=== PATIENT | male | born 1965 | race Two or more races ===

== ENCOUNTER 2024-10-02 20:38 | Inpatient (IN) | payer BC, OTHER ==
[~2024-10-02] VITALS: Ht 177.8 cm; Wt 75.9 kg
[~2024-10-02 20:38] MED LIST: METF-370
--- NOTE | 2024-10-02 21:03 | ED.PDOC ---
GI ASSESSMENT HPI Comments HPI: 59-year-old male presents to the ED with a chief complaint of nausea/vomiting onset 2 days. Patient states he has a hiatal hernia and gets monthly episodes of nausea/vomiting, resolves on its own but this episode has lasted 2 days. Patient describes his vomit as a dark brown color. Not able to eat/ drink due to sympto ms. Initial Vital Signs: Temp : 97.9 F BP: 147/79 HR: 115 RR: 20 SpO2: 99% Past Medcial History: Hiatal hernia, HTN, HLD, DM Past Surgical History: Cholecystectomy Johns HPI: Poor Historian. Past Medcial History: Past Surgical History: REVIEW OF SYSTEMS: CONSTITUTIONAL: Denies acute: fever, diaphoresis, chills, generalized weakness. HEAD: Denies acute: headache, photophobia Eyes: Denies acute: Double vision, vision loss, eye pain, eye discharge. EARS: Denies acute: tinnitus, hearing loss, ear discharge, ear pain, THROAT: Denies acute: sore throat, swelling, difficulty swallowing , pain with swallowing, change in voice. NECK: Denies acute: neck pain, neck swelling, stiff neck. HEART: Denies acute : chest pain, palpitations, LUNGS: Denies acute: SOB, wheezing, cough, hemoptysis ABDOMEN: Denies acute: diarrhea, melena , hematemesis, hematochezia SKIN: Denies acute: rash, redness, lesions, itchiness. EXTREMITIES: Denies acute: calf pain, numbness, tingling, weakness, denies pain in extremity. Denies acute: Low back pain. Neuro: Denies acute: focal neurological deficit, motor or sensory focal neurological deficit, tremors, seizure like activity, confusion, dizziness, change in mental status, loss of bowel or bladder function, cauda equina like symptoms. : Denies acute: dysuria, hematuria, flank pain, increase in urinary frequency. PSYCH: Denies acute: hallucination, suicidal ideation, homicidal ideation. PHYSICAL EXAM: General: no acute distress, awake and alert. Head: normocephalic, atraumatic. Neck: supple, trachea is midline, no swelling. Throat: Normal phonation. Eyes:, no erythema, no purulent discharge, no proptosis, no icterus. Heart: regular rate, regular rhythm, no significant murmur appreciated. Lungs: no apparent respiratory distress, Able to speak in full sentences. No wheezing, no rhonchi, no crackles. No stridors Clear to auscultation bilaterally. Abdomen: Epigastric tender to palpation, non distended, soft, no guarding, no rebound, + bowel sounds. Neuro: Awake, Alert, oriented to name, self, situation, follows commands GCS=15. Speech is normal. Skin: no petechia, no purpura, no cyanosis, non-pale, not jaundice. Lower extremities: --no - Pitting edema no deformity, no focal swelling, no calf TTP. Makes eye contact. moves all four extremities. Face: no apparent facial droop. Ambulating in the ED independently. Time Seen by MD: 20:59 Reviewed Notes: Medications, Allergies Allergies: Coded Allergies: Aspirin (Verified Allergy, Unknown, 10/02/24) Home Meds Reported Medications Metformin Hydrochloride (Metformin Hcl) 500 Mg Tab, BID 02/05/13 Information Source: Patient Mode of Arrival: Ambulatory Timing: Days Duration: Since onset Prehospital treatment: None Vomitus: Other (dark brown color) Severity: Moderate Recent: None Pain Location: Epigastric Associated sign and symptoms: Nausea, Vomiting, Abdominal Pain Past Medical History PAST MEDICAL HISTORY: DM, High Lipids, HTN Past Medical History (Other): hiatal hernia Surgical History: Cholecystectomy Family History Family History: Unknown Social History Smoker: Cigarettes Alcohol: Occasionally Drugs: Marijuana Lives In: Home Was a procedure done? Was a procedure done?: No X-Ray, Labs, Meds, VS Vital Signs Date Time Temp Pulse Resp B/P (MAP) Pulse Ox O2 Delivery O2 Flow Rate FiO2 10/02/24 21:01 97.9 115 20 147/79 (101) 99 Lab Test 10/02/24 21:36 10/02/24 21:06 Range/Units White Blood Count 20.0 H 4.4-10.8 10^3/uL Red Blood Count 4.99 4.5-5.90 10^6/uL Hemoglobin 13.2 L 13.5-17.5 g/dL Hematocrit 39.9 L 41.0-53.0 % Mean Corpuscular Volume 79.8 L 80.0-100.0 fL Mean Corpuscular Hemoglobin 26.4 L 28.0-32.0 pg Mean Corpuscular Hemoglobin Concent 33.1 32.0-36.0 g/dL Red Cell Distribution Width 15.4 H 11.8-14.3 % Platelet Count 711 H 140-450 10^3/uL Mean Platelet Volume 7.3 6.9-10.8 fL Neutrophils (%) (Auto) 82.5 H 37.0-80.0 % Lymphocytes (%) (Auto) 8.2 L 10.0-50.0 % Monocytes (%) (Auto) 8.8 0.0-12.0 % Eosinophils (%) (Auto) 0.0 0.0-7.0 % Basophils (%) (Auto) 0.5 0.0-2.0 % Neutrophils # (Auto) 16.5 H 1.6-8.6 10 ^3/uL Lymphocytes # (Auto) 1.6 0.4-5.4 10 ^3/uL Monocytes # (Auto) 1.8 H 0-1.3 10 ^3/uL Eosinophils # (Auto) 0 0-0.8 10 ^3/uL Basophils # (Auto) 0.1 0-0.2 10 ^3/uL Nucleated Red Blood Cells 0.0 % Sodium Level 136 136-145 mmol/L Potassium Level 3.7 3.5-5.1 mmol/L Chloride Level 100 98-107 mmol/L Carbon Dioxide Level 18 L 20-31 mmol/L Anion Gap 18 H 5-15 Blood Urea Nitrogen 18 9-23 mg/dL Creatinine 0.74 0.700-1.30 mg/dL Glomerular Filtration Rate Calc 105 >90 mL/min BUN/Creatinine Ratio 24.3 H 10.0-20.0 Serum Glucose 160 H 74-106 mg/dL Lactic Acid Level 1.3 0.4-2.0 mmol/L Calcium Level 10.5 H 8.7-10.4 mg/dL Magnesium Level 2.0 1.6-2.6 mg/dL Total Bilirubin 0.8 0.2-1.0 mg/dL Aspartate Amino Transferase (AST) 42 H 13-40 U/L Alanine Aminotransferase (ALT) 18 7-40 U/L Alkaline Phosphatase 301 H 46-116 U/L Troponin I High Sensitivity 6 </=54 ng/L Total Protein 7.8 5.7-8.2 g/dL Albumin 5.0 H 3.2-4.8 g/dL Lipase 27 12-53 U/L Urine Color Yellow Yellow Urine Clarity Clear Clear Urine pH 5.5 5.0-9.0 Urine Specific [place] 1.043 H 1.001-1.035 Urine Protein 1+ H Negative Urine Ketones 4+ H Negative Urine Blood 1+ H Negative /uL Urine Nitrite Negative Negative Urine Bilirubin Negative Negative Urine Urobilinogen Normal Negative mg/dL Urine Leukocyte Esterase Negative Negative /uL Urine RBC 5 0 - 3 /hpf Urine WBC 1 0 - 3 /hpf Urine Squamous Epithelial Cells None seen <5 /hpf Urine Bacteria None seen None Seen /hpf Urine Glucose 4+ H Normal mg/dL [facility] [id number] [address] Ph: [phone] DIAGNOSTIC IMAGING Diagnostic Imaging Report : [id number] Signed PATIENT: BAILEY JOHNS ACCT: [id number] UNIT: [id number] : 1965 LOC: ER ROOM / BED: / AGE / SEX: 59 / M ADM STATUS: REG ER SERVICE 05 ORDERING PHYSICIAN: TIANA MEJIA DO PROCEDURE(s): ABPL - CT AB PEL WO CON-NO ORAL OR IV REASON: epig pain n/v ORDER NUMBER(s): [id number], ACCESSION NUMBER(s): [id number] Exam: CT CT AB PEL WO CON-NO ORAL OR IV History: epig pain n/v Comparison Study: None available at time of dictation. TECHNIQUE: Multidetector CT of the abdomen was performed from lung bases to pubic symphysis. Imaging was performed without IV contrast. Axial, coronal and sagittal multiplanar reformats were obtained from the axial data set by the technologist. Radiation Dose Information: CT Dose: CTDI volume is 7.82 mGy. Dose-length product is 46.72 mGy*cm FINDINGS: Evaluation of solid organs is limited due to lack of intravenous contrast use. Findings: Lung Bases: No acute or significant lung base finding. Normal heart size. No pleural or pericardial effusion. Liver: Above and lateral to the caudate lobe is an ill-defined area measuring 5.1 by 4.6 cm of increased tissue density. The tissue density is approximately 96 Hounsfield units and may represent hemorrhage. There are also small collections of gas most likely in the biliary system however can not entirely exclude portal air. Gallbladder and Biliary Tree: Appears to have been surgically removed. Spleen: Unremarkable Pancreas: The pancreas is grossly normal in appearance. Adrenal Glands: Unremarkable Kidneys: Kidneys are grossly normal without calculi or hydronephrosis. Bladder: Grossly unremarkable for degree of distention. Bowel: The stomach is grossly normal in appearance. Small bowel and colon are normal in caliber and distribution. The appendix is not visualized; however, no secondary findings of acute appendicitis identified. Ascites: Absent Lymphadenopathy: No mesenteric, retroperitoneal or periportal lymphadenopathy. Abdominal Wall and Mesentery: Unremarkable. Vasculature: The visualized abdominal aorta is normal in size and caliber. Evaluation of abdominal and pelvic vessels is limited due to lack of intravenous contrast. Pelvic Organs: Unremarkable Musculoskeletal: No aggressive focal bony lesions, acute fractures or dislocation. Soft tissues: Unremarkable IMPRESSION: 1. Ill-defined region of increased tissue density in the liver measuring 5.1 x 4.6 cm. Tissue density is 96 Hounsfield units and may represent acute hemorrhage. Correlate clinical history. 2. Patient appears to be status post cholecystectomy. 3. Gas most likely in the biliary tree however can not entirely exclude portal gas. 4. No free air or free fluid. Radiation optimization: All CT scans at this facility use at least one of these dose optimization techniques: automated exposure control mA and/or kV adjustment per patient size (includes targeted exams where dose is matched to clinical indication) or iterative reconstruction. HS:Y ATED BY: KATHLEEN RODRIGUEZ Jr., DO DICTATED DATE/TIME: 10/02/242143 SIGNED BY: KATHLEEN RODRIGUEZ Jr., SIGNED DATE/TIME: 10/02/242143 CC: Time of 1ST Reevaluation: 21:29 Reevaluation 1ST: Unchanged Time of 2ND Reevaluation: 22:17 (CT scan findings suggest possible portal vein gas. Patient clinically looks stable. He has history of cholecystectomy. He gets these episodes at least once a month but this one lasted a little longer. I started the patient on antibiotics given his leukocytosis.) Patient Education/Counseling: Diagnosis, Treatment, Prognosis Family Education/Counseling: No Family Present Departure 1 Departure Time of Disposition: 22:15 Impression: Primary Impression: Epigastric abdominal pain Additional Impressions: Hiatal hernia Nausea & vomiting Leukocytosis Abnormal finding on CT scan Disposition: ADMITTED INPATIENT Admit to: Tele Condition: Guarded Additional Instructions: [address] [address] Ph: [phone] DIAGNOSTIC IMAGING Diagnostic Imaging Report : [id number] Signed PATIENT: BAILEY JOHNS ACCT: [id number] UNIT: [id number] : 1965 LOC: ER ROOM / BED: / AGE / SEX: 59 / M ADM STATUS: REG ER SERVICE 05 ORDERING PHYSICIAN: TIANA MEJIA DO PROCEDURE(s): ABPL - CT AB PEL WO CON-NO ORAL OR IV REASON: epig pain n/v ORDER NUMBER(s): [id number], ACCESSION NUMBER(s): [id number] Exam: CT CT AB PEL WO CON-NO ORAL OR IV History: epig pain n/v Comparison Study: None available at time of dictation. TECHNIQUE: Multidetector CT of the abdomen was performed from lung bases to pubic symphysis. Imaging was performed without IV contrast. Axial, coronal and sagittal multiplanar reformats were obtained from the axial data set by the technologist. Radiation Dose Information: CT Dose: CTDI volume is 7.82 mGy. Dose-length product is 46.72 mGy*cm FINDINGS: Evaluation of solid organs is limited due to lack of intravenous contrast use. Findings: Lung Bases: No acute or significant lung base finding. Normal heart size. No pleural or pericardial effusion. Liver: Above and lateral to the caudate lobe is an ill-defined area measuring 5.1 by 4.6 cm of increased tissue density. The tissue density is approximately 96 Hounsfield units and may represent hemorrhage. There are also small collections of gas most likely in the biliary system however can not entirely exclude portal air. Gallbladder and Biliary Tree: Appears to have been surgically removed. Spleen: Unremarkable Pancreas: The pancreas is grossly normal in appearance. Adrenal Glands: Unremarkable Kidneys: Kidneys are grossly normal without calculi or hydronephrosis. Bladder: Grossly unremarkable for degree of distention. Bowel: The stomach is grossly normal in appearance. Small bowel and colon are normal in caliber and distribution. The appendix is not visualized; however, no secondary findings of acute appendicitis identified. Ascites: Absent Lymphadenopathy: No mesenteric, retroperitoneal or periportal lymphadenopathy. Abdominal Wall and Mesentery: Unremarkable. Vasculature: The visualized abdominal aorta is normal in size and caliber. Evaluation of abdominal and pelvic vessels is limited due to lack of intravenous contrast. Pelvic Organs: Unremarkable Musculoskeletal: No aggressive focal bony lesions, acute fractures or dislocation. Soft tissues: Unremarkable IMPRESSION: 1. Ill-defined region of increased tissue density in the liver measuring 5.1 x 4.6 cm. Tissue density is 96 Hounsfield units and may represent acute hemorrhage. Correlate clinical history. 2. Patient appears to be status post cholecystectomy. 3. Gas most likely in the biliary tree however can not entirely exclude portal gas. 4. No free air or free fluid. Radiation optimization: All CT scans at this facility use at least one of these dose optimization techniques: automated exposure control mA and/or kV adjustment per patient size (includes targeted exams where dose is matched to clinical indication) or iterative reconstruction. HS:Y ATED BY: KATHLEEN RODRIGUEZ Jr., DO DICTATED DATE/TIME: 10/02/242143 SIGNED BY: KATHLEEN RODRIGUEZ Jr., DO SIGNED DATE/TIME: 10/02/242143 CC: Discharged With: Self Stability Stability form required: No Heart Score Heart Score: Heart Score Response (Comments) Value History Slightly Suspicious 0 EKG Normal 0 Age 45-64 1 Risk Factors 1 or 2 risk factors 1 Troponin Normal limit 0 Total 2 I personally scribed for TIANA MEJIA DO ([email or web address]) on 10/02/24 at 21:03. Electronically submitted by Cathleen Andre ([email or web address]). I personally scribed for TIANA MEJIA DO ([email or web address]) on 10/02/24 at 21:05. Electronically submitted by Cathleen Andre ([email or web address]). I personally scribed for TIANA MEJIA DO ([email or web address]) on 10/02/24 at 21:09. Electronically submitted by Cathleen Andre ([email or web address]). I personally scribed for TIANA MEJIA DO ([email or web address]) on 10/02/24 at 21:10. Electronically submitted by Cathleen Andre ([email or web address]). I personally scribed for TIANA MEJIA DO ([email or web address]) on 10/02/24 at 21:25. Electronically submitted by Cathleen Andre ([email or web address]). I personally scribed for TIANA MEJIA DO ([email or web address]) on 10/02/24 at 21:50. Electronically submitted by Cathleen Andre ([email or web address]). I personally scribed for TIANA MEJIA DO ([email or web address]) on 10/02/24 at 22:00. Electronically submitted by Cathleen Andre ([email or web address]). TIANA MEJIA DO Oct 02, 2024 21:03
--- NOTE | 2024-10-02 21:47 | DVH ---
Exam: CT CT AB PEL WO CON-NO ORAL OR IV History: epig pain n/v Comparison Study: None available at time of dictation. TECHNIQUE: Multidetector CT of the abdomen was performed from lung bases to pubic symphysis. Imaging was performed without IV contrast. Axial, coronal and sagittal multiplanar reformats were obtained fr om the axial data set by the technologist. Radiation Dose Information: CT Dose: CTDI volume is 7.82 mGy. Dose-length product is 46.72 mGy*cm FINDINGS: Evaluation of solid organs is limited due to lack of intravenous contrast use. Findings: Lung Bases: No acute or significant lung base finding. Normal heart size. No pleural or pericardial effusion. Liver: Above and lateral to the caudate lobe is an ill-defined area measuring 5.1 by 4.6 cm of increa sed tissue density. The tissue density is approximately 96 Hounsfield units and may represent hemorrh age. There are also small collections of gas most likely in the biliary system however can not entire ly exclude portal air. Gallbladder and Biliary Tree: Appears to have been surgically removed. Spleen: Unremarkable Pancreas: The pancreas is grossly normal in appearance. Adrenal Glands: Unremarkable Kidneys: Kidneys are grossly normal without calculi or hydronephrosis. Bladder: Grossly unremarkable for degree of distention. Bowel: The stomach is grossly normal in appearance. Small bowel and colon are normal in caliber and d istribution. The appendix is not visualized; however, no secondary findings of acute appendicitis id entified. Ascites: Absent Lymphadenopathy: No mesenteric, retroperitoneal or periportal lymphadenopathy. Abdominal Wall and Mesentery: Unremarkable. Vasculature: The visualized abdominal aorta is normal in size and caliber. Evaluation of abdominal a nd pelvic vessels is limited due to lack of intravenous contrast. Pelvic Organs: Unremarkable Musculoskeletal: No aggressive focal bony lesions, acute fractures or dislocation. Soft tissues: Unremarkable IMPRESSION: 1. Ill-defined region of increased tissue density in the liver measuring 5.1 x 4.6 cm. Tissue density is 96 Hounsfield units and may represent acute hemorrhage. Correlate clinical history. 2. Patient appears to be status post cholecystectomy. 3. Gas most likely in the biliary tree however can not entirely exclude portal gas. 4. No free air or free fluid. Radiation optimization: All CT scans at this facility use at least one of these dose optimization kristin hniques: automated exposure control mA and/or kV adjustment per patient size (includes targeted exam s where dose is matched to clinical indication) or iterative reconstruction. HS:Y
[2024-10-02 21:52] LABS: Urine Bacteria None Seen /hpf (None Seen)
[2024-10-02 21:55] LABS: Basophils # (auto) 0.1 10 ^3/uL (0-0.2); Basophils % (auto) 0.5 % (0.0-2.0); Eosinophils # (auto) 0 10 ^3/uL (0-0.8); Hematocrit 39.9 % (41.0-53.0); Hemoglobin 13.2 g/dL (13.5-17.5); Lymphocytes # (auto) 1.6 10 ^3/uL (0.4-5.4); Lymphocytes % (auto) 8.2 % (10.0-50.0); Mean Corpuscular Hemoglobin 26.4 pg (28.0-32.0); Mean Corpuscular Hgb Conc. 33.1 g/dL (32.0-36.0); Mean Corpuscular Volume 79.8 fL (80.0-100.0); Monocytes # (auto) 1.8 10 ^3/uL (0-1.3); Monocytes % (auto) 8.8 % (0.0-12.0); Neutrophils # (auto) 16.5 10 ^3/uL (1.6-8.6); Neutrophils % (auto) 82.5 % (37.0-80.0); Platelet Count (auto) 711 10^3/uL (140-450); Red Blood Cells 4.99 10^6/uL (4.5-5.90); Red Cell Distribution Width 15.4 % (11.8-14.3)
[2024-10-02 22:01] LABS: Urine Blood 1+ /uL (Negative); Urine Clarity Clear (Clear); Urine Color Yellow (Yellow); Urine Protein, UAD 1+ (Negative); Urine Specific Gravity 1.043 (1.001-1.035); Urine Urobilinogen Normal (Negative); Urine WBC 1 /hpf (0 - 3); Urine pH 5.5 (5.0-9.0)
[2024-10-02 22:13] LABS: Alanine Aminotransferase 18 U/L (7-40); Anion Gap 18 (5-15); BUN/Creatinine Ratio 24.3 (10.0-20.0); Blood Urea Nitrogen 18 mg/dL (9-23); Chloride 100 mmol/L (98-107); Lipase 27 U/L (12-53); Potassium 3.7 mmol/L (3.5-5.1); Sodium 136 mmol/L (136-145)
[2024-10-02 22:14] LABS: Alkaline Phosphatase 301 U/L (46-116); Aspartate Aminotransferase 42 U/L (13-40); Bilirubin, Total 0.8 mg/dL (0.2-1.0); Calcium 10.5 mg/dL (8.7-10.4); Carbon Dioxide 18 mmol/L (20-31); Glucose 160 mg/dL (74-106); Total Protein 7.8 g/dL (5.7-8.2)
[2024-10-02] MEDS: SUCRALFATE 1 GM TAB PO ONE (23:24)
[2024-10-02] MEDS: LIDOCAINE VISCOUS 2% 15ML UD PO ONE (23:24)
[2024-10-02] MEDS: PIPERACILLIN-TAZOB 3.375GM 100 ML IV ONE (23:25)
[2024-10-02] MEDS: ONDANSETRON HCL 4 MG/2 ML VIAL IV ONE (23:25)
[2024-10-02] MEDS: SODIUM CHLORIDE 0.9% 1,000 ML IV ONE (23:25)
[2024-10-02] MEDS: PANTOPRAZOLE 40 MG/10 ML VIAL INJ IV ONE (23:25)
[2024-10-02 23:27] VITALS: PULSE 115; RESP 20; O2SAT 99
[2024-10-03 02:03] VITALS: PULSE 121; RESP 15; O2SAT 98
[2024-10-03] MEDS ORDERED: ACETAMINOPHEN 325 MG TAB PO PRN (05:00)
[2024-10-03] MEDS ORDERED: ONDANSETRON HCL 4 MG/2 ML VIAL IV PRN ×2 (05:00→11:45)
[2024-10-03] MEDS ORDERED: MORPHINE SULFATE INJ 2 MG/ml SYRG IV PRN ×2 (05:00)
[2024-10-03] MEDS ORDERED: HYDROcodone-ACET 5/325MG TAB PO PRN (05:00)
[2024-10-03] MEDS ORDERED: DOCUSATE SOD 100 MG CAP PO PRN (05:00)
[2024-10-03] MEDS ORDERED: NITROGLYCERIN 0.4 MG SL TAB SL PRN (05:00)
[2024-10-03] MEDS ORDERED: DEXTROSE (50%) 50ML SYRG IV PRN (05:00)
--- NOTE | 2024-10-03 05:19 | DVHHP2 ---
History of Present Illness Reason for Visit: Epigastric abdominal pain History of Present Illness The patient is a 59-year-old male with past medical history of DM, hypertension, hyperlipidemia, and hernia hernia who presented to [facility] ED with complaint of epigastric abdominal pain. Patient reports symptoms pro gressively get worse with nausea, vomiting, getting worse that prompted this visit. Patient was seen and evaluated in the ED, laboratory data shows elevated WBC 20.0, platelets 711, sodium 136, potassium 3.7, BUN 18, creatinine 0.74, GFR 105, glucose 160, anion gap 18, lipase 27, AST 42, ALT 18, troponin five, blood pressure 106/55, heart rate 99, temperature 97.9 F, O2 saturation 97% on room air. Abdomen/pelvis CT revealing ill-defined region of increased tissue density in the liver measuring 5.1 x 4.6 cm, tissue density is 96 Hounsfield units and may represent acute hemorrhage, correlate clinical history. Patient was started on IV antibiotic regimen Zosyn, please see medication orders section in the computer. On my assessment, patient denies abdominal pain at this moment, no diarrhea, no nausea or vomiting, no fever, no chills. Patient was admitted for further evaluation and medical management. Past Medical History Hiatal hernia, HTN, HLD, DM Past Surgical History Cholecystectomy Family History Reviewed, noncontributory to the management of this case. Past Social History Patient lives at home, smokes cigarettes, drinks alcohol occasionally, uses [employer]. Review of Systems Constitutional: No: Fever, Chills, Sweats, Weakness, Malaise, Other Eyes: No: Pain, Vision change, Conjunctivae inflammation, Eyelid inflammation, Other, Redness ENT: No: Ear pain, Ear discharge, Nose pain, Nose discharge, Nose congestion, Mouth pain, Mouth swelling, Throat pain, Throat swelling, Other Respiratory: No: Cough, Dry, Shortness of breath, SOB with excertion, Wheezing, Hemoptysis, Pleuritic Pain, Sputum, Wheezing, Other Cardiovascular: No: Chest Pain, Palpitations, Orthopnea, Paroxysmal Noc. Dyspnea, Edema, Lt Headedness, Other Gastrointestinal: Nausea, Vomiting, Abdominal Pain; No: Diarrhea, Constipation, Melena, Hematochezia, Other Genitourinary: No Dysuria, No Frequency, No Incontinence, No Hematuria, No Retention, No Other Musculoskeletal: No: other, neck pain, shoulder pain, arm pain, back pain, hand pain, leg pain, foot pain Skin: No: Rash, Lesions, Jaundice, Bruising, Other Neurological: No: Weakness, Numbness, Incoordination, Change in speech, Co nfusion, Seizures, Other Allergies: Coded Allergies: Aspirin (Verified Allergy, Unknown, 10/02/24) Exam Vital Signs Vital Signs Date Time Temp Pulse Resp B/P (MAP) Pulse Ox O2 Delivery O2 Flow Rate FiO2 10/03/24 04:00 99 10/03/24 04:00 17 106/55 (72) 97 10/03/24 02:03 Room Air* 0 21 10/02/24 23:27 97.9 97.9 General Appearance: Alert, Oriented X3, Cooperative, No acute distress HEENT: Atraumatic, PERRLA, EOMI, Mucous membr. moist/pink Respiratory: Clear to auscultation, Normal air movement Cardiovascular: Regular rate, Normal S1, Normal S2, No murmurs Abdominal: Normal bowel sounds, Soft, No hepatospenomegaly, No masses, Other (Reports tenderness) Extremities: No clubbing, No cyanosis, No edema, Normal pulses, No tenderness/swelling Skin: No rashes, No breakdown, No significant lesion Neuro: Normal speech, Normal tone, Sensation intact, Cranial nerves 3-12 NL, Reflexes 2+, Other (Generalized weakness) Psych/Mental Status: Mental status NL, Mood NL Labs/Xrays Labs Test 10/02/24 22:47 10/02/24 21:36 10/02/24 21:06 Range/Units Troponin I High Sensitivity 5 </=54 ng/L White Blood Count 20.0 H 4.4-10.8 10^3/uL Red Blood Count 4.99 4.5-5.90 10^6/uL Hemoglobin 13.2 L 13.5-17.5 g/dL Hematocrit 39.9 L 41.0-53.0 % Mean Corpuscular Volume 79.8 L 80.0-100.0 fL Mean Corpuscular Hemoglobin 26.4 L 28.0-32.0 pg Mean Corpuscular Hemoglobin Concent 33.1 32.0-36.0 g/dL Red Cell Distribution Width 15.4 H 11.8-14.3 % Platelet Count 711 H 140-450 10^3/uL Mean Platelet Volume 7.3 6.9-10.8 fL Neutrophils (%) (Auto) 82.5 H 37.0-80.0 % Lymphocytes (%) (Auto) 8.2 L 10.0-50.0 % Monocytes (%) (Auto) 8.8 0.0-12.0 % Eosinophils (%) (Auto) 0.0 0.0-7.0 % Basophils (%) (Auto) 0.5 0.0-2.0 % Neutrophils # (Auto) 16.5 H 1.6-8.6 10 ^3/uL Lymphocytes # (Auto) 1.6 0.4-5.4 10 ^3/uL Monocytes # (Auto) 1.8 H 0-1.3 10 ^3/uL Eosinophils # (Auto) 0 0-0.8 10 ^3/uL Basophils # (Auto) 0.1 0-0.2 10 ^3/uL Nucleated Red Blood Cells 0.0 % Sodium Level 136 136-145 mmol/L Potassium Level 3.7 3.5-5.1 mmol/L Chloride Level 100 98-107 mmol/L Carbon Dioxide Level 18 L 20-31 mmol/L Anion Gap 18 H 5-15 Blood Urea Nitrogen 18 9-23 mg/dL Creatinine 0.74 0.700-1.30 mg/dL Glomerular Filtration Rate Calc 105 >90 mL/min BUN/Creatinine Ratio 24.3 H 10.0-20.0 Serum Glucose 160 H 74-106 mg/dL Lactic Acid Level 1.3 0.4-2.0 mmol/L Calcium Level 10.5 H 8.7-10.4 mg/dL Magnesium Level 2.0 1.6-2.6 mg/dL Total Bilirubin 0.8 0.2-1.0 mg/dL Aspartate Amino Transferase (AST) 42 H 13-40 U/L Alanine Aminotransferase (ALT) 18 7-40 U/L Alkaline Phosphatase 301 H 46-116 U/L Total Protein 7.8 5.7-8.2 g/dL Albumin 5.0 H 3.2-4.8 g/dL Lipase 27 12-53 U/L Urine Color Yellow Yellow Urine Clarity Clear Clear Urine pH 5.5 5.0-9.0 Urine Specific [place] 1.043 H 1.001-1.035 Urine Protein 1+ H Negative Urine Ketones 4+ H Negative Urine Blood 1+ H Negative /uL Urine Nitrite Negative Negative Urine Bilirubin Negative Negative Urine Urobilinogen Normal Negative mg/dL Urine Leukocyte Esterase Negative Negative /uL Urine RBC 5 0 - 3 /hpf Urine WBC 1 0 - 3 /hpf Urine Squamous Epithelial Cells None seen <5 /hpf Urine Bacteria None seen None Seen /hpf Urine Glucose 4+ H Normal mg/dL PATIENT: BAILEY JOHNS ACCT: [id number] UNIT: [id number] : 1965 LOC: ER ROOM / BED: / AGE / SEX: 59 / M ADM STATUS: REG ER SERVICE 05 ORDERING PHYSICIAN: TIANA MEJIA DO PROCEDURE(s): ABPL - CT AB PEL WO CON-NO ORAL OR IV REASON: epig pain n/v ORDER NUMBER(s): [id number], ACCESSION NUMBER(s): [id number] Exam: CT CT AB PEL WO CON-NO ORAL OR IV History: epig pain n/v Comparison Study: None available at time of dictation. TECHNIQUE: Multidetector CT of the abdomen was performed from lung bases to pubic symphysis. Imaging was performed without IV contrast. Axial, coronal and sagittal multiplanar reformats were obtained from the axial data set by the technologist. Radiation Dose Information: CT Dose: CTDI volume is 7.82 mGy. Dose-length product is 46.72 mGy*cm FINDINGS: Evaluation of solid organs is limited due to lack of intravenous contrast use. Findings: Lung Bases: No acute or significant lung base finding. Normal heart size. No pleural or pericardial effusion. Liver: Above and lateral to the caudate lobe is an ill-defined area measuring 5.1 by 4.6 cm of increased tissue density. The tissue density is approximately 96 Hounsfield units and may represent hemorrhage. There are also small collections of gas most likely in the biliary system however can not entirely exclude portal air. Gallbladder and Biliary Tree: Appears to have been surgically removed. Spleen: Unremarkable Pancreas: The pancreas is grossly normal in appearance. Adrenal Glands: Unremarkable Kidneys: Kidneys are grossly normal without calculi or hydronephrosis. Bladder: Grossly unremarkable for degree of distention. Bowel: The stomach is grossly normal in appearance. Small bowel and colon are normal in caliber and distribution. The appendix is not visualized; however, no secondary findings of acute appendicitis identified. Ascites: Absent Lymphadenopathy: No mesenteric, retroperitoneal or periportal lymphadenopathy. Abdominal Wall and Mesentery: Unremarkable. Vasculature: The visualized abdominal aorta is normal in size and caliber. Evaluation of abdominal and pelvic vessels is limited due to lack of intravenous contrast. Pelvic Organs: Unremarkable Musculoskeletal: No aggressive focal bony lesions, acute fractures or dislocation. Soft tissues: Unremarkable IMPRESSION: 1. Ill-defined region of increased tissue density in the liver measuring 5.1 x 4.6 cm. Tissue density is 96 Hounsfield units and may represent acute hemorrhage. Correlate clinical history. 2. Patient appears to be status post cholecystectomy. 3. Gas most likely in the biliary tree however can not entirely exclude portal gas. 4. No free air or free fluid. Assessment/Plan Assessment/Plan Epigastric abdominal pain Hiatal hernia Thrombocytosis Nausea & vomiting Leukocytosis, unspecified Generalized weakness Plan 1. Admit to med surge unit 2. Breathing treatment 3. Pain control management 4. IV antibiotic management 5. Management of fluids and electrolytes 6. Consultation for hospitalist 7. Diagnostic test abdomen/pelvis CT 8. DVT prophylaxis-on Plavix 9. Repeat labs CBC, CMP in a.m. 10. Home medication reviewed and reconciled 11. Continue with current medical management 12. Treatment plan discussed with patient and RN. Patient verbalized understanding. Plan discussed with: Patient, Other (RN) Problem List: (1) Epigastric abdominal pain (2) Nausea & vomiting (3) Thrombocytosis (4) Leukocytosis, unspecified (5) Hiatal hernia (6) Generalized weakness Date of Service: Oct 03, 2024 Billing Provider: SENA SKAGGS DNP Common Visit Codes: [id number] INP/OBS CARE (HIGH) SENA SKAGGS DNP Oct 03, 2024 05:19
[2024-10-03 06:10] VITALS: PULSE 106; RESP 16; O2SAT 95
[2024-10-03] MEDS: metroNIDAZOLE 500MG/100ML 100 ML IV SCH (06:18)
[2024-10-03] MEDS: ACCU-CHEK COMFORT CURVE STRIP VI SCH (06:40)
[2024-10-03] MEDS: InsuLIN REG 1unit/0.01ml Soln (100units/ml) SC SCH (06:41)
[2024-10-03 07:20] VITALS: RESP 17
--- NOTE | 2024-10-03 07:42 | ECG ---
[facility] Test Date: 2024-10-02 Test Time: 21:59:12 Pat Name: BAILEY JOHNS Department: ER Room: [address] [place] [address] Gender: M Patient Financial Representative: MOLLY : 1965 Requested By: TIANA MEJIA Order Number: [id number] Reading MD: Measurements Intervals [place] Rate: 105 P: 70 DC: 152 QRS: 65 QRSD: 100 T: -14 QT: 340 QTc: 450 Interpretive Statements Sinus tachycardia Borderline repolarization abnormality Please click the below link to view image of tracing.
[2024-10-03 07:50] LABS: Eosinophils # (auto) 0 10 ^3/uL (0-0.8); Eosinophils % (auto) 0.1 % (0.0-7.0); Hemoglobin 12.2 g/dL (13.5-17.5); Mean Corpuscular Hemoglobin 26.2 pg (28.0-32.0); Mean Corpuscular Hgb Conc. 32.6 g/dL (32.0-36.0); Monocytes # (auto) 1.5 10 ^3/uL (0-1.3); Monocytes % (auto) 10.8 % (0.0-12.0); White Blood Cell 13.7 10^3/uL (4.4-10.8)
[2024-10-03 07:53] LABS: Basophils # (auto) 0.1 10 ^3/uL (0-0.2); Basophils % (auto) 0.5 % (0.0-2.0); Hematocrit 37.5 % (41.0-53.0); Lymphocytes # (auto) 1.9 10 ^3/uL (0.4-5.4); Lymphocytes % (auto) 13.9 % (10.0-50.0); Mean Corpuscular Volume 80.3 fL (80.0-100.0); Neutrophils # (auto) 10.2 10 ^3/uL (1.6-8.6); Neutrophils % (auto) 74.7 % (37.0-80.0); Platelet Count (auto) 543 10^3/uL (140-450); Red Blood Cells 4.67 10^6/uL (4.5-5.90); Red Cell Distribution Width 15.5 % (11.8-14.3)
[2024-10-03 08:05] LABS: Alanine Aminotransferase 15 U/L (7-40); Albumin 4.5 g/dL (3.2-4.8); Anion Gap 12 (5-15); BUN/Creatinine Ratio 18.6 (10.0-20.0); Blood Urea Nitrogen 18 mg/dL (9-23); Carbon Dioxide 24 mmol/L (20-31); Chloride 102 mmol/L (98-107); Sodium 138 mmol/L (136-145)
[2024-10-03 08:06] LABS: Bilirubin, Total 0.7 mg/dL (0.2-1.0); Total Protein 7.5 g/dL (5.7-8.2)
[2024-10-03 08:08] LABS: Alkaline Phosphatase 258 U/L (46-116); Aspartate Aminotransferase 41 U/L (13-40); Glucose 212 mg/dL (74-106); Potassium 3.1 mmol/L (3.5-5.1)
[2024-10-03] MEDS: cefTRIAXone 1GM/50ML D5W 50 ML IV SCH (09:16)
[2024-10-03] MEDS: CLOPIDOGREL BISULFATE 75 MG TAB PO SCH (09:41)
[2024-10-03] MEDS: POTASSIUM CHLORIDE 60 MEQ, LIDOCAINE 1% (LOCAL ANESTH.) 6 ML in SODIUM CHL 0.9% 500 ML IV ONE (09:45)
[2024-10-03] MEDS: PANTOPRAZOLE 40 MG/10 ML VIAL INJ IV SCH (10:00)
--- NOTE | 2024-10-03 10:44 | DVH ---
CHEST RADIOGRAPH Indication: Rule out pneumonia Technique: Single frontal view of the chest was obtained COMPARISON: None FINDINGS: Lines and Tubes: None Lungs: Clear Pleura: No effusion. No pneumothorax. Cardiomediastinal contours: Unremarkable Bones: Unremarkable IMPRESSION: 1. No acute disease.
[2024-10-03] MEDS ORDERED: POTASSIUM CHL 20 Meq TABLET PO ONE (11:15)
--- NOTE | 2024-10-03 11:19 | DVHPNRES ---
Progress Note Date Seen: Oct 03, 2024 Resident Creating Document: ESTEPHANIA DE LOS SANTOS RESIDENT Subjective Review of Systems Patient is 59 years old male with past medical history of diabetes mellitus type 2, hyperlipidemia, hiatal hernia, torne meniscus of the right knee, history of right shoulder rotator cuff tear 4 times, smoker, substance abuse marijuana came with a complaint of abdominal pain. As per patient patient has been having epigastric pain for last 2 days, stabbing in nature, sudden once a day, maximum severity was 10/10, now relieved 2to 0, no aggravating or relieving factor. Patient also endorsed nausea and vomiting almost 20 3 times, dark brown fluid, no blood as per patient. Patient denied any fever, chest pain, shortness of breath, acute joint pain or swelling, dysuria, dysarthria, change in vision. Initial lab workup revealed leukocytosis with WBC 20.0 thrombocytosis with platelet 711, hypokalemia with potassium 3.1, increased anion gap 18, POC 210, HGB A1c 7.4, TSH 1.18, lactic acid is 1.3, alkaline phosphatase elevated 301, troponin I 6, lipase 27. CT abdomen [id number] region of increased tissue density in the liver measuring 5.1 x 4.6 cm. Tissue density is 96 Hounsfield units and may represent acute hemorrhage. Correlate clinical history. Patient appears to be status post cholecystectomy. Gas most likely in the biliary tree however can not entirely exclude portal gas. CXR no acute disease. PMH-diabetes mellitus type 2, hyperlipidemia, hiatal hernia, torne meniscus of the right knee, history of right shoulder rotator cuff tear 4 times, smoker, substance abuse marijuana PSH- cholecystectomy Allergy- aspirin Personal History/ Social History- smoker smokes 5 cigarettes per day, ex alcoholic, use marijuana+ Patient was seen today at the bedside. Patient Cardiovascular- deny acute chest pain or shortness of breath or cough or palpitation Respiratory- denies cough or short of breath or wheezing Gastrointestinal- denies any rectal bleeding, nausea or vomiting Musculoskeletal-denies acute joint swelling or tenderness or redness Neurological- denies acute dysarthria, dysphagia, change in vision Psychiatry- denies depression or SI or HI Skin- denies acute rash or purpura Patient was seen today for clinical evaluation. Labs and chart reviewed. Patient reports pain has subsided, feeling much better, tolerating food well, denied any fever or dysuria. Initial lab workup revealed leukocytosis with WBC 20.0 thrombocytosis with platelet 711, hypokalemia with potassium 3.1, increased anion gap 18, POC 210,, A1c 7.4, elevated alkaline phosphatase 301,, lipase 27. CT abdomen [id number] region of increased tissue density in the liver measuring 5.1 x 4.6 cm. Tissue density is 96 Hounsfield units and may represent acute hemorrhage. Correlate clinical history. Patient appears to be status post cholecystectomy. Gas most likely in the biliary tree however can not entirely exclude portal gas. CXR no acute disease. Ordered potassium supplement for hypokalemia, WBC trending down. Anion gap resolving. Objective vital signs Vital Sign Date Time Temp Pulse Resp B/P (MAP) Pulse Ox O2 Delivery O2 Flow Rate FiO2 10/03/24 10:30 98 16 118/63 (81) 98 10/03/24 07:20 Room Air* 0 21 10/03/24 06:10 98.9 98.9 Total Intake and Output 10/02/24 10/02/24 10/03/24 15:00 23:00 07:00 Intake Total 1100 ml Balance 1100 ml medications Current Medications Medications Dose Ordered Sig/Luciana Route Start Time Stop Time Status Last Admin Dose Admin Ceftriaxone Sodium 50 ml @ 100 mls/hr DAILY@09 IV 10/03/24 09:00 10/03/24 09:16 100 MLS/HR Metronidazole 100 ml @ 100 mls/hr Q8HR IV 10/03/24 06:00 10/03/24 06:18 100 MLS/HR Pantoprazole Sodium 40 mg DAILY IV 10/03/24 10:00 10/03/24 10:00 40 MG Diagnostic Test (Pha) 1 strip Q6HR 10/03/24 06:00 10/03/24 06:40 1 STRIP Insulin Human Regular Q6HR SC 10/03/24 06:00 10/03/24 06:41 4 UNITS Dextrose 50 ml UD PRN IV 10/03/24 05:00 Acetaminophen/ Hydrocodone Bitart 1 tab Q4HP PRN PO 10/03/24 05:00 Ondansetron HCl 4 mg Q4HP PRN IV 10/03/24 05:00 Docusate Sodium 100 mg BIDPRN PRN PO 10/03/24 05:00 Acetaminophen 650 mg Q6HP PRN PO 10/03/24 05:00 Morphine Sulfate 2 mg Q4HPRN PRN IV 10/03/24 05:00 Nitroglycerin 0.4 mg Q5MINP PRN SL 10/03/24 05:00 Morphine Sulfate 2 mg Q30M PRN IV 10/03/24 05:00 Atorvastatin Calcium 20 mg HS PO 10/03/24 22:00 Clopidogrel Bisulfate 75 mg DAILY PO 10/03/24 10:00 10/03/24 09:41 75 MG Examination General examination- awake, alert, oriented, conversant HEENT- PEERLA, no acute nasal discharge Cardiovascular- S1-S2 audible, rate and rhythm regular, no murmur Respiratory- CTAB, no wheeze or rhonchi Gastrointestinal-nontender, bowel sound+. Nondistended Musculoskeletal-no acute joint swelling or tenderness or redness# Lower extremity- no leg edema Neurological- cranial nerves intact, no acute dysarthria or dysphagia Psychiatry- denies depression or SI or HI Skin- no acute rash or purpura laboratory and microbiology Laboratory Tests 10/03/24 07:13 Test 10/03/24 07:13 Range/Units Serum Glucose 212 H 74-106 mg/dL Problem List/Assessment/Plan Problem List/Assessment/Plan # acute abdominal pain likely due to pancreatitis/gastroenteritis -serum lipase 27, -CT abdomen= Ill-defined region of increased tissue density in the liver measuring 5.1 x 4.6 cm. Gas most likely in the biliary tree however can not entirely exclude portal gas. -continue ceftriaxone 1 g IV daily -continue metronidazole 500 mg iv Q 8 H # nausea and vomiting -continue Zofran p.r.n. as prescribed #Ill-defined region of increased tissue density in the liver measuring 5.1 x 4.6 cm. Gas most likely in the biliary tree however can not entirely exclude portal gas-under evaluation -CT scan finding # leukocytosis -continue current management # increased anion gap likely due to metformin as patient was taking for diabetes mellitus # hypokalemia likely due to vomiting -replenished with a potassium supplement # diabetes mellitus type 2-HGB A1c 7.4 -continue insulin sliding scale as prescribed # hyperlipidemia -continue atorvastatin 20 mg q.h.s. #hiatal hernia -outpatient # substance abuse-marijuana, smoker -patient was counseled about the effect of substance abuse and smoking on health # transaminitis -monitor liver function test Goals of care/advance care planning; FULL CODE; discussed with the patient >15 minutes PUD prophylaxis: Pantoprazole DVT prophylaxis: Patient ambulating Plan discussed with Dr. Green, nursing staff, patient Total time spent on patient evaluation, chart review, assessment and plan, discussion discussion >30 minutes Plan discussed with: Patient Plan discussed with: Patient, Other (RN) My Orders My Orders Orders - ESTEPHANIA DE LOS SANTOS Procedure Category Date Status Time Drug Screen LAB 10/03/24 Logged 09:40 Chest Xray 1 View XY 10/03/24 Resulted 09:41 ESTEPHANIA DE LOS SANTOS Oct 03, 2024 11:19
[2024-10-03] MEDS: POTASSIUM EFFERVESENT TAB 25 MEQ PO ONE (11:21)
[2024-10-03] MEDS ORDERED: BUSP10TA31 PO (11:45)
[2024-10-03] MEDS ORDERED: ESCI1TAB36 PO (11:45)
[2024-10-03] MEDS: busPIRone HCL 10 MG TAB PO SCH (14:17)
[2024-10-03] MEDS: MAALOX PLUS or MAALOX 30 ML PO ONE (15:33)
[2024-10-03] MEDS ORDERED: ZOFR4T PO (16:04)
--- NOTE | 2024-10-03 16:11 | DVHDSRES ---
Discharge Summary Date of Admission Resident Creating Document: ESTEPHANIA DE LOS SANTOS Oct 03, 2024 at 05:00 Date of Discharge: Oct 03, 2024 Labs/Diagnostic Data: Laboratory Results Test 10/03/24 11:49 10/03/24 07:13 10/02/24 22:47 10/02/24 21:36 POC Glucose 279 mg/dl (70-106) White Blood Count 13.7 10^3/uL (4.4-10.8) Red Blood Count 4.67 10^6/uL (4.5-5.90) Hemoglobin 12.2 g/dL (13.5-17.5) Hematocrit 37.5 % (41.0-53.0) Mean Corpuscular Volume 80.3 fL (80.0-100.0) Mean Corpuscular Hemoglobin 26.2 pg (28.0-32.0) Mean Corpuscular Hemoglobin Concent 32.6 g/dL (32.0-36.0) Red Cell Distribution Width 15.5 % (11.8-14.3) Platelet Count 543 10^3/uL (140-450) Mean Platelet Volume 7.3 fL (6.9-10.8) Neutrophils (%) (Auto) 74.7 % (37.0-80.0) Lymphocytes (%) (Auto) 13.9 % (10.0-50.0) Monocytes (%) (Auto) 10.8 % (0.0-12.0) Eosinophils (%) (Auto) 0.1 % (0.0-7.0) Basophils (%) (Auto) 0.5 % (0.0-2.0) Neutrophils # (Auto) 10.2 10 ^3/uL (1.6-8.6) Lymphocytes # (Auto) 1.9 10 ^3/uL (0.4-5.4) Monocytes # (Auto) 1.5 10 ^3/uL (0-1.3) Eosinophils # (Auto) 0 10 ^3/uL (0-0.8) Basophils # (Auto) 0.1 10 ^3/uL (0-0.2) Nucleated Red Blood Cells 0.0 % Sodium Level 138 mmol/L (136-145) Potassium Level 3.1 mmol/L (3.5-5.1) Chloride Level 102 mmol/L (98-107) Carbon Dioxide Level 24 mmol/L (20-31) Anion Gap 12 (5-15) Blood Urea Nitrogen 18 mg/dL (9-23) Creatinine 0.97 mg/dL (0.700-1.30) Glomerular Filtration Rate Calc 90 mL/min (>90) BUN/Creatinine Ratio 18.6 (10.0-20.0) Serum Glucose 212 mg/dL (74-106) Hemoglobin A1c 7.4 % A1C (<5.7) Calcium Level 10.0 mg/dL (8.7-10.4) Total Bilirubin 0.7 mg/dL (0.2-1.0) Aspartate Amino Transferase (AST) 41 U/L (13-40) Alanine Aminotransferase (ALT) 15 U/L (7-40) Alkaline Phosphatase 258 U/L (46-116) Total Protein 7.5 g/dL (5.7-8.2) Albumin 4.5 g/dL (3.2-4.8) Thyroid Stimulating Hormone (TSH) 1.18 uIU/mL (0.55-4.78) Plasma/Serum Blood Alcohol < 3.0 mg/dL (<10) Troponin I High Sensitivity 5 ng/L (</=54) Lactic Acid Level 1.3 mmol/L (0.4-2.0) Magnesium Level 2.0 mg/dL (1.6-2.6) Lipase 27 U/L (12-53) Test 10/02/24 21:06 Urine Color Yellow (Yellow) Urine Clarity Clear (Clear) Urine pH 5.5 (5.0-9.0) Urine Specific [place] 1.043 (1.001-1.035) Urine Protein 1+ (Negative) Urine Ketones 4+ (Negative) Urine Blood 1+ /uL (Negative) Urine Nitrite Negative (Negative) Urine Bilirubin Negative (Negative) Urine Urobilinogen Normal mg/dL (Negative) Urine Leukocyte Esterase Negative /uL (Negative) Urine RBC 5 /hpf (0 - 3) Urine WBC 1 /hpf (0 - 3) Urine Squamous Epithelial Cells None seen /hpf (<5) Urine Bacteria None seen /hpf (None Seen) Urine Glucose 4+ mg/dL (Normal) Other Laboratory Tests 10/03/24 07:13 Brief Hx & Hospital Course: Patient is 59 years old male with past medical history of diabetes mellitus type 2, hyperlipidemia, hiatal hernia, torne meniscus of the right knee, history of right shoulder rotator cuff tear 4 times, smoker, substance abuse marijuana came with a complaint of abdominal pain. As per patient patient has been having epigastric pain for last 2 days, stabbing in nature, sudden once a day, maximum severity was 10/10, now relieved 2to 0, no aggravating or relieving factor. Patient also endorsed nausea and vomiting almost 20 3 times, dark brown fluid, no blood as per patient. Patient denied any fever, chest pain, shortness of breath, acute joint pain or swelling, dysuria, dysarthria, change in vision. Initial lab workup revealed leukocytosis with WBC 20.0 thrombocytosis with platelet 711, hypokalemia with potassium 3.1, increased anion gap 18, POC 210, HGB A1c 7.4, TSH 1.18, lactic acid is 1.3, alkaline phosphatase elevated 301, troponin I 6, lipase 27. CT abdomen [id number]-Ate-rjkaiug region of increased tissue density in the liver measuring 5.1 x 4.6 cm. Tissue density is 96 Hounsfield units and may represent acute hemorrhage. Correlate clinical history. Patient appears to be status post cholecystectomy. Gas most likely in the biliary tree however can not entirely exclude portal gas. CXR no acute disease. Anticipate negative for influenza type A and B and also for COVID-19. During hospitalization patient was treated conservatively. Patient's symptoms improved. Patient's pain subsided and nausea and vomiting subsided as well. Patient reported feeling well. Patient was counseled about effect of substance abuse on health. Patient verbalized understanding. Patient was handed a copy of the CT scan of the abdomen report to follow up with the primary care physician Dr. Seaman. Patient was discharged in a hemodynamically stable condition with the p.r.n.. Patient's meds were sent to the pharmacy electronically PMH-diabetes mellitus type 2, hyperlipidemia, hiatal hernia, torne meniscus of the right knee, history of right shoulder rotator cuff tear 4 times, smoker, substance abuse marijuana PSH- cholecystectomy Allergy- aspirin Personal History/ Social History- smoker smokes 5 cigarettes per day, ex alcoholic, use marijuana+ Patient was seen today at the bedside. Patient Cardiovascular- deny acute chest pain or shortness of breath or cough or palpitation Respiratory- denies cough or short of breath or wheezing Gastrointestinal- denies any rectal bleeding, nausea or vomiting Musculoskeletal-denies acute joint swelling or tenderness or redness Neurological- denies acute dysarthria, dysphagia, change in vision Psychiatry- denies depression or SI or HI Skin- denies acute rash or purpura General examination- awake, alert, oriented, conversant HEENT- PEERLA, no acute nasal discharge Cardiovascular- S1-S2 audible, rate and rhythm regular, no murmur Respiratory- CTAB, no wheeze or rhonchi Gastrointestinal-nontender, bowel sound+. Nondistended Musculoskeletal-no acute joint swelling or tenderness or redness# Lower extremity- no leg edema Neurological- cranial nerves intact, no acute dysarthria or dysphagia Psychiatry- denies depression or SI or HI Skin- no acute rash or purpura # acute abdominal pain likely due to pancreatitis/gastroenteritis -serum lipase 27, -CT abdomen= Ill-defined region of increased tissue density in the liver measuring 5.1 x 4.6 cm. Gas most likely in the biliary tree however can not entirely exclude portal gas. -continue ceftriaxone 1 g IV daily -continue metronidazole 500 mg iv Q 8 H # nausea and vomiting #Ill-defined region of increased tissue density in the liver measuring 5.1 x 4.6 cm. Gas most likely in the biliary tree however can not entirely exclude portal gas-under evaluation -CT scan finding # leukocytosis likely reactive # increased anion gap likely due to metformin as patient was taking for diabetes mellitus # hypokalemia likely due to vomiting -replenished with a potassium supplement # diabetes mellitus type 2 # hyperlipidemia #hiatal hernia # substance abuse-marijuana, smoker # transaminitis Operations or Procedures Signed PATIENT: BAILEY JOHNS ACCT: [id number] UNIT: [id number] : 1965 LOC: ER ROOM / BED: / AGE / SEX: 59 / M ADM STATUS: REG ER SERVICE 05 ORDERING PHYSICIAN: TIANA MEJIA DO PROCEDURE(s): ABPL - CT AB PEL WO CON-NO ORAL OR IV REASON: epig pain n/v ORDER NUMBER(s): [id number], ACCESSION NUMBER(s): [id number] Exam: CT CT AB PEL WO CON-NO ORAL OR IV History: epig pain n/v Comparison Study: None available at time of dictation. TECHNIQUE: Multidetector CT of the abdomen was performed from lung bases to pubic symphysis. Imaging was performed without IV contrast. Axial, coronal and sagittal multiplanar reformats were obtained from the axial data set by the technologist. Radiation Dose Information: CT Dose: CTDI volume is 7.82 mGy. Dose-length product is 46.72 mGy*cm FINDINGS: Evaluation of solid organs is limited due to lack of intravenous contrast use. Findings: Lung Bases: No acute or significant lung base finding. Normal heart size. No pleural or pericardial effusion. Liver: Above and lateral to the caudate lobe is an ill-defined area measuring 5.1 by 4.6 cm of increased tissue density. The tissue density is approximately 96 Hounsfield units and may represent hemorrhage. There are also small collections of gas most likely in the biliary system however can not entirely exclude portal air. Gallbladder and Biliary Tree: Appears to have been surgically removed. Spleen: Unremarkable Pancreas: The pancreas is grossly normal in appearance. Adrenal Glands: Unremarkable Kidneys: Kidneys are grossly normal without calculi or hydronephrosis. Bladder: Grossly unremarkable for degree of distention. Bowel: The stomach is grossly normal in appearance. Small bowel and colon are normal in caliber and distribution. The appendix is not visualized; however, no secondary findings of acute appendicitis identified. Ascites: Absent Lymphadenopathy: No mesenteric, retroperitoneal or periportal lymphadenopathy. Abdominal Wall and Mesentery: Unremarkable. Vasculature: The visualized abdominal aorta is normal in size and caliber. Evaluation of abdominal and pelvic vessels is limited due to lack of intravenous contrast. Pelvic Organs: Unremarkable Musculoskeletal: No aggressive focal bony lesions, acute fractures or dislocation. Soft tissues: Unremarkable IMPRESSION: 1. Ill-defined region of increased tissue density in the liver measuring 5.1 x 4.6 cm. Tissue density is 96 Hounsfield units and may represent acute hemorrhage. Correlate clinical history. 2. Patient appears to be status post cholecystectomy. 3. Gas most likely in the biliary tree however can not entirely exclude portal gas. 4. No free air or free fluid. Radiation optimization: All CT scans at this facility use at least one of these dose optimization techniques: automated exposure control mA and/or kV adjustment per patient size (includes targeted exams where dose is matched to clinical indication) or iterative reconstruction. HS:Y ATED BY: KATHLEEN RODRIGUEZ Jr., DO DICTATED DATE/TIME: 10/02/242143 SIGNED BY: KATHLEEN RODRIGUEZ Jr., SIGNED DATE/TIME: 10/02/242143 CC: DIAGNOSTIC IMAGING Diagnostic Imaging Report : [id number] Signed PATIENT: BAILEY JOHNS CACCT: [id number] UNIT: [id number] : 1965 LOC: OVERFLOW ROOM / BED: [facility] / A AGE / SEX: 59 / M ADM STATUS: ADM IN SERVICE 0 ORDERING PHYSICIAN: ESTEPHANIA DE LOS SANTOS RESIDENT PROCEDURE(s): CXR1 - CHEST XRAY 1 VIEW REASON: Rule out pneumonia ORDER NUMBER(s): [id number], ACCESSION NUMBER(s): [id number] CHEST RADIOGRAPH Indication: Rule out pneumonia Technique: Single frontal view of the chest was obtained COMPARISON: None FINDINGS: Lines and Tubes: None Lungs: Clear Pleura: No effusion. No pneumothorax. Cardiomediastinal contours: Unremarkable Bones: Unremarkable IMPRESSION: 1. No acute disease. ATED BY: JUAN BURKS MD DICTATED DATE/TIME: 10/03/241040 SIGNED BY: JUAN BURKS MD SIGNED DATE/TIME: 10/03/241040 CC: Condition at Discharge: Stable Final Diagnosis/Problems List Acute abdominal pain likely due to gastroenteritis possibly due to viral infection Nausea and vomiting likely due to gastroenteritis and also likely cannabinoids induced nausea and vomiting #Ill-defined region of increased tissue density in the liver measuring 5.1 x 4.6 cm. Gas most likely in the biliary tree however can not entirely exclude portal gas-under evaluation -CT scan finding # leukocytosis likely reactive # increased anion gap likely due to metformin as patient was taking for diabetes mellitus # hypokalemia likely due to vomiting -replenished with a potassium supplement # diabetes mellitus type 2 # hyperlipidemia #hiatal hernia # substance abuse-marijuana, smoker # transaminitis Discharge Disposition: Home Discharge Instruct/Medications Diet: Cardiac 2g Na,low cholest Activity: Light activity Follow Up/Referral: Please follow up with the primary care with a physician in [address] scan reports preop provided to the patient Patient was counseled about the effect of cannabinoids on health Medications: Antonio p.r.n. as prescribed Discharge Statement: "Patient was advised to return to the ER or call 911 if any headaches, dizziness, shortness of breath, chest pain, abdominal pain, bleeding, fevers, or worsening of medical condition. Patient was counseled about treatment plan, medications, possible side effects, patientverbalized understanding. All questions were answered to the best of my ability. This discharge took greater then 30 minutes in planning, reviewing documentation, counseling the patient, and discussing with other team members." ASSESSMENT ASSESSMENT Assessment Acute abdominal pain likely due to gastroenteritis possibly due to viral infection Nausea and vomiting likely due to gastroenteritis and also likely cannabinoids induced nausea and vomiting ESTEPHANIA DE LOS SANTOS RESIDENT Oct 03, 2024 16:11
[2024-10-03 16:53] VITALS: BP 115/73; PULSE 89; RESP 18; O2SAT 98
[2024-10-03 17:51] VITALS: TEMP 37.2
[2024-10-03] MEDS ORDERED: MAALOX PLUS or MAALOX 30 ML PO SCH (18:00)
[2024-10-03 18:10] LABS: COVID19 ANTIGEN SOFIA FIA NEGATIVE (NEGATIVE); Rapid Influenza A Negative (Negative); Rapid Influenza B Negative (Negative)
[2024-10-03] MEDS ORDERED: ATORVASTATIN 20 MG TAB PO SCH (22:00)
[2024-10-04] MEDS ORDERED: CITALOPRAM HYDROBR 20 MG TAB PO SCH (10:00)
== END 2024-10-03 18:30 | disposition home or self-care (01) | DRG 391 ==
LOC: ER 20:38 → OVERFLOW 10-03 05:00
PROVIDERS: ADMIT Nurse Practitioner Family; ATTEND Nurse Practitioner Family
DX: K52.9 Noninfective gastroenteritis and colitis, unspecified (principal); K85.90 Acute pancreatitis without necrosis or infection, unspecified; I10 Essential (primary) hypertension; F17.210 Nicotine dependence, cigarettes, uncomplicated; F12.10 Cannabis abuse, uncomplicated; E78.5 Hyperlipidemia, unspecified; K44.9 Diaphragmatic hernia without obstruction or gangrene; D75.839 Thrombocytosis, unspecified; D72.829 Elevated white blood cell count, unspecified; Z20.822 Contact with and (suspected) exposure to COVID-19; R74.01 Elevation of levels of liver transaminase levels; E87.6 Hypokalemia; E11.9 Type 2 diabetes mellitus without complications; Z90.49 Acquired absence of other specified parts of digestive tract; Z88.6 Allergy status to analgesic agent
CPT/HCPCS: 36415; 71045; 74176; 80053; 80320; 81001; 82962; 83036; 83605; 83690; 83735; 84443; 84484; 85025; 87040; 87426; 87804; 96361; 96365; 96367; 96375; 96376; G0378; J1815; J2003; J2405; J2470; J2543; J3490

== ENCOUNTER 2024-10-18 16:18 | Inpatient (IN) | payer BC, MEDICAID ==
[~2024-10-18] VITALS: Ht 180.3 cm; Wt 167.8 kg
[~2024-10-18 16:18] MED LIST changes: +BUSP10TA31 PO; +ESCI1TAB36 PO; +ZOFR4T PO
--- NOTE | 2024-10-18 16:42 | ED.PDOC ---
GI ASSESSMENT HPI Comments 59 y.o male with PMHx of a hiatal hernia and DM presents to the ED for a chief complaint of RUQ pain associated with swelling, chills, sweats, and urine frequency that started one month ago. Patient describes pain as sharp, constant, non radiating, and rating a 8/10 on the pain scale. Patient states he was seen at this hospital 2 weeks ago for same complaint and diagnosed with " gastroenteritis possibly due to viral infection" and since has not recovered. Patient denies any nausea, vomiting, fever, dysuria, hematuria, back pain. Time Seen by MD: 16:34 Reviewed Notes: Nurses Notes, Medications, Allergies Allergies: Coded Allergies: Aspirin (Verified Allergy, Unknown, 10/02/24) Home Meds Active Scripts Ondansetron Odt 4MG Tab (ZOFRAN PO) 4 Mg Tb, 4 MG PO Q4HP PRN, #15 TAB ODT TAB-DISSOLVE IN MOUTH, THEN SWALLOW Prov:MARIANO VITALE MD 10/03/24 Reported Medications Escitalopram Oxalate (ESCITALOPRAM OXALATE) 10 Mg Tab, 1 TAB PO DAILY 10/03/24 Buspirone HCl (Buspirone HCl) 10 Mg Tab, 1 TAB PO TID 10/03/24 Metformin Hydrochloride (Metformin Hcl) 500 Mg Tab, BID 02/05/13 Information Source: Patient Mode of Arrival: Ambulatory Timing: Months (1) Duration: Since onset Quality: Sharp Vomitus: None Stool: Normal Severity: Moderate Recent: None Recent Hx of: Other Pain Location: RUQ Modifying Factors: Nothing Associated sign and symptoms: Abdominal Pain Past Medical History PAST MEDICAL HISTORY: DM, High Lipids, HTN Past Medical History (Other): hernia Surgical History: Cholecystectomy Family History Family History: Unknown Social History Smoker: Cigarettes Alcohol: Occasionally Drugs: Marijuana Lives In: Home Constitutional: reports: chills, sweats; denies: diaphoresis, fatigue, fever, malaise, weakness, others EENTM: denies: blurred vision, double vision, ear bleeding, ear discharge, ear drainage, ear pain, ear ringing, eye pain, eye redness, hearing loss, mouth pain, mouth swelling, nasal discharge, nose bleeding, nose congestion, nose pain, photophobia, tearing, throat pain, throat swelling, voice changes, others Respiratory: denies: cough, hemoptysis, orthopnea, SOB at rest, shortness of breath, SOB with excertion, stridor, wheezing, others Cardiovascular: denies: chest pain, dizzy spells, diaphoresis, Dyspnea on exertion, edema, irregular heart beat, left arm pain, lightheadedness, palpitations, PND, syncope, others Gastrointestinal: reports: abdominal pain; denies: abdomen distended, blood streaked bowels, constipated, diarrhea, dysphagia, difficulty swallowing, hematemesis, melena, nausea, poor appetite, poor fluid intake, rectal bleeding, rectal pain, vomiting, others Genitourinary: reports: frequency; denies: burning, dysuria, flank pain, hematuria, incontinence, penile discharge, penile sore, pain, testicle pain, testicle swelling, urgency, others Neurological: denies: dizziness, fainting, headache, left sided numbness, left sided weakness, numbness, paresthesia, pre-existing deficit, right sided numbness, right sided weakness, seizure, speech problems, tingling, tremors, we akness, others Musculoskeletal: denies: back pain, gout, joint pain, joint swelling, muscle pain, muscle stiffness, neck pain, others Integumetry: denies: bruises, change in color, change in hair/nails, dryness, laceration, lesions, lumps, rash, wounds, others Allergic/Immunocompromised: denies: Difficulty Healing, Frequent Infections, Hives, Itching, others Hematologic/Lymphatic: denies: anemia, blood clots, easy bleeding, easy bruising, swollen glands, others Endocrine: denies: excessive hunger, excessive sweating, excessive thirst, excessive urination, flushing, intolerance to cold, intolerance to heat, unexplained weight gain, unexplained weight loss, others Psychiatric: denies: anxiety, bipolar disorder, depression, hopeless, panic disorder, schizophrenia, sleepless, suicidal, others All Other Systems: Reviewed and Negative Physical Exam General Appearance: Moderate Distress HEENT: Normal ENT Inspection, Pharynx Normal, TMs Normal Neck: Full Range of Motion, Non-Tender, Normal, Normal Inspection Respiratory: Chest Non-Tender, Lungs Clear, No Accessory Muscle Use, No Respiratory Distress, Normal Breath Sounds Cardiovascular: No Edema, No JVD, No Murmur, No Gallop, Normal Peripheral Pulses, Regular Rate/Rhythm Breast Exam: Deferred Gastrointestinal: No Organomegaly, No Pulsatile Mass, Normal Bowel Sounds, RLQ, RUQ, Soft, Tenderness Genitalia: Deferred Pelvic: Deferred Rectal: Deferred Extremities: No calf tenderness, Normal capillary refill, Normal inspection, Normal range of motion, Non-tender, No pedal edema Musculoskeletal : Apperance: Normal Neurologic: Alert, 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 Was a procedure done?: No GI differential Dx Differential Diagnosis: Esophagitis, Gastroenteritis, Inflammatory BD, UTI, Dehydration, Electrolyte Imbalance, Food Poisoning, Viral X-Ray, Labs, Meds, VS Vital Signs Date Time Temp Pulse Resp B/P (MAP) Pulse Ox O2 Delivery O2 Flow Rate FiO2 10/18/24 21:15 99 16 141/74 10/18/24 20:25 Room Air* 0 21 10/18/24 16:35 98.1 102 18 151/89 (109) 97 Lab Test 10/18/24 17:00 10/18/24 16:37 Range/Units White Blood Count 15.6 H 4.4-10.8 10^3/uL Red Blood Count 4.49 L 4.5-5.90 10^6/uL Hemoglobin 11.7 L 13.5-17.5 g/dL Hematocrit 35.3 L 41.0-53.0 % Mean Corpuscular Volume 78.7 L 80.0-100.0 fL Mean Corpuscular Hemoglobin 26.0 L 28.0-32.0 pg Mean Corpuscular Hemoglobin Concent 33.1 32.0-36.0 g/dL Red Cell Distribution Width 15.8 H 11.8-14.3 % Platelet Count 605 H 140-450 10^3/uL Mean Platelet Volume 7.2 6.9-10.8 fL Neutrophils (%) (Auto) 79.3 37.0-80.0 % Lymphocytes (%) (Auto) 10.9 10.0-50.0 % Monocytes (%) (Auto) 9.1 0.0-12.0 % Eosinophils (%) (Auto) 0.2 0.0-7.0 % Basophils (%) (Auto) 0.5 0.0-2.0 % Neutrophils # (Auto) 12.4 H 1.6-8.6 10 ^3/uL Lymphocytes # (Auto) 1.7 0.4-5.4 10 ^3/uL Monocytes # (Auto) 1.4 H 0-1.3 10 ^3/uL Eosinophils # (Auto) 0 0-0.8 10 ^3/uL Basophils # (Auto) 0.1 0-0.2 10 ^3/uL Nucleated Red Blood Cells 0.0 % Sodium Level 135 L 136-145 mmol/L Potassium Level 3.7 3.5-5.1 mmol/L Chloride Level 102 98-107 mmol/L Carbon Dioxide Level 25 20-31 mmol/L Anion Gap 8 5-15 Blood Urea Nitrogen 12 9-23 mg/dL Creatinine 0.75 0.700-1.30 mg/dL Glomerular Filtration Rate Calc 105 >90 mL/min BUN/Creatinine Ratio 16.0 10.0-20.0 Serum Glucose 206 H 74-106 mg/dL Calcium Level 10.3 8.7-10.4 mg/dL Total Bilirubin 1.0 0.2-1.0 mg/dL Aspartate Amino Transferase (AST) 55 H 13-40 U/L Alanine Aminotransferase (ALT) 25 7-40 U/L Alkaline Phosphatase 384 H 46-116 U/L Total Protein 7.7 5.7-8.2 g/dL Albumin 4.6 3.2-4.8 g/dL Urine Color Yellow Yellow Urine Clarity Clear Clear Urine pH 6.0 5.0-9.0 Urine Specific [place] 1.011 1.001-1.035 Urine Protein 1+ H Negative Urine Ketones Negative Negative Urine Blood Negative Negative /uL Urine Nitrite Negative Negative Urine Bilirubin Negative Negative Urine Urobilinogen 2 H Negative mg/dL Urine Leukocyte Esterase Negative Negative /uL Urine RBC 3 0 - 3 /hpf Urine WBC 4 0 - 3 /hpf Urine Squamous Epithelial Cells None seen <5 /hpf Urine Bacteria None seen None Seen /hpf Urine Glucose 1+ H Normal mg/dL Current Medications Medications (Trade) Dose Ordered Sig/Luciana Route Start Time Stop Time Status Last Admin Ondansetron HCl (Zofran) 4 mg ONCE ONCE IV 10/18/24 16:45 10/18/24 16:46 DC 10/18/24 21:15 Morphine Sulfate 4 mg ONCE ONCE IV 10/18/24 16:45 10/18/24 16:46 DC 10/18/24 21:15 Pantoprazole Sodium (Protonix) 40 mg ONCE ONCE IV 10/18/24 16:45 10/18/24 16:46 DC 10/18/24 21:15 CT scan of the abdomen and pelvis shows: IMPRESSION: 1. Concentric wall thickening of the descending colon and sigmoid colon may reflect mild infectious / inflammatory colitis. 2. Multiple hypodense masses are seen throughout the liver, largest measuring up to 7.1 cm in the right anterior lobe. These findings are highly suspicious for malignancy. Recommend triple phase abdominal CT for further characterization. 3. Left-sided perinephric stranding may reflect pyelonephritis. Recommend correlation with urinalysis. No nephrolithiasis or hydronephrosis Radiation optimization: All CT scans at this facility use at least one of these dose optimization techniques: automated exposure control mA and/or kV adjustment per patient size (includes targeted exams where dose is matched to clinical indication) or iterative reconstruction. The patient's CBC shows an elevated white blood cell count of 15.6 The rest of the CBC is within normal limits except for anemia with a hemoglobin of 11.7 and hematocrit of 35.3 The urine test is negative at this time The patient was given Protonix 40 mg IV push The patient was also given morphine 4 mg IV push for the pain and Zofran 4 mg IV push At this time, the patient was being admitted to the hospitalist. Images Reviewed?: Images reviewed and evaluated by me Time of 1ST Reevaluation: 16:42 Reevaluation 1ST: Unchanged Patient Education/Counseling: Diagnosis, Treatment, Prognosis Family Education/Counseling: No Family Present Departure 1 Departure Time of Disposition: 21:34 Impression: Primary Impression: Intractable abdominal pain Additional Impressions: Suspected malignant neoplasm Elevated liver enzymes Disposition: 09 ADMITTED INPATIENT Admit to: Med Surg Condition: Fair Critical Care Note Critical Care Time?: No Stability Stability form required: Yes Unstable for transfer: ED Physician Assesment (Clinical assesment) I personally scribed for CHRISTOPHER COLORADO MD ([email or web address]) on 10/18/24 at 16:42. Electronically submitted by Daniela Flores ([facility]). CHRISTOPHER COLORADO MD Oct 18, 2024 16:42
[2024-10-18 17:01] LABS: Urine Bacteria None Seen /hpf (None Seen)
[2024-10-18 17:14] LABS: Urine Blood Negative /uL (Negative); Urine Clarity Clear (Clear); Urine Color Yellow (Yellow); Urine Protein, UAD 1+ (Negative); Urine Specific Gravity 1.011 (1.001-1.035); Urine Squamous Epithelial Cell None Seen /hpf (<5); Urine Urobilinogen 2 mg/dL (Negative); Urine WBC 4 /hpf (0 - 3)
[2024-10-18 17:17] LABS: Basophils # (auto) 0.1 10 ^3/uL (0-0.2); Basophils % (auto) 0.5 % (0.0-2.0); Eosinophils # (auto) 0 10 ^3/uL (0-0.8); Eosinophils % (auto) 0.2 % (0.0-7.0); Hematocrit 35.3 % (41.0-53.0); Hemoglobin 11.7 g/dL (13.5-17.5); Lymphocytes # (auto) 1.7 10 ^3/uL (0.4-5.4); Lymphocytes % (auto) 10.9 % (10.0-50.0); Mean Corpuscular Hgb Conc. 33.1 g/dL (32.0-36.0); Mean Corpuscular Volume 78.7 fL (80.0-100.0); Monocytes # (auto) 1.4 10 ^3/uL (0-1.3); Monocytes % (auto) 9.1 % (0.0-12.0); Neutrophils # (auto) 12.4 10 ^3/uL (1.6-8.6); Neutrophils % (auto) 79.3 % (37.0-80.0); Platelet Count (auto) 605 10^3/uL (140-450); Red Blood Cells 4.49 10^6/uL (4.5-5.90); Red Cell Distribution Width 15.8 % (11.8-14.3); White Blood Cell 15.6 10^3/uL (4.4-10.8)
[2024-10-18 17:42] LABS: Alanine Aminotransferase 25 U/L (7-40); Albumin 4.6 g/dL (3.2-4.8); Anion Gap 8 (5-15); Blood Urea Nitrogen 12 mg/dL (9-23); Calcium 10.3 mg/dL (8.7-10.4); Carbon Dioxide 25 mmol/L (20-31); Chloride 102 mmol/L (98-107); Potassium 3.7 mmol/L (3.5-5.1)
[2024-10-18 17:43] LABS: Total Protein 7.7 g/dL (5.7-8.2)
[2024-10-18 17:47] LABS: Alkaline Phosphatase 384 U/L (46-116); Aspartate Aminotransferase 55 U/L (13-40); Glucose 206 mg/dL (74-106); Sodium 135 mmol/L (136-145)
[2024-10-18] MEDS: SODIUM CHLORIDE 0.9% 500 ML IVB ONE (20:20)
[2024-10-18] MEDS: IOHEXOL 300 MG/ML 100ML BOTTLE IJ ONE (20:30)
[2024-10-18] MEDS: PANTOPRAZOLE 40 MG/10 ML VIAL INJ IV ONE (21:15)
[2024-10-18] MEDS: ONDANSETRON HCL 4 MG/2 ML VIAL IV ONE (21:15)
[2024-10-18] MEDS: MORPHINE SULFATE 4 MG/ML SYR/VIAL IV ONE (21:15)
--- NOTE | 2024-10-18 21:23 | DVH ---
Exam: CT CT AB PEL WITH IV CON ONLY History: pain COMPARISON: CT abdomen pelvis dated October 02, 2024. Technique: Multidetector spiral CT of the abdomen and pelvis was performed from lung bases to pubic s ymphysis. Intravenous contrast was administered during this examination. Portal venous imaging was obtained. Axial, coronal and sagittal multiplanar reformats were performed by the technologist on a separate workstation. Radiation Dose : 1. Abdomen/Pelvis: CTDIvol 11 mGy, DLP 625.04 mGy*cm. CONTRAST: Type of contrast: Omnipaque 300 Contrast injected: 100 ml Findings: Lung Bases: No acute or significant lung base finding. Normal heart size. No pleural or pericardial effusion. Liver: Multiple hypodense masses are seen throughout the liver, the largest conglomerate is located i n the right anterior lobe and measures up to 7.1 cm Gallbladder and Biliary Tree: Status post cholecystectomy. Spleen: Unremarkable Pancreas: The pancreas is normal in appearance without focal lesions or abnormal enhancement. Adrenal Glands: Unremarkable Kidneys: No nephrolithiasis or hydronephrosis. Left-sided perinephric fat stranding may reflect py elonephritis. Bladder: Unremarkable Bowel: The stomach is grossly normal in appearance. Concentric wall thickening of the descending colo n and sigmoid colon may reflect mild infectious / inflammatory colitis. Normal appendix is visualize d in the right lower quadrant without findings of appendicitis. Ascites: Absent Lymphadenopathy: No mesenteric, retroperitoneal or periportal lymphadenopathy. Abdominal Wall and Mesentery: Unremarkable. Vasculature: The visualized abdominal aorta is normal in size and caliber. Abdominal and pelvic vess els demonstrate normal enhancement. Pelvic Organs: Unremarkable Musculoskeletal: No aggressive focal bony lesions, acute fractures or dislocation. IMPRESSION: 1. Concentric wall thickening of the descending colon and sigmoid colon may reflect mild infectious / inflammatory colitis. 2. Multiple hypodense masses are seen throughout the liver, largest measuring up to 7.1 cm in the rig ht anterior lobe. These findings are highly suspicious for malignancy. Recommend triple phase abdomi nal CT for further characterization. 3. Left-sided perinephric stranding may reflect pyelonephritis. Recommend correlation with urinalysis . No nephrolithiasis or hydronephrosis Radiation optimization: All CT scans at this facility use at least one of these dose optimization kristin hniques: automated exposure control mA and/or kV adjustment per patient size (includes targeted exam s where dose is matched to clinical indication) or iterative reconstruction.
--- NOTE | 2024-10-18 22:45 | DVHHPRES ---
History of Present Illness Resident Creating Document: FELICITAS CASPER RESIDENT History of Present Illness This is a 59-year-old male with past medical history of type 2 diabetes mellitus, hiatal hernia, status post cholecystectomy presented to the ED with a chief complaint of right upper quadrant pain with with chills, sweating and fatigue for 1 month prior to this admission. According to the patient the abdominal pain is sharp, constant, 10/10 aggravated with deep breathing, without any relieving factor associated with chills, sweating, and also urinary frequency. The patient also mentioned that he was seen at this hospital 2 weeks ago and was treated as a case of possible viral gastroenteritis since his problem has not resolved never had any colonoscopy before. The patient denies fever, chest pain, dizziness, diaphoresis, nausea, vomiting, blood in stool, dysuria, weight loss or any change in bowel and bladder habit. PCP: Dr. Kelley Past Medical History Type 2 diabetes mellitus, hiatus hernia Past Surgical History Cholecystectomy Past Social History Lives with family Smokes 10 to 12 cigarettes/day, marijuana, occasional drinker and never tried any other drugs. Review of Systems Constitutional: Yes: Chills, Sweats, Weakness; No: Fever, Malaise, Other Eyes: No: Pain, Vision change, Conjunctivae inflammation, Eyelid inflammation, Other, Redness ENT: No: Ear pain, Ear discharge, Nose pain, Nose discharge, Nose congestion, Mouth pain, Mouth swelling, Throat pain, Throat swelling, Other Respiratory: No: Cough, Dry, Shortness of breath, SOB with excertion, Wheezing, Hemoptysis, Pleuritic Pain, Sputum, Wheezing, Other Cardiovascular: No: Chest Pain, Palpitations, Orthopnea, Paroxysmal Noc. Dyspnea, Edema, Lt Headedness, Other Gastrointestinal: Abdominal Pain; No: Nausea, Vomiting, Diarrhea, Constipation, Melena, Hematochezia, Other Genitourinary: No Dysuria, No Frequency, No Incontinence, No Hematuria, No Retention, No Other Musculoskeletal: No: other, neck pain, shoulder pain, arm pain, back pain, hand pain, leg pain, foot pain Skin: No: Rash, Lesions, Jaundice, Bruising, Other Neurological: No: Weakness, Numbness, Incoordination, Change in speech, Confusion, Seizures, Other Allergies: Coded Allergies: Aspirin (Verified Allergy, Unknown, 10/02/24) Exam Vital Signs Vital Signs Date Time Temp Pulse Resp B/P (MAP) Pulse Ox O2 Delivery O2 Flow Rate FiO2 10/18/24 21:15 99 16 141/74 10/18/24 20:25 Room Air* 0 21 10/18/24 16:35 98.1 97 Exam Physical examination: General Appearance: Alert, Oriented X3, Cooperative, No acute distress HEENT: Atraumatic, PERRLA, EOMI, Mucous membrane moist/pink Respiratory: Clear to auscultation, Normal air movement Cardiovascular: Regular rate, Normal S1, Normal S2, No murmurs, no chest wall tenderness Abdominal: Tenderness in the rt subcostal region, Normal bowel sounds, Soft, no hepatospleenomegaly. Extremities: No clubbing, No cyanosis, No edema, Normal pulses, No tenderness/swelling Skin: No rashes, No breakdown, No significant lesion Neuro: Normal gait, Normal speech, Strength at 5/5 X4 ext, Normal tone, Sensation intact, grossly intact cranial nerves. Psych/Mental Status: Mental status NL, Mood NL Labs/Xrays Labs Test 10/18/24 17:00 10/18/24 16:37 Range/Units White Blood Count 15.6 H 4.4-10.8 10^3/uL Red Blood Count 4.49 L 4.5-5.90 10^6/uL Hemoglobin 11.7 L 13.5-17.5 g/dL Hematocrit 35.3 L 41.0-53.0 % Mean Corpuscular Volume 78.7 L 80.0-100.0 fL Mean Corpuscular Hemoglobin 26.0 L 28.0-32.0 pg Mean Corpuscular Hemoglobin Concent 33.1 32.0-36.0 g/dL Red Cell Distribution Width 15.8 H 11.8-14.3 % Platelet Count 605 H 140-450 10^3/uL Mean Platelet Volume 7.2 6.9-10.8 fL Neutrophils (%) (Auto) 79.3 37.0-80.0 % Lymphocytes (%) (Auto) 10.9 10.0-50.0 % Monocytes (%) (Auto) 9.1 0.0-12.0 % Eosinophils (%) (Auto) 0.2 0.0-7.0 % Basophils (%) (Auto) 0.5 0.0-2.0 % Neutrophils # (Auto) 12.4 H 1.6-8.6 10 ^3/uL Lymphocytes # (Auto) 1.7 0.4-5.4 10 ^3/uL Monocytes # (Auto) 1.4 H 0-1.3 10 ^3/uL Eosinophils # (Auto) 0 0-0.8 10 ^3/uL Basophils # (Auto) 0.1 0-0.2 10 ^3/uL Nucleated Red Blood Cells 0.0 % Sodium Level 135 L 136-145 mmol/L Potassium Level 3.7 3.5-5.1 mmol/L Chloride Level 102 98-107 mmol/L Carbon Dioxide Level 25 20-31 mmol/L Anion Gap 8 5-15 Blood Urea Nitrogen 12 9-23 mg/dL Creatinine 0.75 0.700-1.30 mg/dL Glomerular Filtration Rate Calc 105 >90 mL/min BUN/Creatinine Ratio 16.0 10.0-20.0 Serum Glucose 206 H 74-106 mg/dL Calcium Level 10.3 8.7-10.4 mg/dL Total Bilirubin 1.0 0.2-1.0 mg/dL Aspartate Amino Transferase (AST) 55 H 13-40 U/L Alanine Aminotransferase (ALT) 25 7-40 U/L Alkaline Phosphatase 384 H 46-116 U/L Total Protein 7.7 5.7-8.2 g/dL Albumin 4.6 3.2-4.8 g/dL Urine Color Yellow Yellow Urine Clarity Clear Clear Urine pH 6.0 5.0-9.0 Urine Specific [place] 1.011 1.001-1.035 Urine Protein 1+ H Negative Urine Ketones Negative Negative Urine Blood Negative Negative /uL Urine Nitrite Negative Negative Urine Bilirubin Negative Negative Urine Urobilinogen 2 H Negative mg/dL Urine Leukocyte Esterase Negative Negative /uL Urine RBC 3 0 - 3 /hpf Urine WBC 4 0 - 3 /hpf Urine Squamous Epithelial Cells None seen <5 /hpf Urine Bacteria None seen None Seen /hpf Urine Glucose 1+ H Normal mg/dL Assessment/Plan Assessment/Plan Assessment and plan: # Right subcostal pain, chills and sweating likely secondary to 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 - LFT showed elevated ALP, ALT and normal AST - Ordered hepatitis panel, AFP, chest xray, coagulation studies. - Clear liquid diet - IV normal saline at 75 ml/hr - IV morphine 2mg Q4 p.r.n. - IV ondansetron 4 mg Q 8 p.r.n. # Possible Colonic malignancy - CT abdomen pelvis demonstrated Concentric wall thickening of the descending colon and sigmoid colon may reflect mild infectious / inflammatory colitis - CEA is 2931.49 - IV ceftriaxone 1 g daily and IV metronidazole 500 mg t.i.d. - Ordered [id number] - Consulted GI for possible colonoscopy - Consulted Surgery # Type 2 diabetes mellitus, HbA1C 7.4% on 10/03/24 - Moderate sliding scale of insulin # PUD prophylaxis - Protonix 40 mg po daily. # DVT prophylaxis - Not recommended as patient is mobile. Goal of care discussed with the patient for more than 20 minutes full code Plan discussed with Dr. De Dios Plan discussed with: Patient, Other Date of Service: Oct 18, 2024 Billing Provider: ROMAN DE DIOS MD Common Visit Codes: [id number] INP/OBS CARE (HIGH) FELICITAS CASPER RESIDENT Oct 18, 2024 22:45 ROMAN DE DIOS MD Oct 19, 2024 18:53
[2024-10-18] MEDS ORDERED: DEXTROSE (50%) 50ML SYRG IV PRN (23:00)
[2024-10-19 05:38] LABS: INR 1.08 (0.9-1.15); Partial Thromboplastin Time 35.3 SEC (24.5-34.5); Prothrombin Time 11.4 sec (9.3-11.8)
[2024-10-19] MEDS ORDERED: ONDANSETRON HCL 4 MG/2 ML VIAL IV SCH (06:00)
[2024-10-19] MEDS: metroNIDAZOLE 500MG/100ML 100 ML IV SCH (06:00)
--- NOTE | 2024-10-19 06:16 | DVH ---
CHEST RADIOGRAPH Indication: chest pain Technique: Single frontal view of the chest was obtained Comparison: XY CHEST XRAY 1 VIEW on DOS: 10/03/24 FINDINGS: Lines and Tubes: None Lungs: No focal consolidation. Pleura: No effusion. No pneumothorax. Cardiomediastinal contours: Unremarkable Bones: No acute osseous abnormality. IMPRESSION: 1. No acute cardiopulmonary disease.
[2024-10-19] MEDS: cefTRIAXone 1GM/50ML D5W 50 ML IV SCH (06:28)
[2024-10-19] MEDS: ONDANSETRON HCL 4 MG/2 ML VIAL IV SCH (06:31)
[2024-10-19] MEDS: PANTOPRAZOLE 40 MG TAB PO SCH (06:36)
[2024-10-19] MEDS: MORPHINE SULFATE INJ 2 MG/ml SYRG IV SCH (06:36)
[2024-10-19] MEDS: SODIUM CHLORIDE 0.9% 1,000 ML IV SCH (06:55)
[2024-10-19 07:30] VITALS: PULSE 70; RESP 17; O2SAT 96
[2024-10-19] MEDS: ACCU-CHEK COMFORT CURVE STRIP VI SCH (07:30)
[2024-10-19] MEDS: InsuLIN REG 1unit/0.01ml Soln (100units/ml) SC SCH ×2 (07:30→22:00)
[2024-10-19 08:35] LABS: Benzodiazephine Screen, Urine Neg (NEGATIVE)
[2024-10-19 08:36] LABS: Opiate Scree,Urine Pos (NEGATIVE)
[2024-10-19 08:44] LABS: Amphetamine Screen, Urine Neg (NEGATIVE); Barbiturate Scree,Urine Neg (NEGATIVE); Cannabinoid Screen, Urine Pos (NEGATIVE); Cocaine Screen, Urine Neg (NEGATIVE); Phencyclidine Screen, Urine Neg (NEGATIVE)
--- NOTE | 2024-10-19 13:13 | DVHPNRES ---
Progress Note Date Seen: Oct 19, 2024 Resident Creating Document: KAMRAN MOTT RESIDENT Medical Necessity Reason Pt with a Central, PICC or Fol: No Subjective Review of Systems Patient is a 59-year-old male with past medical history of type 2 diabetes, dyslipidemia, hiatal hernia, who came due to abdominal pain. According to the patient for the last 2 weeks he has been experiencing right subcostal pain for which he was hospitalized 2 weeks ago as well. Patient notes that the pain is continuous, 8/10 at onset and 5/10 currently, stabbing in nature and worsening with breathing and movement. Patient notes he has been unable to sleep due to the pain. Patient notes that he is unable to see his PCP and notes that he has never had a colonoscopy. Patient is also status post cholecystectomy. CT abdomen pelvis showed concentric wall thickening of descending and sigmoid colon. Multiple hypodense masses throughout liver with the largest 1 measuring 7.1 cm. Left-sided perinephric stranding. Past surgical history: Cholecystectomy Home medications: Buspirone, escitalopram, metformin, Jardiance, atorvastatin, pioglitazone, hydroxyzine Past Hospitalization: 10/03/2024 for abdominal pain, vomiting, leukocytosis Social & Personal history: Patient lives with and son. Was recently laid off. Smokes 10 cigarettes per day for 40 years. Uses marijuana often. Denies using any other drugs. Allergies: Aspirin (swelling) Patient seen and examined at bedside. Patient is alert and oriented to time, place person and responding to all questions. General: Fever, fatigue, chills. Intentional weight loss of 25-30 lb over the last 6 months Eyes: No Pain, No Vision change, No Conjunctivae inflammation, No Eyelid inflammation, No Other, No Redness ENT: No Ear pain, No Ear discharge, No Nose pain, No Nose discharge, No Nose congestion, No Mouth pain, No Mouth swelling, No Throat pain, No Throat swelling, No Other Cardiovascular: No Chest Pain, No Palpitations, No Orthopnea, No Paroxysmal No Dyspnea, No Edema, No Lt Headedness, No Other Respiratory: No Cough, No Dry, No Shortness of breath, No SOB with exertion, No Wheezing, No Hemoptysis, No Pleuritic Pain, No Sputum, No Other Gastrointestinal: No Nausea, No Vomiting, No Abdominal Pain, No Diarrhea, No Constipation, No Melena, No Hematochezia, No Other Genitourinary: No Dysuria, Frequency, No Incontinence, No Hematuria, No Retention, No Other Musculoskeletal: No other, No neck pain, No shoulder pain, No arm pain, No back pain, No hand pain, No leg pain, No foot pain Skin: No Rash, No Lesions, No Jaundice, No Bruising, No Other Psychiatric: Reports feeling depressed and anxiety. Denies having any suicidal ideation or intent. Objective vital signs Vital Sign Date Time Temp Pulse Resp B/P (MAP) Pulse Ox O2 Delivery O2 Flow Rate FiO2 10/19/24 10:00 70 17 103/59 10/19/24 08:32 97.8 96 97.8 10/19/24 07:30 Room Air* 0 21 medications Current Medications Medications Dose Ordered Sig/Luciana Route Start Time Stop Time Status Last Admin Dose Admin Sodium Chloride 1,000 ml @ 75 mls/hr [id number] IV 10/18/24 23:00 Ceftriaxone Sodium 50 ml @ 100 mls/hr DAILY@2100 IV 10/18/24 23:30 Metronidazole 100 ml @ 100 mls/hr Q8HR IV 10/18/24 23:30 10/19/24 09:02 100 MLS/HR Morphine Sulfate 2 mg Q4HPRN IV 10/19/24 02:00 10/19/24 06:36 2 MG Diagnostic Test (Pha) 1 strip ACHS 10/19/24 07:00 10/19/24 07:30 1 STRIP Insulin Human Regular HS SC 10/19/24 22:00 Insulin Human Regular AC SC 10/19/24 07:00 10/19/24 07:30 6 UNITS Dextrose 50 ml UD PRN IV 10/18/24 23:00 Ondansetron HCl 4 mg Q8HPRN IV 10/19/24 04:00 10/19/24 06:31 4 MG Pantoprazole Sodium 40 mg DAILY@0600 PO 10/19/24 06:00 10/19/24 06:36 40 MG Examination General Appearance: Cooperative. Temporal wasting noted Head Exam: Normal inspection Neck Exam: Normal inspection. Non-tender. Normal alignment Pulmonary/Respiratory: Chest non-tender. Clear bilateral breath sounds, no crackles, no wheezing. Cardiovascular/Chest: Regular rate and rhythm. No murmurs. No JVD. Peripheral Pulses: 2+ Radial (R). 2+ Radial (L). 2+ Pedal (R). 2+ Pedal (L) Abdominal Exam: Normal bowel sounds. Soft. Right upper quadrant tenderness to palpation, no visible veins, Nontender. No hepatospenomegaly. No masses Ankle Exam: Negative ankle edema Lower extremities: Negative lower extremity edema Neuro/Mental Status: A&O x4. Coherent. Thoughts/Psych: Normal thought pattern. Appropriate mood and affect. Good judgement and insight Skin Exam: Normal inspection. Normal color. Warm. Dry. Mild yellowing of the sclera laboratory and microbiology Laboratory Tests 10/18/24 17:00 Test 10/18/24 17:00 Range/Units Serum Glucose 206 H 74-106 mg/dL Labs and/or images reviewed: Labs reviewed by me, Image(s) reviewed by me Problem List/Assessment/Plan Problem List/Assessment/Plan Acute intractable abdominal pain: Right subcostal pain with intractable nausea and vomiting Colitis, infectious versus inflammatory Multiple hypodense masses throughout liver, possible metastasis secondary to malignancy vs primary malignancy Mild transaminitis likely due to above Thrombocytosis - CT abdomen pelvis: Concentric wall thickening of the descending colon and sigmoid colon may reflect mild infectious/inflammatory colitis. Multiple hypodense masses are seen throughout the liver, largest measuring up to 7.1 cm in the right anterior lobe. Findings are highly suspicious for malignancy, recommend triple phase abdominal CT for further characterization. Left-sided perinephric stranding may reflect pyelonephritis. Recommend correlation with UA. - CEA 2931.49 - ordered a triple phase CT chest, abdomen, pelvis - head CT with contrast - GI on board - IV NS at 75 cc/hour - IV ceftriaxone, IV metronidazole - IV Zofran Type 2 diabetes, Hb A1c 7.4 - moderate sliding scale insulin History of hiatal hernia - Protonix 40 mg p.o. daily Goals of care: Full code, discussed for >16 minutes on 10/19/2024 Plan discussed with patient and patient's at bedside for >20 minutes Plan discussed with Dr. Berg Plan discussed with: Patient, Spouse, Other (RN) Date of Service: Oct 19, 2024 Billing Provider: ANDREW BERG MD Common Visit Codes: [id number] INP/OBS CARE(HIGH) KAMRAN MOTT Oct 19, 2024 13:13 ANDREW BERG MD Oct 19, 2024 20:03
[2024-10-19 14:28] VITALS: BP 130/65; PULSE 87; RESP 20; TEMP 98.3; O2SAT 100
--- NOTE | 2024-10-19 14:34 | DVHINCON2 ---
Date of service: Oct 19, 2024 Allergies: Coded Allergies: Aspirin (Verified Allergy, Unknown, 10/02/24) Home Meds Active Scripts Ondansetron Odt 4MG Tab (ZOFRAN PO) 4 Mg Tb, 4 MG PO Q4HP PRN, #15 TAB ODT TAB-DISSOLVE IN MOUTH, THEN SWALLOW Prov:MARIANO VITALE MD 10/03/24 Reported Medications Escitalopram Oxalate (ESCITALOPRAM OXALATE) 10 Mg Tab, 1 TAB PO DAILY 10/03/24 Buspirone HCl (Buspirone HCl) 10 Mg Tab, 1 TAB PO TID 10/03/24 Metformin Hydrochloride (Metformin Hcl) 500 Mg Tab, BID 02/05/13 Current Medications Current Medications Medications (Trade) Dose Ordered Sig/Luciana Route PRN Reason Start Time Stop Time Status Last Admin Sodium Chloride 1,000 ml @ 75 mls/hr [id number] IV 10/18/24 23:00 Ceftriaxone Sodium 50 ml @ 100 mls/hr DAILY@2100 IV 10/18/24 23:30 Metronidazole 100 ml @ 100 mls/hr Q8HR IV 10/18/24 23:30 10/19/24 09:02 Morphine Sulfate 2 mg Q4HPRN IV 10/19/24 02:00 10/19/24 06:36 Ondansetron HCl (Zofran) 4 mg TID IV 10/19/24 06:00 10/19/24 03:49 DC Diagnostic Test (Pha) (Accu-Chek Comfort Curve T) 1 strip ACHS 10/19/24 07:00 10/19/24 07:30 Insulin Human Regular (InsuLIN R) HS SC 10/19/24 22:00 Insulin Human Regular (InsuLIN R) AC SC 10/19/24 07:00 10/19/24 07:30 Dextrose 50 ml UD PRN IV Blood Sugar LESS THAN 60 10/18/24 23:00 Ondansetron HCl (Zofran) 4 mg Q8HPRN IV 10/19/24 04:00 10/19/24 06:31 Pantoprazole Sodium (Protonix Tablet) 40 mg DAILY@0600 PO 10/19/24 06:00 10/19/24 06:36 Vital Signs Vital Signs Date Time Temp Pulse Resp B/P (MAP) Pulse Ox O2 Delivery O2 Flow Rate FiO2 10/19/24 14:10 97.9 87 18 141/67 (91) 100 97.9 10/19/24 07:30 Room Air* 0 21 Labs/Diagnostic Data Labs Test 10/19/24 04:30 10/18/24 23:56 10/18/24 17:00 10/18/24 16:37 Range/Units Prothrombin Time 11.4 9.3-11.8 sec Prothrombin Time INR 1.08 0.9-1.15 Activated Partial Thromboplast Time 35.3 H 24.5-34.5 SEC Carcinoembryonic Antigen 2931.49 <=5.0 ng/mL White Blood Count 15.6 H 4.4-10.8 10^3/uL Red Blood Count 4.49 L 4.5-5.90 10^6/uL Hemoglobin 11.7 L 13.5-17.5 g/dL Hematocrit 35.3 L 41.0-53.0 % Mean Corpuscular Volume 78.7 L 80.0-100.0 fL Mean Corpuscular Hemoglobin 26.0 L 28.0-32.0 pg Mean Corpuscular Hemoglobin Concent 33.1 32.0-36.0 g/dL Red Cell Distribution Width 15.8 H 11.8-14.3 % Platelet Count 605 H 140-450 10^3/uL Mean Platelet Volume 7.2 6.9-10.8 fL Neutrophils (%) (Auto) 79.3 37.0-80.0 % Lymphocytes (%) (Auto) 10.9 10.0-50.0 % Monocytes (%) (Auto) 9.1 0.0-12.0 % Eosinophils (%) (Auto) 0.2 0.0-7.0 % Basophils (%) (Auto) 0.5 0.0-2.0 % Neutrophils # (Auto) 12.4 H 1.6-8.6 10 ^3/uL Lymphocytes # (Auto) 1.7 0.4-5.4 10 ^3/uL Monocytes # (Auto) 1.4 H 0-1.3 10 ^3/uL Eosinophils # (Auto) 0 0-0.8 10 ^3/uL Basophils # (Auto) 0.1 0-0.2 10 ^3/uL Nucleated Red Blood Cells 0.0 % Sodium Level 135 L 136-145 mmol/L Potassium Level 3.7 3.5-5.1 mmol/L Chloride Level 102 98-107 mmol/L Carbon Dioxide Level 25 20-31 mmol/L Anion Gap 8 5-15 Blood Urea Nitrogen 12 9-23 mg/dL Creatinine 0.75 0.700-1.30 mg/dL Glomerular Filtration Rate Calc 105 >90 mL/min BUN/Creatinine Ratio 16.0 10.0-20.0 Serum Glucose 206 H 74-106 mg/dL Calcium Level 10.3 8.7-10.4 mg/dL Total Bilirubin 1.0 0.2-1.0 mg/dL Aspartate Amino Transferase (AST) 55 H 13-40 U/L Alanine Aminotransferase (ALT) 25 7-40 U/L Alkaline Phosphatase 384 H 46-116 U/L Total Protein 7.7 5.7-8.2 g/dL Albumin 4.6 3.2-4.8 g/dL Urine Color Yellow Yellow Urine Clarity Clear Clear Urine pH 6.0 5.0-9.0 Urine Specific [place] 1.011 1.001-1.035 Urine Protein 1+ H Negative Urine Ketones Negative Negative Urine Blood Negative Negative /uL Urine Nitrite Negative Negative Urine Bilirubin Negative Negative Urine Urobilinogen 2 H Negative mg/dL Urine Leukocyte Esterase Negative Negative /uL Urine RBC 3 0 - 3 /hpf Urine WBC 4 0 - 3 /hpf Urine Squamous Epithelial Cells None seen <5 /hpf Urine Bacteria None seen None Seen /hpf Urine Glucose 1+ H Normal mg/dL Urine Opiates Screen Pos NEGATIVE Urine Fentanyl Screen Neg NEGATIVE Urine Barbiturates Screen Neg NEGATIVE Urine Phencyclidine Screen Neg NEGATIVE Urine Amphetamines Screen Neg NEGATIVE Urine Benzodiazepines Screen Neg NEGATIVE Urine Cocaine Screen Neg NEGATIVE Urine Cannabinoids Screen Pos NEGATIVE Assessment [id number] ABD PAIN UPPER R/O GASTRITIS, GERD,COLITIS CT SCAN LIVER MASS NO INDICATION FOR URGENT SURGERY GI EVAL FOR POSSIBLE EGD, COLONOSCOPY IF INDICATED LIVER MASS BX BY IR IF CONSIDERED AND INDICATED CLOSE OBSERVATION Plan discussed with: Patient DELILAH ALVARADO MD Oct 19, 2024 14:34
--- NOTE | 2024-10-19 16:01 | DVHINCON2 ---
GI Consult Consult Note GI consult note Date of Consultation: 10/19/2024 Chief Complaint: Elevated CEA Referring Physician: Dr. Yi H&P: 59-year-old male presented to ER with chief complaint of right upper quadrant pain, for last one month, getting worse last two weeks No nausea or vomiting. No melena or red blood in stool. Patient has weight loss of 25 lb in the last 4-6 months, due to lifestyle changes SP cholecystectomy 20 years ago No colonoscopy in past. No family history of colon cancer Past Medical History: DM, hiatal hernia Past Surgical History: Cholecystectomy Social History: Smokes 10 to 12 cigarettes/day, marijuana, occasional drinker and never tried any other drugs. Family History: Noncontributory Review of Systems: Constitutional: no fever, chill, weight loss HEENT: no eye pain, no hearing loss, no oral lesion, no scleral icterus Heart: no chest pain, no chest pressure Lung: no cough, no dyspnea with exertion Abdomen: see HPI Physical exam: General: NAD, AAOX3 Chest: lung valdes clear to auscultation Heart: RRR, no murmur Abdomen: non-distended, no tenderness to palpation, +BS Labs: Labs Test 10/19/24 04:30 10/18/24 23:56 10/18/24 17:00 10/18/24 16:37 Range/Units Prothrombin Time 11.4 9.3-11.8 sec Prothrombin Time INR 1.08 0.9-1.15 Activated Partial Thromboplast Time 35.3 H 24.5-34.5 SEC Carcinoembryonic Antigen 2931.49 <=5.0 ng/mL White Blood Count 15.6 H 4.4-10.8 10^3/uL Red Blood Count 4.49 L 4.5-5.90 10^6/uL Hemoglobin 11.7 L 13.5-17.5 g/dL Hematocrit 35.3 L 41.0-53.0 % Mean Corpuscular Volume 78.7 L 80.0-100.0 fL Mean Corpuscular Hemoglobin 26.0 L 28.0-32.0 pg Mean Corpuscular Hemoglobin Concent 33.1 32.0-36.0 g/dL Red Cell Distribution Width 15.8 H 11.8-14.3 % Platelet Count 605 H 140-450 10^3/uL Mean Platelet Volume 7.2 6.9-10.8 fL Neutrophils (%) (Auto) 79.3 37.0-80.0 % Lymphocytes (%) (Auto) 10.9 10.0-50.0 % Monocytes (%) (Auto) 9.1 0.0-12.0 % Eosinophils (%) (Auto) 0.2 0.0-7.0 % Basophils (%) (Auto) 0.5 0.0-2.0 % Neutrophils # (Auto) 12.4 H 1.6-8.6 10 ^3/uL Lymphocytes # (Auto) 1.7 0.4-5.4 10 ^3/uL Monocytes # (Auto) 1.4 H 0-1.3 10 ^3/uL Eosinophils # (Auto) 0 0-0.8 10 ^3/uL Basophils # (Auto) 0.1 0-0.2 10 ^3/uL Nucleated Red Blood Cells 0.0 % Sodium Level 135 L 136-145 mmol/L Potassium Level 3.7 3.5-5.1 mmol/L Chloride Level 102 98-107 mmol/L Carbon Dioxide Level 25 20-31 mmol/L Anion Gap 8 5-15 Blood Urea Nitrogen 12 9-23 mg/dL Creatinine 0.75 0.700-1.30 mg/dL Glomerular Filtration Rate Calc 105 >90 mL/min BUN/Creatinine Ratio 16.0 10.0-20.0 Serum Glucose 206 H 74-106 mg/dL Calcium Level 10.3 8.7-10.4 mg/dL Total Bilirubin 1.0 0.2-1.0 mg/dL Aspartate Amino Transferase (AST) 55 H 13-40 U/L Alanine Aminotransferase (ALT) 25 7-40 U/L Alkaline Phosphatase 384 H 46-116 U/L Total Protein 7.7 5.7-8.2 g/dL Albumin 4.6 3.2-4.8 g/dL Urine Color Yellow Yellow Urine Clarity Clear Clear Urine pH 6.0 5.0-9.0 Urine Specific [place] 1.011 1.001-1.035 Urine Protein 1+ H Negative Urine Ketones Negative Negative Urine Blood Negative Negative /uL Urine Nitrite Negative Negative Urine Bilirubin Negative Negative Urine Urobilinogen 2 H Negative mg/dL Urine Leukocyte Esterase Negative Negative /uL Urine RBC 3 0 - 3 /hpf Urine WBC 4 0 - 3 /hpf Urine Squamous Epithelial Cells None seen <5 /hpf Urine Bacteria None seen None Seen /hpf Urine Glucose 1+ H Normal mg/dL Urine Opiates Screen Pos NEGATIVE Urine Fentanyl Screen Neg NEGATIVE Urine Barbiturates Screen Neg NEGATIVE Urine Phencyclidine Screen Neg NEGATIVE Urine Amphetamines Screen Neg NEGATIVE Urine Benzodiazepines Screen Neg NEGATIVE Urine Cocaine Screen Neg NEGATIVE Urine Cannabinoids Screen Pos NEGATIVE Imaging: CT abdomen pelvis IMPRESSION: 1. Concentric wall thickening of the descending colon and sigmoid colon may reflect mild infectious / inflammatory colitis. 2. Multiple hypodense masses are seen throughout the liver, largest measuring up to 7.1 cm in the right anterior lobe. These findings are highly suspicious for malignancy. Recommend triple phase abdominal CT for further characterization. 3. Left-sided perinephric stranding may reflect pyelonephritis. Recommend correlation with urinalysis. No nephrolithiasis or hydronephrosis Assessment: Acute abdominal pain Multiple masses in liver Elevated CEA Plan: Discussed with Dr. Livingston - Pt will be scheduled for colonoscopy tomorrow 10/20/2024. Pt was informed of the risks (bleeding, infection, perforation, reaction to sedation medications and cardiopulmonary arrest) and benefit and is agreeable to undergo the procedures. Discussed plan with patient, at bedside and RN Thank you for the consult Date of Service: Oct 19, 2024 Billing Provider: DINESH HENRY Common Visit Codes: CONSULT ONLY Consultation Codes: [id number] CONSULT <60MIN DINESH HENRY Oct 19, 2024 16:01
--- NOTE | 2024-10-19 16:41 | DVH ---
CT HEAD WITH CONTRAST CLINICAL HISTORY: Malignancy. TECHNIQUE: Multiple contiguous axial images of the head with contrast. Coronal and sagittal reformats. 100 cc of Omnipaque 300 contrast was injected intravenously.Radiation Dose Information: CT Dose: CTDI volume is 53.99 mGy. Dose-length product is 865.61 mGy*cm Comparison: None. FINDINGS: There is no evidence of intracranial hemorrhage, mass, mass effect or midline shift. There is no hyd rocephalus or extra-axial fluid collection. There is no pathologic focus of enhancement. There is a small chronic lacunar infarct in the right caudate head region.. The reynolds-white matter differentiatio n appears maintained. The visualized paranasal sinuses and mastoid air cells are clear. The osseous structures appear unrem arkable. IMPRESSION: There is no acute intracranial process. HS:Y
--- NOTE | 2024-10-19 16:57 | DVH ---
Exam: CT CT CHST AB PLV W CON-ORAL IV History: Malignancy Comparison Study: None available at time of dictation. Technique: Multidetector spiral CT of the chest, abdomen and pelvis was performed from lower neck to pubic symphysis with and without contrast. 100 cc Omni 300 intravenous contrast was administered duri ng this examination. Multi phasic imaging was obtained. Axial, coronal and sagittal multiplanar ref ormats were performed by the technologist on a separate workstation. Radiation Dose : Chest/Abdomen/Pelvis: CTDIvol 49 mGy, DLP 2620.45 mGy*cm. Findings: Lower neck: Normal thyroid. Lungs: No focal consolidation, pleural effusion or pneumothorax. Cystic structure posterior to the tr achea in the superior mediastinum could represent a tracheal diverticulum. Heart/Vascular Structures: Normal heart size. No pericardial effusion. Lymph Nodes: Right hilar lymph node measuring up to 10 mm. Pleura: No pleural effusion or significant pneumothorax. Liver: Numerous hypoenhancing masses throughout the liver. Largest mass in the caudate lobe measures up to 83 mm and demonstrates calcification. Gallbladder and biliary Tree: Gallbladder is surgically absent. Spleen: Unremarkable Pancreas: The pancreas is normal in appearance without focal lesions or abnormal enhancement. Adrenal Glands: Unremarkable Kidneys: Subcentimeter left renal cysts. Left perinephric stranding No hydronephrosis or nephrolithia sis. Bladder: Unremarkable Bowel: The stomach is grossly normal in appearance. Small bowel and colon are normal in caliber and d istribution. Normal appendix is visualized in the right lower quadrant without findings of appendici tis. Wall thickening of the descending colon is again noted. Ascites: Absent Lymphadenopathy: Mildly prominent periportal lymph nodes are noted. Abdominal wall and Mesentery: Fat containing left inguinal hernia. Vasculature: The visualized abdominal aorta is normal in size and caliber. Abdominal and pelvic vess els demonstrate normal enhancement. Pelvic Organs: Prostate is enlarged. Musculoskeletal: No aggressive focal bony lesions, acute fractures or dislocation. IMPRESSION: 1. Numerous masses in the liver, largest in the caudate lobe measures up to 83 mm with some calcifica tion. Prominent right hilar lymph node. Prominent periportal lymph nodes. No other evidence of metast atic disease in the chest abdomen and pelvis. Recommend CT-guided biopsy of the most accessible hepat ic mass. Consider further evaluation with PET-CT. HS:Y
[2024-10-19] MEDS: GOLYTELY 4L KIT PO ONE (17:28)
[2024-10-19 17:30] VITALS: BP 123/84; PULSE 80; RESP 48; TEMP 97.8; O2SAT 96; O2SAT 98
--- NOTE | 2024-10-19 17:48 | DVHINCON2 ---
DATE OF CONSULTATION: 10/19/2024 HISTORY OF PRESENT ILLNESS: This patient is 59-year-old, coming in with upper abdominal pain, some nausea and vomiting. No hematemesis or melena. No bleeding per rectum. He has had this happened 2 weeks ago and was given some Protonix, and then he got better and then he comes back for the same symptoms. PAST MEDICAL HISTORY: Diabetes, hiatal hernia. PAST SURGICAL HISTORY: Cholecystectomy, there seems to be it was complicated, but that was some years' ago. Details are not clear. PHYSICAL EXAMINATION: VITAL SIGNS: On examination, afebrile, stable signs. HEENT: With no evidence of pallor, cyanosis, or jaundice. NECK: Supple, nontender with no thyromegaly or lymphadenopathy. CHEST AND LUNGS: Clear. HEART: Within normal limits. ABDOMEN: Soft. Minimally tender in the upper abdomen. No rebound. EXTREMITIES: Unremarkable. NEUROLOGIC: He is intact. CLINICAL IMPRESSION: Abdominal pain, unclear etiology, could be colitis. The CAT scan is suggesting wall thickening of the descending colon and sigmoid colon, that could reflect colitis, and multiple hypodense masses are seen in the liver, the largest one is 7.1 cm and that could be highly suspicious for malignancy; left-sided perinephric stranding may reflect pyelonephritis. My clinical impression is abdominal pain, possibly either from colitis and incidental finding of a liver masses if malignancy is suspected, the primary is not known, and GI evaluation may be indicated for esophagogastroduodenoscopy and/or colonoscopy to rule out a malignancy; and at the same time because of his urinary tract infection as recommended, and also further evaluation by possibly a liver mass biopsy as indicated based upon ongoing evaluation. MD RODERICK Sales/LEXI TID: [id number] RECEIPT: [id number] cc: Dr. Payton
[2024-10-19 18:45] VITALS: BP 143/71; PULSE 80; RESP 16; TEMP 97.7; O2SAT 99
[2024-10-19] MEDS ORDERED: HYDR10SY18 PO (20:26)
[2024-10-19] MEDS ORDERED: TEMA30CA PO (20:28)
[2024-10-19 22:00] VITALS: BP 141/78; PULSE 74; RESP 20; TEMP 97.8; O2SAT 98
[2024-10-20] VITALS (9 sets, daily range): BP systolic 131–154; BP diastolic 64–85; PULSE 70–97; RESP 16–20; TEMP 97.9–98.2; O2SAT 97–100
[2024-10-20] MEDS: MAGNESIUM CITRATE SOLUTION 300 ML BTL PO ONE (05:23)
[2024-10-20] MEDS: GOLYTELY 4L KIT PO ONE (05:23)
[2024-10-20] MEDS: HYDROcodone-ACET 5/325MG TAB PO ONE ×2 (05:58→22:48)
[2024-10-20 06:52] LABS: Basophils # (auto) 0.1 10 ^3/uL (0-0.2); Basophils % (auto) 0.7 % (0.0-2.0); Eosinophils # (auto) 0.1 10 ^3/uL (0-0.8)
[2024-10-20 06:55] LABS: Hematocrit 32.9 % (41.0-53.0); Hemoglobin 10.6 g/dL (13.5-17.5); Lymphocytes # (auto) 1.8 10 ^3/uL (0.4-5.4); Lymphocytes % (auto) 16.4 % (10.0-50.0); Mean Corpuscular Hemoglobin 25.5 pg (28.0-32.0); Mean Corpuscular Hgb Conc. 32.3 g/dL (32.0-36.0); Mean Corpuscular Volume 78.9 fL (80.0-100.0); Monocytes % (auto) 9.2 % (0.0-12.0); Neutrophils # (auto) 8.1 10 ^3/uL (1.6-8.6); Neutrophils % (auto) 72.7 % (37.0-80.0); Platelet Count (auto) 538 10^3/uL (140-450); Red Blood Cells 4.17 10^6/uL (4.5-5.90); Red Cell Distribution Width 15.7 % (11.8-14.3); White Blood Cell 11.2 10^3/uL (4.4-10.8)
[2024-10-20 07:22] LABS: Anion Gap 10 (5-15); Carbon Dioxide 26 mmol/L (20-31); Chloride 102 mmol/L (98-107); Sodium 138 mmol/L (136-145)
[2024-10-20 07:23] LABS: Calcium 9.8 mg/dL (8.7-10.4)
[2024-10-20 07:28] LABS: BUN/Creatinine Ratio 10.8 (10.0-20.0)
[2024-10-20 07:31] LABS: Blood Urea Nitrogen 8 mg/dL (9-23); Glucose 141 mg/dL (74-106); Potassium 3.1 mmol/L (3.5-5.1)
[2024-10-20] MEDS ORDERED: ONDANSETRON HCL 4 MG/2 ML VIAL IV PRN (08:00)
[2024-10-20] MEDS ORDERED: MORPHINE SULFATE INJ 2 MG/ml SYRG IV PRN (08:00)
[2024-10-20] MEDS: POTASSIUM CHL 20MEQ/100ML 100 ML IV SCH (10:00)
[2024-10-20] MEDS ORDERED: PROPOFOL 10 MG/ML 20 ML IV ONE ×3 (11:30→13:09)
[2024-10-20] MEDS ORDERED: LIDOCAINE 1% INJ PF 5ML AMP ONE (11:30)
[2024-10-20] MEDS ORDERED: LIDOCAINE 2% (LOCAL ANESTH.) PF 5ml SDV ONE (12:53)
--- NOTE | 2024-10-20 14:04 | DVHPN2 ---
Progress Note Date Seen: Oct 20, 2024 Medical Necessity Reason Pt with a Central, PICC or Fol: No Objective vital signs Vital Sign Date Time Temp Pulse Resp B/P (MAP) Pulse Ox O2 Delivery O2 Flow Rate FiO2 10/20/24 12:33 97.9 82 16 131/71 (91) 97 97.9 10/19/24 17:30 Room Air* 0 21 medications Current Medications Medications Dose Ordered Sig/Luciana Route Start Time Stop Time Status Last Admin Dose Admin Sodium Chloride 1,000 ml @ 75 mls/hr [id number] IV 10/18/24 23:00 Diagnostic Test (Pha) 1 strip ACHS 10/19/24 07:00 10/20/24 11:30 1 STRIP Insulin Human Regular HS SC 10/19/24 22:00 Insulin Human Regular AC SC 10/19/24 07:00 10/20/24 05:59 2 UNITS Dextrose 50 ml UD PRN IV 10/18/24 23:00 Pantoprazole Sodium 40 mg DAILY@0600 PO 10/19/24 06:00 10/20/24 06:02 40 MG Morphine Sulfate 2 mg Q4HPRN PRN IV 10/20/24 08:00 Ondansetron HCl 4 mg Q8HPRN PRN IV 10/20/24 08:00 laboratory and microbiology Laboratory Tests 10/20/24 06:08 Test 10/20/24 06:08 Range/Units Serum Glucose 141 H 74-106 mg/dL Problem List/Assessment/Plan Problem List/Assessment/Plan AFEBRILE VSS ABD SOFT PAIN LESS COLONOSCOPY DONE CONSIDER SURGERY INDICATED BASED ON ONGOING EVAL CONSIDER ONCOLOGY EVAL Plan discussed with: Patient DELILAH ALVARADO MD Oct 20, 2024 14:04
--- NOTE | 2024-10-20 14:04 | DVHOP2 ---
Operative Report DATE OF OPERATION: 10/20/24 PROCEDURE: Colonoscopy snare polypectomy, biopsy and Marilyn ink tattoo. PREOPERATIVE INDICATION: The patient is a 59 -year-old male undergoing colonoscopy for evaluation of abnormal finding GI tract imaging rule out colon cancer POSTOPERATIVE DIAGNOSES: 1. Patient had a circumferential annular masslike area in the mid to distal transverse colon suspicious for colon cancer from which multiple biopsies were obtained in the proximal and distal end were marked with Marilyn ink 2. There was an adjacent smaller 2-3 mm polyp that was seen and removed completely via cold biopsy forceps 3. Patient had a large 4 cm polyp on a stalk seen in the sigmoid colon at 25 cm above the anal verge. This was removed completely via snare polypectomy from the base of the stalk and the specimen was retrieved 4. Gzpp-xg-odmelief sigmoid diverticular disease 5. 1+ internal hemorrhoids otherwise normal examination up to the cecum and terminal ileum PROCEDURE PERFORMED BY: Amna Livingston M.D. SCOPE: Olympus videocolonoscope. ASA CLASS: 2 PREOPERATIVE MEDICATIONS: MAC sedation; Nikolas Berger PROCEDURE IN DETAIL: After obtaining an informed consent, the patient was placed on left lateral decubitus position. He was then sedated with the above medications. A rectal examination was performed that was normal. The colonoscope was then passed through the anus into the rectosigmoid and through the descending, transverse, and ascending colon up to the cecum with visualization of the appendiceal orifice, base of the cecum and the ileocecal valve. The colonoscope was then withdrawn. The distal 5-10 cm of the terminal ileum were normal. Patient had a mid transverse colon mass which was circumferential semi annular with central ulceration Multiple biopsies were obtained and the proximal and distal margins of the mass area were injected Marilyn ink Currently this area was only partially narrowed but not obstructed. Patient had another smaller a distal transverse colon 2-3 mm polyp This was removed completely via cold biopsy forceps. Patient had sigmoid diverticular disease. In the sigmoid colon at 25 cm above the anal verge the patient had a large 4 cm polyp on a stalk. This was removed completely via snare polypectomy from the base of the stalk and the specimen was retrieved On retroflexion and straight on view the patient had 1+ internal hemorrhoids The patient tolerated the procedure well without difficulty. WITHDRAWAL TIME: 15 minutes QUALITY OF THE PREP: Lovell Bowel Prep score: 8. COMPLICATIONS : None SPECIMENS: Transverse colon mass biopsies Distal transverse colon polyp Large sigmoid polyp DISPOSITION: Transfer back to the floor Stable PLAN: 1. Await biopsy results, consult Oncology 2. Start with clear liquid diet advance to full liquid 3. Hold aspirin NSAIDs blood thinners for 7-10 days 4. Patient will likely need outpatient chemo therapy and treatment 5. Repeat colonoscopy in one year pending his clinical progress and outcome AMNA LIVINGSTON MD Oct 20, 2024 14:04
--- NOTE | 2024-10-20 16:37 | DVHPNRES ---
Progress Note Date Seen: Oct 20, 2024 Resident Creating Document: KAMRAN MOTT RESIDENT Medical Necessity Reason Pt with a Central, PICC or Fol: No Subjective Review of Systems Patient is a 59-year-old male with past medical history of type 2 diabetes, dyslipidemia, hiatal hernia, who came due to abdominal pain. According to the patient for the last 2 weeks he has been experiencing right subcostal pain for which he was hospitalized 2 weeks ago as well. Patient notes that the pain is continuous, 8/10 at onset and 5/10 currently, stabbing in nature and worsening with breathing and movement. Patient notes he has been unable to sleep due to the pain. Patient notes that he is unable to see his PCP and notes that he has never had a colonoscopy. Patient is also status post cholecystectomy. CT abdomen pelvis showed concentric wall thickening of descending and sigmoid colon. Multiple hypodense masses throughout liver with the largest 1 measuring 7.1 cm. Left-sided perinephric stranding. Past surgical history: Cholecystectomy Home medications: Buspirone, escitalopram, metformin, Jardiance, atorvastatin, pioglitazone, hydroxyzine Past Hospitalization: 10/03/2024 for abdominal pain, vomiting, leukocytosis Social & Personal history: Patient lives with and son. Was recently laid off. Smokes 10 cigarettes per day for 40 years. Uses marijuana often. Denies using any other drugs. Allergies: Aspirin (swelling) Patient seen and examined at bedside. Patient is alert and oriented to time, place person and responding to all questions. Notes anxiety and insomnia. Objective vital signs Vital Sign Date Time Temp Pulse Resp B/P (MAP) Pulse Ox O2 Delivery O2 Flow Rate FiO2 10/20/24 14:05 97.9 85 16 142/85 (104) 98 97.9 10/20/24 13:49 Room Air 0 97 medications Current Medications Medications Dose Ordered Sig/Luciana Route Start Time Stop Time Status Last Admin Dose Admin Sodium Chloride 1,000 ml @ 75 mls/hr [id number] IV 10/18/24 23:00 10/19/24 12:20 75 MLS/HR Diagnostic Test (Pha) 1 strip ACHS 10/19/24 07:00 10/20/24 16:28 1 STRIP Insulin Human Regular HS SC 10/19/24 22:00 Insulin Human Regular AC SC 10/19/24 07:00 10/20/24 05:59 2 UNITS Dextrose 50 ml UD PRN IV 10/18/24 23:00 Pantoprazole Sodium 40 mg DAILY@0600 PO 10/19/24 06:00 10/20/24 06:02 40 MG Morphine Sulfate 2 mg Q4HPRN PRN IV 10/20/24 08:00 Ondansetron HCl 4 mg Q8HPRN PRN IV 10/20/24 08:00 Examination General Appearance: Cooperative. Temporal wasting noted Head Exam: Normal inspection Neck Exam: Normal inspection. Non-tender. Normal alignment Pulmonary/Respiratory: Chest non-tender. Clear bilateral breath sounds, no crackles, no wheezing. Cardiovascular/Chest: Regular rate and rhythm. No murmurs. No JVD. Peripheral Pulses: 2+ Radial (R). 2+ Radial (L). 2+ Pedal (R). 2+ Pedal (L) Abdominal Exam: Normal bowel sounds. Soft. Right upper quadrant tenderness to palpation, no visible veins, Nontender. No hepatospenomegaly. No masses Ankle Exam: Negative ankle edema Lower extremities: Negative lower extremity edema Neuro/Mental Status: A&O x4. Coherent. Thoughts/Psych: Normal thought pattern. Appropriate mood and affect. Good judgement and insight Skin Exam: Normal inspection. Normal color. Warm. Dry. Mild yellowing of the sclera laboratory and microbiology Laboratory Tests 10/20/24 06:08 Test 10/20/24 06:08 Range/Units Serum Glucose 141 H 74-106 mg/dL Labs and/or images reviewed: Labs reviewed by me, Image(s) reviewed by me Problem List/Assessment/Plan Problem List/Assessment/Plan Acute intractable abdominal pain: Right subcostal pain with intractable nausea and vomiting Colitis, infectious versus inflammatory Multiple hypodense masses throughout liver, possible metastasis secondary to malignancy vs primary malignancy Mild transaminitis likely due to above Thrombocytosis - CT abdomen pelvis: Concentric wall thickening of the descending colon and sigmoid colon may reflect mild infectious/inflammatory colitis. Multiple hypodense masses are seen throughout the liver, largest measuring up to 7.1 cm in the right anterior lobe. Findings are highly suspicious for malignancy, recommend triple phase abdominal CT for further characterization. Left-sided perinephric stranding may reflect pyelonephritis. Recommend correlation with UA. - CEA 2931.49 - ordered a triple phase CT chest, abdomen, pelvis: Numerous masses in the liver, largest in the caudate lobe measuring 43 mm with some calcifications. Prominent right hilar lymph node. Prominent periportal lymph nodes. No other evidence of metastatic disease in the chest abdomen and pelvis. - head CT with contrast: No acute intracranial process - GI on board - IV NS at 75 cc/hour - IV ceftriaxone, IV metronidazole - IV Zofran - colonoscopy: Circumferential annular like masslike area in the mid to distal transverse colon suspicious for colon cancer for which multiple biopsies were obtained in the proximal distal and were marked with Marilyn ink. An adjacent smaller 2-3 mm polyp that was seen and removed completely via cold biopsy forceps. A large 4 cm polyp on a stalk seen in the sigmoid colon at 25 cm above the anal verge. This was removed completely via snare polypectomy from invasive stocking specimens were retrieved. Kvdx-fu-spggxsar sigmoid diverticular disease. 1+ internal hemorrhoids otherwise normal examination up to cecum and terminal ileum. - holding aspirin and NSAID for 7-10 days. Type 2 diabetes, Hb A1c 7.4 - moderate sliding scale insulin History of hiatal hernia - Protonix 40 mg p.o. daily Goals of care: Full code, discussed for >16 minutes on 10/19/2024 Plan discussed with patient and patient's at bedside for >20 minutes Plan discussed with Dr. Berg Plan discussed with: Patient, Other (RN) My Orders My Orders Orders - KAMRAN MOTT Procedure Category Date Status Time Propofol (Diprivan) PHA 10/20/24 In Process 13:09 Date of Service: Oct 20, 2024 Billing Provider: ANDREW BERG MD Common Visit Codes: [id number] INP/OBS CARE(HIGH) KAMRAN MOTT Oct 20, 2024 16:37 ANDREW BERG MD Oct 25, 2024 21:44
[2024-10-20] MEDS: GASTROGRAFIN 30 ML SOL ONE (18:36)
[2024-10-20] MEDS: IOHEXOL 350 MG/ML 100ML IJ ONE (18:36)
[2024-10-20] MEDS: MELATONIN 5 MG TAB PO ONE (22:00)
[2024-10-21] VITALS (8 sets, daily range): BP systolic 131–152; BP diastolic 64–81; PULSE 71–87; RESP 16–19; TEMP 98–98.8; O2SAT 97–99
--- NOTE | 2024-10-21 06:22 | DVHDSRES ---
Discharge Summary Date of Admission Resident Creating Document: KAMRAN MOTT RESIDENT Oct 18, 2024 at 22:44 Date of Discharge: Oct 21, 2024 Admitting Diagnosis Acute intractable abdominal pain Labs/Diagnostic Data: Laboratory Results Test 10/20/24 21:39 10/20/24 06:08 10/19/24 04:30 10/18/24 23:56 POC Glucose 148 mg/dl (70-106) White Blood Count 11.2 10^3/uL (4.4-10.8) Red Blood Count 4.17 10^6/uL (4.5-5.90) Hemoglobin 10.6 g/dL (13.5-17.5) Hematocrit 32.9 % (41.0-53.0) Mean Corpuscular Volume 78.9 fL (80.0-100.0) Mean Corpuscular Hemoglobin 25.5 pg (28.0-32.0) Mean Corpuscular Hemoglobin Concent 32.3 g/dL (32.0-36.0) Red Cell Distribution Width 15.7 % (11.8-14.3) Platelet Count 538 10^3/uL (140-450) Mean Platelet Volume 7.5 fL (6.9-10.8) Neutrophils (%) (Auto) 72.7 % (37.0-80.0) Lymphocytes (%) (Auto) 16.4 % (10.0-50.0) Monocytes (%) (Auto) 9.2 % (0.0-12.0) Eosinophils (%) (Auto) 1.0 % (0.0-7.0) Basophils (%) (Auto) 0.7 % (0.0-2.0) Neutrophils # (Auto) 8.1 10 ^3/uL (1.6-8.6) Lymphocytes # (Auto) 1.8 10 ^3/uL (0.4-5.4) Monocytes # (Auto) 1.0 10 ^3/uL (0-1.3) Eosinophils # (Auto) 0.1 10 ^3/uL (0-0.8) Basophils # (Auto) 0.1 10 ^3/uL (0-0.2) Nucleated Red Blood Cells 0.0 % Sodium Level 138 mmol/L (136-145) Potassium Level 3.1 mmol/L (3.5-5.1) Chloride Level 102 mmol/L (98-107) Carbon Dioxide Level 26 mmol/L (20-31) Anion Gap 10 (5-15) Blood Urea Nitrogen 8 mg/dL (9-23) Creatinine 0.74 mg/dL (0.700-1.30) Glomerular Filtration Rate Calc 105 mL/min (>90) BUN/Creatinine Ratio 10.8 (10.0-20.0) Serum Glucose 141 mg/dL (74-106) Calcium Level 9.8 mg/dL (8.7-10.4) Prothrombin Time 11.4 sec (9.3-11.8) Prothrombin Time INR 1.08 (0.9-1.15) Activated Partial Thromboplast Time 35.3 SEC (24.5-34.5) Tumor Marker Alpha Fetoprotein 1.9 ng/mL (0.0-8.4) Carcinoembryonic Antigen 2931.49 ng/mL (<=5.0) CA 19-9 Antigen 41 U/mL (0-35) Test 10/18/24 17:00 10/18/24 16:37 Total Bilirubin 1.0 mg/dL (0.2-1.0) Aspartate Amino Transferase (AST) 55 U/L (13-40) Alanine Aminotransferase (ALT) 25 U/L (7-40) Alkaline Phosphatase 384 U/L (46-116) Total Protein 7.7 g/dL (5.7-8.2) Albumin 4.6 g/dL (3.2-4.8) Urine Color Yellow (Yellow) Urine Clarity Clear (Clear) Urine pH 6.0 (5.0-9.0) Urine Specific [place] 1.011 (1.001-1.035) Urine Protein 1+ (Negative) Urine Ketones Negative (Negative) Urine Blood Negative /uL (Negative) Urine Nitrite Negative (Negative) Urine Bilirubin Negative (Negative) Urine Urobilinogen 2 mg/dL (Negative) Urine Leukocyte Esterase Negative /uL (Negative) Urine RBC 3 /hpf (0 - 3) Urine WBC 4 /hpf (0 - 3) Urine Squamous Epithelial Cells None seen /hpf (<5) Urine Bacteria None seen /hpf (None Seen) Urine Glucose 1+ mg/dL (Normal) Urine Opiates Screen Pos (NEGATIVE) Urine Fentanyl Screen Neg (NEGATIVE) Urine Barbiturates Screen Neg (NEGATIVE) Urine Phencyclidine Screen Neg (NEGATIVE) Urine Amphetamines Screen Neg (NEGATIVE) Urine Benzodiazepines Screen Neg (NEGATIVE) Urine Cocaine Screen Neg (NEGATIVE) Urine Cannabinoids Screen Pos (NEGATIVE) Other Laboratory Tests 10/20/24 06:08 Brief Hx & Hospital Course: Patient is a 59-year-old male with past medical history of type 2 diabetes, dyslipidemia, hiatal hernia, who came due to abdominal pain. According to the patient for the last 2 weeks he has been experiencing right subcostal pain for which he was hospitalized 2 weeks ago as well. Patient notes that the pain is continuous, 8/10 at onset and 5/10 currently, stabbing in nature and worsening with breathing and movement. Patient notes he has been unable to sleep due to the pain. Patient notes that he is unable to see his PCP and notes that he has never had a colonoscopy. Patient is also status post cholecystectomy. CT abdomen pelvis showed concentric wall thickening of descending and sigmoid colon. Multiple hypodense masses throughout liver with the largest 1 measuring 7.1 cm. Left-sided perinephric stranding. Hospital course: CEA was noted to be 2931. A triple phase CT chest abdomen pelvis was ordered for the patient which showed numerous masses in the liver, largest in the caudate lobe measuring 43 mm with some calcifications. Prominent right hilar lymph nodes. Prominent periportal lymph nodes. No other evidence of metastatic disease in the chest abdomen and pelvis. Head CT with contrast showed no acute intracranial process. GI was consulted and patient was continued on IV NS, IV ceftriaxone metronidazole and IV Zofran. Patient underwent a colonoscopy which showed circumferential annular like masslike area in the mid to distal transverse colon suspicious for colon cancer from which multiple biopsies were obtained in the proximal distal and were marked with Marilyn ink. Adjacent small 2-3 mm polyp that was seen and removed completely via cold biopsy forceps. A large 4 cm polyp on a stalk seen in the sigmoid colon at 25 cm above the anal verge. This was removed completely via snare polypectomy from which specimens were retrieved. [id number] sigmoid diverticular disease. 1+ internal hemorrhoids otherwise normal examination up to the cecum and terminal ileum. Patient was also continued on moderate sliding scale insulin and Protonix for history of hiatal hernia. On the day of discharge, details of hospitalization and imaging plus colonoscopy results were explained to patient and his in great detail were all questions were answered and concerns were addressed. Patient was instructed to follow up with Oncology in the outpatient clinic for possible chemotherapy, patient was also guided to reach out to [facility]. His hospital course was uncomplicated. General Appearance: Cooperative. Temporal wasting noted Head Exam: Normal inspection Neck Exam: Normal inspection. Non-tender. Normal alignment Pulmonary/Respiratory: Chest non-tender. Clear bilateral breath sounds, no crackles, no wheezing. Cardiovascular/Chest: Regular rate and rhythm. No murmurs. No JVD. Peripheral Pulses: 2+ Radial (R). 2+ Radial (L). 2+ Pedal (R). 2+ Pedal (L) Abdominal Exam: Normal bowel sounds. Soft. Right upper quadrant tenderness to palpation, no visible veins, Nontender. No hepatospenomegaly. No masses Ankle Exam: Negative ankle edema Lower extremities: Negative lower extremity edema Neuro/Mental Status: A&O x4. Coherent. Thoughts/Psych: Normal thought pattern. Appropriate mood and affect. Good judgement and insight Skin Exam: Normal inspection. Normal color. Warm. Dry. Mild yellowing of the sclera Consults/Reason for consult GI: For colonoscopy to rule out/rule in colon cancer Operations or Procedures Operative Report Operative Report DATE OF OPERATION: 10/20/24 PROCEDURE: Colonoscopy snare polypectomy, biopsy and Marilyn ink tattoo. PREOPERATIVE INDICATION: The patient is a 59 -year-old male undergoing colonoscopy for evaluation of abnormal finding GI tract imaging rule out colon cancer POSTOPERATIVE DIAGNOSES: 1. Patient had a circumferential annular masslike area in the mid to distal transverse colon suspicious for colon cancer from which multiple biopsies were obtained in the proximal and distal end were marked with Marilyn ink 2. There was an adjacent smaller 2-3 mm polyp that was seen and removed completely via cold biopsy forceps 3. Patient had a large 4 cm polyp on a stalk seen in the sigmoid colon at 25 cm above the anal verge. This was removed completely via snare polypectomy from the base of the stalk and the specimen was retrieved 4. [id number]-[id number] sigmoid diverticular disease 5. 1+ internal hemorrhoids otherwise normal examination up to the cecum and terminal ileum PROCEDURE PERFORMED BY: Ashly Livingston M.D. SCOPE: Olympus videocolonoscope. ASA CLASS: 2 PREOPERATIVE MEDICATIONS: MAC sedation; Nikolas Berger PROCEDURE IN DETAIL: After obtaining an informed consent, the patient was placed on left lateral decubitus position. He was then sedated with the above medications. A rectal examination was performed that was normal. The colonoscope was then passed through the anus into the rectosigmoid and through the descending, transverse, and ascending colon up to the cecum with visualization of the appendiceal orifice, base of the cecum and the ileocecal valve. The colonoscope was then withdrawn. The distal 5-10 cm of the terminal ileum were normal. Patient had a mid transverse colon mass which was circumferential semi annular with central ulceration Multiple biopsies were obtained and the proximal and distal margins of the mass area were injected Marilyn ink Currently this area was only partially narrowed but not obstructed. Patient had another smaller a distal transverse colon 2-3 mm polyp This was removed completely via cold biopsy forceps. Patient had sigmoid diverticular disease. In the sigmoid colon at 25 cm above the anal verge the patient had a large 4 cm polyp on a stalk. This was removed completely via snare polypectomy from the base of the stalk and the specimen was retrieved On retroflexion and straight on view the patient had 1+ internal hemorrhoids The patient tolerated the procedure well without difficulty. WITHDRAWAL TIME: 15 minutes QUALITY OF THE PREP: [place] Bowel Prep score: 8. COMPLICATIONS : None SPECIMENS: Transverse colon mass biopsies Distal transverse colon polyp Large sigmoid polyp DISPOSITION: Transfer back to the floor Stable PLAN: 1. Await biopsy results, consult Oncology 2. Start with clear liquid diet advance to full liquid 3. Hold aspirin NSAIDs blood thinners for 7-10 days 4. Patient will likely need outpatient chemo therapy and treatment 5. Repeat colonoscopy in one year pending his clinical progress and outcome Exam: CT CT CHST AB PLV W CON-ORAL IV History: Malignancy Comparison Study: None available at time of dictation. Technique: Multidetector spiral CT of the chest, abdomen and pelvis was performed from lower neck to pubic symphysis with and without contrast. 100 cc Omni 300 intravenous contrast was administered during this examination. Multi phasic imaging was obtained. Axial, coronal and sagittal multiplanar reformats were performed by the technologist on a separate workstation. Radiation Dose : Chest/Abdomen/Pelvis: CTDIvol 49 mGy, DLP 2620.45 mGy*cm. Findings: Lower neck: Normal thyroid. Lungs: No focal consolidation, pleural effusion or pneumothorax. Cystic structure posterior to the trachea in the superior mediastinum could represent a tracheal diverticulum. Heart/Vascular Structures: Normal heart size. No pericardial effusion. Lymph Nodes: Right hilar lymph node measuring up to 10 mm. Pleura: No pleural effusion or significant pneumothorax. Liver: Numerous hypoenhancing masses throughout the liver. Largest mass in the caudate lobe measures up to 83 mm and demonstrates calcification. Gallbladder and biliary Tree: Gallbladder is surgically absent. Spleen: Unremarkable Pancreas: The pancreas is normal in appearance without focal lesions or abnormal enhancement. Adrenal Glands: Unremarkable Kidneys: Subcentimeter left renal cysts. Left perinephric stranding No hydronephrosis or nephrolithiasis. Bladder: Unremarkable Bowel: The stomach is grossly normal in appearance. Small bowel and colon are normal in caliber and distribution. Normal appendix is visualized in the right lower quadrant without findings of appendicitis. Wall thickening of the descending colon is again noted. Ascites: Absent Lymphadenopathy: Mildly prominent periportal lymph nodes are noted. Abdominal wall and Mesentery: Fat containing left inguinal hernia. Vasculature: The visualized abdominal aorta is normal in size and caliber. Abdominal and pelvic vessels demonstrate normal enhancement. Pelvic Organs: Prostate is enlarged. Musculoskeletal: No aggressive focal bony lesions, acute fractures or dislocation. IMPRESSION: 1. Numerous masses in the liver, largest in the caudate lobe measures up to 83 mm with some calcification. Prominent right hilar lymph node. Prominent periportal lymph nodes. No other evidence of metastatic disease in the chest abdomen and pelvis. Recommend CT-guided biopsy of the most accessible hepatic mass. Consider further evaluation with PET-CT. HS:Y RING PHYSICIAN: KAMRAN MOTT RESIDENT PROCEDURE(s): HDWCT - HEAD CONTRAST ONLY REASON: Malignancy ORDER NUMBER(s): [id number], ACCESSION NUMBER(s): [id number] CT HEAD WITH CONTRAST CLINICAL HISTORY: Malignancy. TECHNIQUE: Multiple contiguous axial images of the head with contrast. Coronal and sagittal reformats. 100 cc of Omnipaque 300 contrast was injected intravenously.Radiation Dose Information: CT Dose: CTDI volume is 53.99 mGy. Dose-length product is 865.61 mGy*cm Comparison: None. FINDINGS: There is no evidence of intracranial hemorrhage, mass, mass effect or midline shift. There is no hydrocephalus or extra-axial fluid collection. There is no pathologic focus of enhancement. There is a small chronic lacunar infarct in the right caudate head region.. The reynolds-white matter differentiation appears maintained. The visualized paranasal sinuses and mastoid air cells are clear. The osseous structures appear unremarkable. IMPRESSION: There is no acute intracranial process. Condition at Discharge: Good Final Diagnosis/Problems List Acute intractable abdominal pain with intractable nausea and vomiting Metastatic colon cancer Colitis, infectious versus inflammatory Mild transaminitis Thrombocytosis Type 2 diabetes History of hiatal hernia Discharge Disposition: Home Discharge Instruct/Medications Diet: Consistent carbohydrate Follow Up/Referral: Please follow up with Oncology in the outpatient clinic for chemotherapy Please follow up with discharge clinic in 1-2 weeks Discharge Statement: "Patient was advised to return to the ER or call 911 if any headaches, dizziness, shortness of breath, chest pain, abdominal pain, bleeding, fevers, or worsening of medical condition. Patient was counseled about treatment plan, medications, possible side effects, patientverbalized understanding. All questions were answered to the best of my ability. This discharge took greater then 30 minutes in planning, reviewing documentation, counseling the patient, and discussing with other team members." ASSESSMENT ASSESSMENT Assessment KAMRAN MOTT RESIDENT Oct 21, 2024 06:22
[2024-10-21 10:37] LABS: Hepatitis B Core Total AB Negative (Negative)
--- NOTE | 2024-10-21 11:47 | DVHPNRES ---
Progress Note Date Seen: Oct 21, 2024 Resident Creating Document: KAMRAN MOTT RESIDENT Medical Necessity Reason Pt with a Central, PICC or Fol: No Subjective Review of Systems Patient is a 59-year-old male with past medical history of type 2 diabetes, dyslipidemia, hiatal hernia, who came due to abdominal pain. According to the patient for the last 2 weeks he has been experiencing right subcostal pain for which he was hospitalized 2 weeks ago as well. Patient notes that the pain is continuous, 8/10 at onset and 5/10 currently, stabbing in nature and worsening with breathing and movement. Patient notes he has been unable to sleep due to the pain. Patient notes that he is unable to see his PCP and notes that he has never had a colonoscopy. Patient is also status post cholecystectomy. CT abdomen pelvis showed concentric wall thickening of descending and sigmoid colon. Multiple hypodense masses throughout liver with the largest 1 measuring 7.1 cm. Left-sided perinephric stranding. Past surgical history: Cholecystectomy Home medications: Buspirone, escitalopram, metformin, Jardiance, atorvastatin, pioglitazone, hydroxyzine Past Hospitalization: 10/03/2024 for abdominal pain, vomiting, leukocytosis Social & Personal history: Patient lives with and son. Was recently laid off. Smokes 10 cigarettes per day for 40 years. Uses marijuana often. Denies using any other drugs. Allergies: Aspirin (swelling) Patient seen and examined at bedside. Patient is alert and oriented to time, place person and responding to all questions. Notes anxiety and insomnia. improved abdominal pain Objective vital signs Vital Sign Date Time Temp Pulse Resp B/P (MAP) Pulse Ox O2 Delivery O2 Flow Rate FiO2 10/21/24 08:45 98.2 72 17 139/81 (100) 98 98.2 10/21/24 08:00 Room Air* 0 21 Total Intake and Output 10/20/24 10/20/24 10/21/24 15:00 23:00 07:00 Intake Total 100 ml 100 ml 430 ml Output Total 3 ml Balance 100 ml 97 ml 430 ml medications Current Medications Medications Dose Ordered Sig/Luciana Route Start Time Stop Time Status Last Admin Dose Admin Sodium Chloride 1,000 ml @ 75 mls/hr [id number] IV 10/18/24 23:00 10/21/24 04:51 75 MLS/HR Diagnostic Test (Pha) 1 strip ACHS 10/19/24 07:00 10/21/24 06:23 1 STRIP Insulin Human Regular HS SC 10/19/24 22:00 10/20/24 21:43 2 UNITS Insulin Human Regular AC SC 10/19/24 07:00 10/21/24 06:35 2 UNITS Dextrose 50 ml UD PRN IV 10/18/24 23:00 Pantoprazole Sodium 40 mg DAILY@0600 PO 10/19/24 06:00 10/21/24 06:22 40 MG Morphine Sulfate 2 mg Q4HPRN PRN IV 10/20/24 08:00 Ondansetron HCl 4 mg Q8HPRN PRN IV 10/20/24 08:00 Examination General Appearance: Cooperative. Temporal wasting noted Head Exam: Normal inspection Neck Exam: Normal inspection. Non-tender. Normal alignment Pulmonary/Respiratory: Chest non-tender. Clear bilateral breath sounds, no crackles, no wheezing. Cardiovascular/Chest: Regular rate and rhythm. No murmurs. No JVD. Peripheral Pulses: 2+ Radial (R). 2+ Radial (L). 2+ Pedal (R). 2+ Pedal (L) Abdominal Exam: Normal bowel sounds. Soft. Right upper quadrant tenderness to palpation, no visible veins, Nontender. No hepatospenomegaly. No masses Ankle Exam: Negative ankle edema Lower extremities: Negative lower extremity edema Neuro/Mental Status: A&O x4. Coherent. Thoughts/Psych: Normal thought pattern. Appropriate mood and affect. Good judgement and insight Skin Exam: Normal inspection. Normal color. Warm. Dry. Mild yellowing of the sclera laboratory and microbiology Laboratory Tests 10/20/24 06:08 Test 10/20/24 06:08 Range/Units Serum Glucose 141 H 74-106 mg/dL Problem List/Assessment/Plan Problem List/Assessment/Plan Acute intractable abdominal pain: Right subcostal pain with intractable nausea and vomiting Colitis, infectious versus inflammatory Multiple hypodense masses throughout liver, possible metastasis secondary to malignancy vs primary malignancy Mild transaminitis likely due to above Thrombocytosis - CT abdomen pelvis: Concentric wall thickening of the descending colon and sigmoid colon may reflect mild infectious/inflammatory colitis. Multiple hypodense masses are seen throughout the liver, largest measuring up to 7.1 cm in the right anterior lobe. Findings are highly suspicious for malignancy, recommend triple phase abdominal CT for further characterization. Left-sided perinephric stranding may reflect pyelonephritis. Recommend correlation with UA. - CEA 2931.49 - ordered a triple phase CT chest, abdomen, pelvis: Numerous masses in the liver, largest in the caudate lobe measuring 43 mm with some calcifications. Prominent right hilar lymph node. Prominent periportal lymph nodes. No other evidence of metastatic disease in the chest abdomen and pelvis. - head CT with contrast: No acute intracranial process - GI on board - IV NS at 75 cc/hour - IV ceftriaxone, IV metronidazole - IV Zofran - colonoscopy: Circumferential annular like masslike area in the mid to distal transverse colon suspicious for colon cancer for which multiple biopsies were obtained in the proximal distal and were marked with Marilyn ink. An adjacent smaller 2-3 mm polyp that was seen and removed completely via cold biopsy forceps. A large 4 cm polyp on a stalk seen in the sigmoid colon at 25 cm above the anal verge. This was removed completely via snare polypectomy from invasive stocking specimens were retrieved. Wzyo-wq-bhssgdag sigmoid diverticular disease. 1+ internal hemorrhoids otherwise normal examination up to cecum and terminal ileum. - holding aspirin and NSAID for 7-10 days. - surgery on board, may go for surgery tomorrow as patient already bowel prepped - awaiting oncology eval Type 2 diabetes, Hb A1c 7.4 - moderate sliding scale insulin History of hiatal hernia - Protonix 40 mg p.o. daily Goals of care: Full code, discussed for >16 minutes on 10/19/2024 Plan discussed with patient and patient's at bedside for >20 minutes Plan discussed with Dr. Berg Plan discussed with: Patient, Other (RN) My Orders My Orders Orders - KAMRAN MOTT RESIDENT Procedure Category Date Status Time Propofol (Diprivan) PHA 10/20/24 In Process 13:09 Date of Service: Oct 21, 2024 Billing Provider: ANDREW BERG MD Common Visit Codes: [id number] INP/OBS CARE(HIGH) KAMRAN MOTT Oct 21, 2024 11:47 ANDREW BERG MD Oct 25, 2024 21:45
[2024-10-21 12:39] LABS: Hepatitis A Total Antibody Positive (Negative); Hepatitis B Surface Antibody Negative (Negative); Hepatitis B Surface Antigen Negative (Negative); Hepatitis C Antibody Negative (Negative)
--- NOTE | 2024-10-21 17:19 | DVHPN2 ---
Progress Note - Dictate Date Seen: Oct 21, 2024 Medical Necessity Reason Pt with a Central, PICC or Fol: No Subjective No new complaints Patient is tolerating a mechanical soft diet Patient was complaining of some insomnia Head CT was negative vital signs Vital Sign Date Time Temp Pulse Resp B/P (MAP) Pulse Ox O2 Delivery O2 Flow Rate FiO2 10/21/24 16:37 98.0 76 17 136/69 (91) 97 98.0 10/21/24 08:00 Room Air* 0 21 Total Intake and Output 10/20/24 10/20/24 10/21/24 15:00 23:00 07:00 Intake Total 100 ml 100 ml 430 ml Output Total 3 ml Balance 100 ml 97 ml 430 ml medications Current Medications Medications Dose Ordered Sig/Luciana Route Start Time Stop Time Status Last Admin Dose Admin Sodium Chloride 1,000 ml @ 75 mls/hr [id number] IV 10/18/24 23:00 10/21/24 04:51 75 MLS/HR Diagnostic Test (Pha) 1 strip ACHS 10/19/24 07:00 10/21/24 16:30 1 STRIP Insulin Human Regular HS SC 10/19/24 22:00 10/20/24 21:43 2 UNITS Insulin Human Regular AC SC 10/19/24 07:00 10/21/24 16:30 3 UNITS Dextrose 50 ml UD PRN IV 10/18/24 23:00 Pantoprazole Sodium 40 mg DAILY@0600 PO 10/19/24 06:00 10/21/24 06:22 40 MG Morphine Sulfate 2 mg Q4HPRN PRN IV 10/20/24 08:00 Ondansetron HCl 4 mg Q8HPRN PRN IV 10/20/24 08:00 objective General: NAD, AAOX3 Chest: lung valdes clear to auscultation Heart: RRR, no murmur Abdomen: non-distended, no tenderness to palpation, +BS laboratory and microbiology Laboratory Tests 10/20/24 06:08 Test 10/20/24 06:08 Range/Units Serum Glucose 141 H 74-106 mg/dL CT Chest Abd Pelvis IMPRESSION: 1. Numerous masses in the liver, largest in the caudate lobe measures up to 83 mm with some calcification. Prominent right hilar lymph node. Prominent periportal lymph nodes. No other evidence of metastatic disease in the chest abdomen and pelvis. Recommend CT-guided biopsy of the most accessible hepatic mass. Consider further evaluation with PET-CT. Problems(with codes): (1) Sigmoid polyp (2) Cancer of transverse colon (3) Intractable abdominal pain (4) Leukocytosis, unspecified (5) Generalized weakness (6) Metastatic carcinoma to liver Prognosis Plan Patient with transverse colon mass suspicious for adenocarcinoma, elevated CEA level Patient has evidence of extensive metastatic disease to liver and periportal lymphadenopathy also Currently the transverse colon lesion is nonobstructing and patient is tolerating a soft diet Recommend Oncology evaluation; patient will likely benefit from chemotherapy We will discuss with surgical consult as I believe the patient may not need any urgent surgery in the light of having extensive metastatic disease Patient may have to be referred to [facility], we will get social media intern involved to see how we can provide him further ongoing care Dietary Evaluation Review Comments: 1) Advance pt diet when medically feasible to a CCHO 75g diet 2) Continue current plan of care Expected Outcomes/Goals: 1) Pt diet to advance 2) F/U in 2-3 days Plan discussed with: Patient, Other (Dr Doan) AMNA ALVARADO MD Oct 21, 2024 17:19
[2024-10-22] VITALS (12 sets, daily range): BP systolic 126–167; BP diastolic 56–87; PULSE 63–89; RESP 4–22; TEMP 97.4–98.3; O2SAT 96–100
[2024-10-22] MEDS: TEMAZEPAM 15 MG CAP PO PRN (00:18)
--- NOTE | 2024-10-22 08:07 | DVHINCON2 ---
Date of service: Oct 22, [address] Sharp Reason for Consultation Clinically metastatic colon cancer History of Present Illness 59 years old gentleman gives a history of diabetes. Otherwise has been in good health. He has started having nausea vomiting abdominal pains around [place] 2023 Has been in the right upper quadrant of the abdomen. The nausea vomiting is better. No diarrhea no melena or blood in the stools. The patient has intentionally lost 25 lb in the last 4-6 months because of better control of the diabetes with the diet and exercise. The patient had colonoscopic evaluation on 10/20/[address] Anabelle Livingston showing a circumferential annular masslike area in the mid transverse colon suspicious for colon cancer and biopsies were taken and the report is pending. There was an adjacent smaller 2-3 mm polyp that was seen and removed. Large 4 cm polyp on a stalk seen in the sigmoid colon at 25 cm above the anal verge which was removed completely by snare polypectomy from the base of the stalk and specimen was retrieved CT of the chest abdomen pelvis was done with contrast which showed Numerous masses in the liver, largest in the caudate lobe measures up to 83 mm with some calcification. Prominent right hilar lymph node. Prominent periportal lymph nodes. No other evidence of metastatic disease in the chest abdomen and pelvis. Recommend CT-guided biopsy of the most accessible hepatic mass. The patient had a CT of the brain which was unremarkable His CEA was 2931.49. Total protein 7.7 albumin 4.6 AST 55 ALT 25 total bili one GFR 69 CBC showed a white count of 11.2 hemoglobin 10.6 platelets 538 with a normal differential Past Medical History Diabetes mellitus Cholecystectomy Hiatus hernia Family History: Patient reports no known family medical history. Family History Unremarkable for malignancy or hematological disorders Social History Smokes half a pack of cigarettes a day for 37 years No alcohol or drugs The patient lost his job from the esc[employer] Allergies: Coded Allergies: Aspirin (Verified Allergy, Unknown, 10/02/24) Home Meds Reported Medications Temazepam (Temazepam) 30 Mg Cap, 1 CAP PO QPM, #30 CAP 1 Refill 10/19/24 Hydroxyzine Hcl (Hydroxyzine Hcl) 10 Mg/5 Ml Syp, 10 MG PO, SYP 10/19/24 Buspirone HCl (Buspirone HCl) 10 Mg Tab, 1 TAB PO TID 10/03/24 Metformin Hydrochloride (Metformin Hcl) 500 Mg Tab, BID 02/05/13 Current Medications Current Medications Medications (Trade) Dose Ordered Sig/Luciana Route PRN Reason Start Time Stop Time Status Last Admin Temazepam (Restoril) 15 mg HSPRN PRN PO FOR INSOMNIA 10/21/24 17:15 10/22/24 00:18 Vital Signs Vital Signs Date Time Temp Pulse Resp B/P (MAP) Pulse Ox O2 Delivery O2 Flow Rate FiO2 10/22/24 05:38 97.4 70 4 137/58 (84) 97 97.4 10/21/24 20:00 Room Air* 0 21 Physical Exam Moderately built and nourished, in no acute distress, alert and oriented. No jaundice Head and neck: Unremarkable for any masses or neck nodes. No conjunctival or mucosal hemorrhage Lungs: Clear Cardiovascular: S1-S2 heard well Abdomen: No organomegaly, tenderness or ascites. Bowel sounds are present. Extremities: No clubbing edema cyanosis or calf tenderness. Skin: Unremarkable for petechia purpura ecchymosis Lymphadenopathy: None Neurological exam: No focal deficit Labs/Diagnostic Data Labs Test 10/22/24 06:58 10/22/24 05:53 10/20/24 06:08 10/19/24 04:30 Range/Units POC Glucose 139 H 70-106 mg/dl Eosinophils (%) (Auto) 1.0 0.0-7.0 % Eosinophils # (Auto) 0.1 0-0.8 10 ^3/uL Basophils # (Auto) 0.1 0-0.2 10 ^3/uL Nucleated Red Blood Cells 0.0 % Prothrombin Time 11.4 9.3-11.8 sec Prothrombin Time INR 1.08 0.9-1.15 Activated Partial Thromboplast Time 35.3 H 24.5-34.5 SEC Test 10/18/24 23:56 10/18/24 17:00 10/18/24 16:37 Range/Units Tumor Marker Alpha Fetoprotein 1.9 0.0-8.4 ng/mL Carcinoembryonic Antigen 2931.49 <=5.0 ng/mL CA 19-9 Antigen 41 H 0-35 U/mL Hepatitis A Antibody Total Positive H Negative Hepatitis B Surface Antigen Negative Negative Hepatitis B Surface Antibody Negative Negative Hepatitis B Core Total Antibody Negative Negative Hepatitis C Antibody Negative Negative Total Bilirubin 1.0 0.2-1.0 mg/dL Aspartate Amino Transferase (AST) 55 H 13-40 U/L Alanine Aminotransferase (ALT) 25 7-40 U/L Alkaline Phosphatase 384 H 46-116 U/L Total Protein 7.7 5.7-8.2 g/dL Albumin 4.6 3.2-4.8 g/dL Urine Color Yellow Yellow Urine Clarity Clear Clear Urine pH 6.0 5.0-9.0 Urine Specific [place] 1.011 1.001-1.035 Urine Protein 1+ H Negative Urine Ketones Negative Negative Urine Blood Negative Negative /uL Urine Nitrite Negative Negative Urine Bilirubin Negative Negative Urine Urobilinogen 2 H Negative mg/dL Urine Leukocyte Esterase Negative Negative /uL Urine RBC 3 0 - 3 /hpf Urine WBC 4 0 - 3 /hpf Urine Squamous Epithelial Cells None seen <5 /hpf Urine Bacteria None seen None Seen /hpf Urine Glucose 1+ H Normal mg/dL Urine Opiates Screen Pos NEGATIVE Urine Fentanyl Screen Neg NEGATIVE Urine Barbiturates Screen Neg NEGATIVE Urine Phencyclidine Screen Neg NEGATIVE Urine Amphetamines Screen Neg NEGATIVE Urine Benzodiazepines Screen Neg NEGATIVE Urine Cocaine Screen Neg NEGATIVE Urine Cannabinoids Screen Pos NEGATIVE Assessment 1. Clinically because of cancer the pathology report pending with a CT scan showing multiple liver Mets, some periportal lymph nodes and prominent right hilar lymph node High CEA of 2900 2. Diabetes mellitus Plan/Recommendation We will suggest doing a liver biopsy by the IR Port-A-Cath for systemic chemotherapy As there is no obstructive or significant bleeding symptoms there will not be any role of surgery on the colon The patient is advised to follow up with me in the next week Plan discussed with: Patient LIZA LOMELI MD Oct 22, 2024 08:07
[2024-10-22 08:18] LABS: Anion Gap 7 (5-15); Carbon Dioxide 25 mmol/L (20-31); Sodium 139 mmol/L (136-145)
[2024-10-22 08:19] LABS: Basophils # (auto) 0.1 10 ^3/uL (0-0.2); Calcium 9.1 mg/dL (8.7-10.4); Eosinophils # (auto) 0.3 10 ^3/uL (0-0.8); Eosinophils % (auto) 2.1 % (0.0-7.0); Lymphocytes % (auto) 21.1 % (10.0-50.0); Neutrophils % (auto) 66.2 % (37.0-80.0)
[2024-10-22 08:22] LABS: Basophils % (auto) 0.8 % (0.0-2.0); Hematocrit 30.7 % (41.0-53.0); Hemoglobin 9.9 g/dL (13.5-17.5); Lymphocytes # (auto) 2.6 10 ^3/uL (0.4-5.4); Mean Corpuscular Hemoglobin 25.2 pg (28.0-32.0); Mean Corpuscular Hgb Conc. 32.1 g/dL (32.0-36.0); Mean Corpuscular Volume 78.5 fL (80.0-100.0); Monocytes # (auto) 1.2 10 ^3/uL (0-1.3); Monocytes % (auto) 9.8 % (0.0-12.0); Platelet Count (auto) 432 10^3/uL (140-450); Red Blood Cells 3.91 10^6/uL (4.5-5.90); Red Cell Distribution Width 16.2 % (11.8-14.3); White Blood Cell 12.1 10^3/uL (4.4-10.8)
[2024-10-22 08:27] LABS: BUN/Creatinine Ratio 7.9 (10.0-20.0); Blood Urea Nitrogen < 5 mg/dL (9-23); Chloride 107 mmol/L (98-107); Glucose 123 mg/dL (74-106); Potassium 3.2 mmol/L (3.5-5.1)
[2024-10-22] MEDS: HEPARIN SODIUM (PORCINE) 5000 UNITS/ML 1ML VIAL ONE (15:11)
[2024-10-22] MEDS: fentaNYL CITRATE 100 MCG/2 ML VL ONE (15:11)
[2024-10-22] MEDS: MIDAZOLAM HCL 2MG/2ML 2ml VIAL (1mg/ml) ONE (15:12)
[2024-10-22] MEDS: LIDOCAINE 2%HCL (LOCAL ANESTH.) INJ 20ML MDV ONE (15:12)
[2024-10-22] MEDS: ceFAZolin 1GM/50ML 50 ML IV ONE (15:25)
[2024-10-22] MEDS: LIDOCAINE W/ EPINEPHRINE 2% INJ 20ML VIAL ONE (15:48)
--- NOTE | 2024-10-22 16:23 | DVHPN2 ---
Progress Note - Dictate Date Seen: Oct 22, 2024 Medical Necessity Reason Pt with a Central, PICC or Fol: No Subjective No new complaints Patient is tolerating a mechanical soft diet Colonoscopy Findings discussed with the patient vital signs Vital Sign Date Time Temp Pulse Resp B/P (MAP) Pulse Ox O2 Delivery O2 Flow Rate FiO2 10/22/24 13:00 97.9 74 20 126/63 (84) 99 97.9 10/22/24 08:10 Room Air* 0 21 Total Intake and Output 10/21/24 10/21/24 10/22/24 15:00 23:00 07:00 Intake Total 800 ml 250 ml Balance 800 ml 250 ml medications Current Medications Medications Dose Ordered Sig/Luciana Route Start Time Stop Time Status Last Admin Dose Admin Sodium Chloride 1,000 ml @ 75 mls/hr [id number] IV 10/18/24 23:00 10/22/24 07:00 75 MLS/HR Diagnostic Test (Pha) 1 strip ACHS 10/19/24 07:00 10/22/24 11:30 1 STRIP Insulin Human Regular HS SC 10/19/24 22:00 10/21/24 21:33 3 UNITS Insulin Human Regular AC SC 10/19/24 07:00 10/22/24 05:57 2 UNITS Dextrose 50 ml UD PRN IV 10/18/24 23:00 Pantoprazole Sodium 40 mg DAILY@0600 PO 10/19/24 06:00 10/22/24 05:52 40 MG Morphine Sulfate 2 mg Q4HPRN PRN IV 10/20/24 08:00 Ondansetron HCl 4 mg Q8HPRN PRN IV 10/20/24 08:00 Temazepam 15 mg HSPRN PRN PO 10/21/24 17:15 10/22/24 00:18 15 MG objective General: NAD, AAOX3 Chest: lung valdes clear to auscultation Heart: RRR, no murmur Abdomen: non-distended, no tenderness to palpation, +BS laboratory and microbiology Laboratory Tests 10/22/24 06:58 Test 10/22/24 06:58 Range/Units Serum Glucose 123 H 74-106 mg/dL Problems(with codes): (1) Metastatic carcinoma to liver (2) Sigmoid polyp (3) Leukocytosis, unspecified (4) Cancer of transverse colon (5) Generalized weakness (6) Suspected malignant neoplasm (7) Elevated liver enzymes (8) Intractable abdominal pain Prognosis Plan Appreciate oncology consult He recommends a Port-A-Cath and IR guided liver biopsy We will get Interventional Radiology consult for same No colectomy indicated at this time as there was no bleeding or obstruction We will ask surgical consult for a Port-A-Cath if possible Outpatient follow up with Oncology after discharge Dietary Evaluation Review Comments: 1) Advance pt diet when medically feasible to a CCHO 75g diet 2) Continue current plan of care Expected Outcomes/Goals: 1) Pt diet to advance 2) F/U in 2-3 days Plan discussed with: Patient, Other (Dr Doan) AMNA ALVARADO MD Oct 22, 2024 16:23
--- NOTE | 2024-10-22 16:50 | DVHPNRES ---
Progress Note Date Seen: Oct 22, 2024 Resident Creating Document: KAMRAN MOTT RESIDENT Medical Necessity Reason Pt with a Central, PICC or Fol: No Subjective Review of Systems Patient is a 59-year-old male with past medical history of type 2 diabetes, dyslipidemia, hiatal hernia, who came due to abdominal pain. According to the patient for the last 2 weeks he has been experiencing right subcostal pain for which he was hospitalized 2 weeks ago as well. Patient notes that the pain is continuous, 8/10 at onset and 5/10 currently, stabbing in nature and worsening with breathing and movement. Patient notes he has been unable to sleep due to the pain. Patient notes that he is unable to see his PCP and notes that he has never had a colonoscopy. Patient is also status post cholecystectomy. CT abdomen pelvis showed concentric wall thickening of descending and sigmoid colon. Multiple hypodense masses throughout liver with the largest 1 measuring 7.1 cm. Left-sided perinephric stranding. Past surgical history: Cholecystectomy Home medications: Buspirone, escitalopram, metformin, Jardiance, atorvastatin, pioglitazone, hydroxyzine Past Hospitalization: 10/03/2024 for abdominal pain, vomiting, leukocytosis Social & Personal history: Patient lives with and son. Was recently laid off. Smokes 10 cigarettes per day for 40 years. Uses marijuana often. Denies using any other drugs. Allergies: Aspirin (swelling) Patient seen and examined at bedside. Patient is alert and oriented to time, place person and responding to all questions. Notes anxiety and insomnia. improved abdominal pain. Patient is scheduled to get a PermCath for chemotherapy today Objective vital signs Vital Sign Date Time Temp Pulse Resp B/P (MAP) Pulse Ox O2 Delivery O2 Flow Rate FiO2 10/22/24 13:00 97.9 74 20 126/63 (84) 99 97.9 10/22/24 08:10 Room Air* 0 21 Total Intake and Output 10/21/24 10/21/24 10/22/24 15:00 23:00 07:00 Intake Total 800 ml 250 ml Balance 800 ml 250 ml medications Current Medications Medications Dose Ordered Sig/Luciana Route Start Time Stop Time Status Last Admin Dose Admin Sodium Chloride 1,000 ml @ 75 mls/hr [id number] IV 10/18/24 23:00 10/22/24 07:00 75 MLS/HR Diagnostic Test (Pha) 1 strip ACHS 10/19/24 07:00 10/22/24 11:30 1 STRIP Insulin Human Regular HS SC 10/19/24 22:00 10/21/24 21:33 3 UNITS Insulin Human Regular AC SC 10/19/24 07:00 10/22/24 05:57 2 UNITS Dextrose 50 ml UD PRN IV 10/18/24 23:00 Pantoprazole Sodium 40 mg DAILY@0600 PO 10/19/24 06:00 10/22/24 05:52 40 MG Morphine Sulfate 2 mg Q4HPRN PRN IV 10/20/24 08:00 Ondansetron HCl 4 mg Q8HPRN PRN IV 10/20/24 08:00 Temazepam 15 mg HSPRN PRN PO 10/21/24 17:15 10/22/24 00:18 15 MG Examination General Appearance: Cooperative. Temporal wasting noted Head Exam: Normal inspection Neck Exam: Normal inspection. Non-tender. Normal alignment Pulmonary/Respiratory: Chest non-tender. Clear bilateral breath sounds, no crackles, no wheezing. Cardiovascular/Chest: Regular rate and rhythm. No murmurs. No JVD. Peripheral Pulses: 2+ Radial (R). 2+ Radial (L). 2+ Pedal (R). 2+ Pedal (L) Abdominal Exam: Normal bowel sounds. Soft. Right upper quadrant tenderness to palpation, no visible veins, Nontender. No hepatospenomegaly. No masses Ankle Exam: Negative ankle edema Lower extremities: Negative lower extremity edema Neuro/Mental Status: A&O x4. Coherent. Thoughts/Psych: Normal thought pattern. Appropriate mood and affect. Good judgement and insight Skin Exam: Normal inspection. Normal color. Warm. Dry. Mild yellowing of the sclera laboratory and microbiology Laboratory Tests 10/22/24 06:58 Test 10/22/24 06:58 Range/Units Serum Glucose 123 H 74-106 mg/dL Labs and/or images reviewed: Labs reviewed by me, Image(s) reviewed by me Problem List/Assessment/Plan Problem List/Assessment/Plan Acute intractable abdominal pain: Right subcostal pain with intractable nausea and vomiting Colitis, infectious versus inflammatory Multiple hypodense masses throughout liver, possible metastasis secondary to malignancy vs primary malignancy Mild transaminitis likely due to above Thrombocytosis - CT abdomen pelvis: Concentric wall thickening of the descending colon and sigmoid colon may reflect mild infectious/inflammatory colitis. Multiple hypodense masses are seen throughout the liver, largest measuring up to 7.1 cm in the right anterior lobe. Findings are highly suspicious for malignancy, recommend triple phase abdominal CT for further characterization. Left-sided perinephric stranding may reflect pyelonephritis. Recommend correlation with UA. - CEA 2931.49 - ordered a triple phase CT chest, abdomen, pelvis: Numerous masses in the liver, largest in the caudate lobe measuring 43 mm with some calcifications. Prominent right hilar lymph node. Prominent periportal lymph nodes. No other evidence of metastatic disease in the chest abdomen and pelvis. - head CT with contrast: No acute intracranial process - GI on board - IV NS at 75 cc/hour - IV ceftriaxone, IV metronidazole - IV Zofran - colonoscopy: Circumferential annular like masslike area in the mid to distal transverse colon suspicious for colon cancer for which multiple biopsies were obtained in the proximal distal and were marked with Marilyn ink. An adjacent smaller 2-3 mm polyp that was seen and removed completely via cold biopsy forceps. A large 4 cm polyp on a stalk seen in the sigmoid colon at 25 cm above the anal verge. This was removed completely via snare polypectomy from invasive stocking specimens were retrieved. [id number] sigmoid diverticular disease. 1+ internal hemorrhoids otherwise normal examination up to cecum and terminal ileum. - holding aspirin and NSAID for 7-10 days. - surgery on board, may go for surgery tomorrow as patient already bowel prepped - awaiting oncology eval Type 2 diabetes, Hb A1c 7.4 - moderate sliding scale insulin History of hiatal hernia - Protonix 40 mg p.o. daily Goals of care: Full code, discussed for >16 minutes on 10/19/2024 Plan discussed with patient and patient's at bedside for >20 minutes Plan discussed with Dr. Berg Plan discussed with: Patient, Other (RN) My Orders My Orders Orders - KAMRAN MOTT RESIDENT Procedure Category Date Status Time * Radiologist Consult CONS 10/22/24 Transmitted 14:29 Dietary Evaluation Review Comments: 1) Advance pt diet when medically feasible to a CCHO 75g diet 2) Continue current plan of care Expected Outcomes/Goals: 1) Pt diet to advance 2) F/U in 2-3 days Date of Service: Oct 22, 2024 Billing Provider: ANDREW BERG MD Common Visit Codes: [id number] INP/OBS CARE(HIGH) KAMRAN MOTT RESIDENT Oct 22, 2024 16:50 ANDREW BERG MD Oct 25, 2024 21:46
--- NOTE | 2024-10-22 17:09 | DVH ---
XY Insertion of Venous Cath, HISTORY: PORT PLACEMENT due to cancer PROCEDURE: Informed consent was obtained. The patient was placed supine on the interventional table. 1 gram of Ancef was given. A limited localization ultrasound of the right neck base was obtained. The right upper chest and neck base were prepped with chlorhexidine which was allowed to dry and draped in the usual sterile fashion. Time out was performed. With real-time ultrasound guidance, the interna l jugular vein was accessed with a micropuncture kit, and an image documenting patency sent to PACS. The planned skin tract and the port placement site were were infiltrated with lidocaine with epinephr ine. The subcutaneous pocket was created with sharp and blunt dissection. The catheter was tunneled t hrough the skin tract to the neck site. The [address] port was attached to the tubing flushed. The port was then sutured to the pocket floor with 2.0 Nylon sutures. The catheter was trimmed to desired length. The internal jugular vein entrance site was serially dilated and the catheter was placed thr ough a peel-a-way sheath. The port was flushed with heparinized saline and demonstrated satisfactory flow. The skin openings were sutured closed in 1 layers with Vicryl, as well as and Dermabond and the n sterile dressings applied. A post procedure image was obtained. No immediate complication was ident ified. DAP 290 FLUOROSCOPY TIME: 1.9 minutes. SEDATION: Dr. Dm Brewster was personally responsible for the administration of moderate sedation during the procedure performed, including the use of an independent trained observer who had no other duties during the procedure. The drugs utilized were IV fentanyl and versed (see nursing log for details). The total time of supervision by the attending physician was approximately 45 minutes. FINDINGS: Widely patent right internal jugular vein. Post procedure image demonstrates [id number] r in the right upper chest with the tip RA. IMPRESSION: Successful placement of 8 Swedish x 23 cm right chest [id number].
[2024-10-22] MEDS: POTASSIUM EFFERVESENT TAB 25 MEQ PO ONE (18:17)
[2024-10-23 01:00] VITALS: BP 150/72; PULSE 86; RESP 18; TEMP 98.5; O2SAT 99
[2024-10-23 05:00] VITALS: BP 136/73; PULSE 79; RESP 18; TEMP 98.7; O2SAT 97
[2024-10-23 06:57] LABS: Basophils # (auto) 0 10 ^3/uL (0-0.2); Lymphocytes # (auto) 1.5 10 ^3/uL (0.4-5.4); Monocytes # (auto) 1.1 10 ^3/uL (0-1.3); White Blood Cell 7.7 10^3/uL (4.4-10.8)
[2024-10-23 07:00] LABS: Basophils % (auto) 0.5 % (0.0-2.0); Eosinophils # (auto) 0.2 10 ^3/uL (0-0.8); Eosinophils % (auto) 2.2 % (0.0-7.0); Hemoglobin 10.8 g/dL (13.5-17.5); Lymphocytes % (auto) 18.8 % (10.0-50.0); Mean Corpuscular Hemoglobin 25.6 pg (28.0-32.0); Mean Corpuscular Hgb Conc. 32.7 g/dL (32.0-36.0); Mean Corpuscular Volume 78.3 fL (80.0-100.0); Monocytes % (auto) 13.8 % (0.0-12.0); Neutrophils % (auto) 64.7 % (37.0-80.0); Platelet Count (auto) 412 10^3/uL (140-450); Red Blood Cells 4.21 10^6/uL (4.5-5.90); Red Cell Distribution Width 16.1 % (11.8-14.3)
[2024-10-23 08:00] VITALS: PULSE 81; RESP 16; O2SAT 97
[2024-10-23 08:36] LABS: Chloride 103 mmol/L (98-107); Potassium 3.6 mmol/L (3.5-5.1); Sodium 138 mmol/L (136-145)
[2024-10-23 08:37] LABS: Anion Gap 7 (5-15); Calcium 9.4 mg/dL (8.7-10.4); Carbon Dioxide 28 mmol/L (20-31)
[2024-10-23 08:42] LABS: BUN/Creatinine Ratio 8.5 (10.0-20.0)
[2024-10-23 08:58] VITALS: BP 129/70; PULSE 81; RESP 17; TEMP 98.7; O2SAT 97
[2024-10-23 09:09] LABS: Blood Urea Nitrogen 6 mg/dL (9-23); Glucose 112 mg/dL (74-106)
--- NOTE | 2024-10-23 09:22 | DVHPN2 ---
Progress Note Date Seen: Oct 23, 2024 Medical Necessity Reason Pt with a Central, PICC or Fol: No Objective vital signs Vital Sign Date Time Temp Pulse Resp B/P (MAP) Pulse Ox O2 Delivery O2 Flow Rate FiO2 10/23/24 08:58 98.7 81 17 129/70 (89) 97 98.7 10/22/24 20:00 Room Air* 0 21 Total Intake and Output 10/22/24 10/22/24 10/23/24 15:00 23:00 07:00 Intake Total 450 ml 300 ml 1400 ml Output Total 740 ml Balance 450 ml -440 ml 1400 ml medications Current Medications Medications Dose Ordered Sig/Luciana Route Start Time Stop Time Status Last Admin Dose Admin Sodium Chloride 1,000 ml @ 75 mls/hr [id number] IV 10/18/24 23:00 10/22/24 20:52 75 MLS/HR Diagnostic Test (Pha) 1 strip ACHS 10/19/24 07:00 10/23/24 06:03 1 STRIP Insulin Human Regular HS SC 10/19/24 22:00 10/22/24 21:03 4 UNITS Insulin Human Regular AC SC 10/19/24 07:00 10/22/24 05:57 2 UNITS Dextrose 50 ml UD PRN IV 10/18/24 23:00 Pantoprazole Sodium 40 mg DAILY@0600 PO 10/19/24 06:00 10/23/24 05:37 40 MG Morphine Sulfate 2 mg Q4HPRN PRN IV 10/20/24 08:00 Ondansetron HCl 4 mg Q8HPRN PRN IV 10/20/24 08:00 Temazepam 15 mg HSPRN PRN PO 10/21/24 17:15 10/23/24 00:36 15 MG laboratory and microbiology Laboratory Tests 10/23/24 08:22 10/23/24 05:47 Test 10/23/24 08:22 Range/Units Serum Glucose 112 H 74-106 mg/dL Problem List/Assessment/Plan Problem List/Assessment/Plan AFEBRILE VSS ABD SOFT PAIN LESS COLONOSCOPY DONE CONSIDER SURGERY INDICATED BASED ON ONGOING EVAL CONSIDER ONCOLOGY EVAL NOTED AWAIT PATH PORTOCATH PLACEMENT INDICATED Plan discussed with: Patient Dietary Evaluation Review Comments: 1) Advance pt diet when medically feasible to a CCHO 75g diet 2) Continue current plan of care Expected Outcomes/Goals: 1) Pt diet to advance 2) F/U in 2-3 days DELILAH ALVARADO MD Oct 23, 2024 09:22
[2024-10-23 13:00] VITALS: BP 140/71; PULSE 81; RESP 17; TEMP 98; O2SAT 99
--- NOTE | 2024-10-23 13:52 | DVHDSRES ---
Discharge Summary Date of Admission Resident Creating Document: KAMRAN MOTT RESIDENT Oct 18, 2024 at 22:44 Date of Discharge: Oct 21, 2024 Admitting Diagnosis Right lower quadrant pain Labs/Diagnostic Data: Laboratory Results Test 10/23/24 11:06 10/23/24 08:22 10/23/24 05:47 10/19/24 04:30 POC Glucose 238 mg/dl (70-106) Sodium Level 138 mmol/L (136-145) Potassium Level 3.6 mmol/L (3.5-5.1) Chloride Level 103 mmol/L (98-107) Carbon Dioxide Level 28 mmol/L (20-31) Anion Gap 7 (5-15) Blood Urea Nitrogen 6 mg/dL (9-23) Creatinine 0.71 mg/dL (0.700-1.30) Glomerular Filtration Rate Calc 106 mL/min (>90) BUN/Creatinine Ratio 8.5 (10.0-20.0) Serum Glucose 112 mg/dL (74-106) Calcium Level 9.4 mg/dL (8.7-10.4) White Blood Count 7.7 10^3/uL (4.4-10.8) Red Blood Count 4.21 10^6/uL (4.5-5.90) Hemoglobin 10.8 g/dL (13.5-17.5) Hematocrit 33.0 % (41.0-53.0) Mean Corpuscular Volume 78.3 fL (80.0-100.0) Mean Corpuscular Hemoglobin 25.6 pg (28.0-32.0) Mean Corpuscular Hemoglobin Concent 32.7 g/dL (32.0-36.0) Red Cell Distribution Width 16.1 % (11.8-14.3) Platelet Count 412 10^3/uL (140-450) Mean Platelet Volume 7.5 fL (6.9-10.8) Neutrophils (%) (Auto) 64.7 % (37.0-80.0) Lymphocytes (%) (Auto) 18.8 % (10.0-50.0) Monocytes (%) (Auto) 13.8 % (0.0-12.0) Eosinophils (%) (Auto) 2.2 % (0.0-7.0) Basophils (%) (Auto) 0.5 % (0.0-2.0) Neutrophils # (Auto) 5.0 10 ^3/uL (1.6-8.6) Lymphocytes # (Auto) 1.5 10 ^3/uL (0.4-5.4) Monocytes # (Auto) 1.1 10 ^3/uL (0-1.3) Eosinophils # (Auto) 0.2 10 ^3/uL (0-0.8) Basophils # (Auto) 0 10 ^3/uL (0-0.2) Nucleated Red Blood Cells 0.0 % Prothrombin Time 11.4 sec (9.3-11.8) Prothrombin Time INR 1.08 (0.9-1.15) Activated Partial Thromboplast Time 35.3 SEC (24.5-34.5) Test 10/18/24 23:56 10/18/24 17:00 10/18/24 16:37 Tumor Marker Alpha Fetoprotein 1.9 ng/mL (0.0-8.4) Carcinoembryonic Antigen 2931.49 ng/mL (<=5.0) CA 19-9 Antigen 41 U/mL (0-35) Hepatitis A Antibody Total Positive (Negative) Hepatitis B Surface Antigen Negative (Negative) Hepatitis B Surface Antibody Negative (Negative) Hepatitis B Core Total Antibody Negative (Negative) Hepatitis C Antibody Negative (Negative) Total Bilirubin 1.0 mg/dL (0.2-1.0) Aspartate Amino Transferase (AST) 55 U/L (13-40) Alanine Aminotransferase (ALT) 25 U/L (7-40) Alkaline Phosphatase 384 U/L (46-116) Total Protein 7.7 g/dL (5.7-8.2) Albumin 4.6 g/dL (3.2-4.8) Urine Color Yellow (Yellow) Urine Clarity Clear (Clear) Urine pH 6.0 (5.0-9.0) Urine Specific [place] 1.011 (1.001-1.035) Urine Protein 1+ (Negative) Urine Ketones Negative (Negative) Urine Blood Negative /uL (Negative) Urine Nitrite Negative (Negative) Urine Bilirubin Negative (Negative) Urine Urobilinogen 2 mg/dL (Negative) Urine Leukocyte Esterase Negative /uL (Negative) Urine RBC 3 /hpf (0 - 3) Urine WBC 4 /hpf (0 - 3) Urine Squamous Epithelial Cells None seen /hpf (<5) Urine Bacteria None seen /hpf (None Seen) Urine Glucose 1+ mg/dL (Normal) Urine Opiates Screen Pos (NEGATIVE) Urine Fentanyl Screen Neg (NEGATIVE) Urine Barbiturates Screen Neg (NEGATIVE) Urine Phencyclidine Screen Neg (NEGATIVE) Urine Amphetamines Screen Neg (NEGATIVE) Urine Benzodiazepines Screen Neg (NEGATIVE) Urine Cocaine Screen Neg (NEGATIVE) Urine Cannabinoids Screen Pos (NEGATIVE) Other Laboratory Tests 10/23/24 08:22 10/23/24 05:47 Brief Hx & Hospital Course: Patient is a 59-year-old male with past medical history of type 2 diabetes, dyslipidemia, hiatal hernia, who came due to abdominal pain. According to the patient for the last 2 weeks he has been experiencing right subcostal pain for which he was hospitalized 2 weeks ago as well. Patient notes that the pain is continuous, 8/10 at onset and 5/10 currently, stabbing in nature and worsening with breathing and movement. Patient notes he has been unable to sleep due to the pain. Patient notes that he is unable to see his PCP and notes that he has never had a colonoscopy. Patient is also status post cholecystectomy. CT abdomen pelvis showed concentric wall thickening of descending and sigmoid colon. Multiple hypodense masses throughout liver with the largest 1 measuring 7.1 cm. Left-sided perinephric stranding. Hospital course: CT abdomen pelvis showed concentric wall thickening of the descending colon and sigmoid colon may reflect mild infectious/inflammatory colitis. Multiple hypodense masses are seen throughout the liver, largest measuring up to 7.1 cm in the right anterior lobe. Findings are highly suspicious for malignancy, recommend triple phase abdominal CT for further characterization. Left-sided perinephric stranding may reflect pyelonephritis. Recommend correlation with UA CEA was noted to be 2931.49. A triple phase CT chest abdomen pelvis showed numerous masses in the liver, largest in the caudate lobe measuring 43 mm with some calcifications. Prominent right hilar lymph node. Prominent periportal lymph node. No other evidence of metastatic disease in the chest abdomen and pelvis was noted. Head CT with contrast showed no acute intracranial process. GI was taken on board and oncology was also consulted. Patient underwent colonoscopy which showed circumferential annular like masslike area in the mid to distal transverse colon suspicious for colon cancer for which multiple biopsies were obtained in the proximal distal were marked with Marilyn ink. An adjacent smaller 2-3 mm polyp that was seen and removed completely via cold biopsy forceps. A large 4 cm polyp on a stalk seen in the sigmoid colon at 25 cm above the anal verge. This was removed completely via snare polypectomy from invasive stocking specimens were retrieved. [id number] sigmoid diverticular disease. 1+ internal hemorrhoids otherwise normal examination up to the cecum and terminal ileum. Patient was continued on IV NS at 75 cc/hour, IV ceftriaxone for possible UTI, IV metronidazole, IV Zofran were as aspirin and NSAIDs were held. Oncology evaluation was completed, patient underwent Port-A-Cath placement for systemic chemotherapy. Due to no obstruction or significant bleeding symptoms, surgery on the colon was not recommended at this moment. Patient was instructed to follow up with Oncology in the outpatient clinic at his earliest. His hospital course was uncomplicated. General Appearance: Cooperative. Temporal wasting noted Head Exam: Normal inspection Neck Exam: Normal inspection. Non-tender. Normal alignment Pulmonary/Respiratory: Chest non-tender. Clear bilateral breath sounds, no crackles, no wheezing. Cardiovascular/Chest: Regular rate and rhythm. No murmurs. No JVD. Peripheral Pulses: 2+ Radial (R). 2+ Radial (L). 2+ Pedal (R). 2+ Pedal (L) Abdominal Exam: Normal bowel sounds. Soft. Right upper quadrant tenderness to palpation, no visible veins, Nontender. No hepatospenomegaly. No masses Ankle Exam: Negative ankle edema Lower extremities: Negative lower extremity edema Neuro/Mental Status: A&O x4. Coherent. Thoughts/Psych: Normal thought pattern. Appropriate mood and affect. Good judgement and insight Skin Exam: Normal inspection. Normal color. Warm. Dry. Mild yellowing of the sclera Operations or Procedures Operative Report Operative Report DATE OF OPERATION: 10/20/24 PROCEDURE: Colonoscopy snare polypectomy, biopsy and Marilyn ink tattoo. PREOPERATIVE INDICATION: The patient is a 59 -year-old male undergoing colonoscopy for evaluation of abnormal finding GI tract imaging rule out colon cancer POSTOPERATIVE DIAGNOSES: 1. Patient had a circumferential annular masslike area in the mid to distal transverse colon suspicious for colon cancer from which multiple biopsies were obtained in the proximal and distal end were marked with Marilyn ink 2. There was an adjacent smaller 2-3 mm polyp that was seen and removed completely via cold biopsy forceps 3. Patient had a large 4 cm polyp on a stalk seen in the sigmoid colon at 25 cm above the anal verge. This was removed completely via snare polypectomy from the base of the stalk and the specimen was retrieved 4. [id number] sigmoid diverticular disease 5. 1+ internal hemorrhoids otherwise normal examination up to the cecum and terminal ileum PROCEDURE PERFORMED BY: Ashly Livingston M.D. SCOPE: Olympus videocolonoscope. ASA CLASS: 2 PREOPERATIVE MEDICATIONS: MAC sedation; Nikolas Berger PROCEDURE IN DETAIL: After obtaining an informed consent, the patient was placed on left lateral decubitus position. He was then sedated with the above medications. A rectal examination was performed that was normal. The colonoscope was then passed through the anus into the rectosigmoid and through the descending, transverse, and ascending colon up to the cecum with visualization of the appendiceal orifice, base of the cecum and the ileocecal valve. The colonoscope was then withdrawn. The distal 5-10 cm of the terminal ileum were normal. Patient had a mid transverse colon mass which was circumferential semi annular with central ulceration Multiple biopsies were obtained and the proximal and distal margins of the mass area were injected Marilyn ink Currently this area was only partially narrowed but not obstructed. Patient had another smaller a distal transverse colon 2-3 mm polyp This was removed completely via cold biopsy forceps. Patient had sigmoid diverticular disease. In the sigmoid colon at 25 cm above the anal verge the patient had a large 4 cm polyp on a stalk. This was removed completely via snare polypectomy from the base of the stalk and the specimen was retrieved On retroflexion and straight on view the patient had 1+ internal hemorrhoids The patient tolerated the procedure well without difficulty. WITHDRAWAL TIME: 15 minutes QUALITY OF THE PREP: Elfrida Bowel Prep score: 8. COMPLICATIONS : None SPECIMENS: Transverse colon mass biopsies Distal transverse colon polyp Large sigmoid polyp DISPOSITION: Transfer back to the floor Stable PLAN: 1. Await biopsy results, consult Oncology 2. Start with clear liquid diet advance to full liquid 3. Hold aspirin NSAIDs blood thinners for 7-10 days 4. Patient will likely need outpatient chemo therapy and treatment 5. Repeat colonoscopy in one year pending his clinical progress and outcome Exam: CT CT CHST AB PLV W CON-ORAL IV History: Malignancy Comparison Study: None available at time of dictation. Technique: Multidetector spiral CT of the chest, abdomen and pelvis was performed from lower neck to pubic symphysis with and without contrast. 100 cc Omni 300 intravenous contrast was administered during this examination. Multi phasic imaging was obtained. Axial, coronal and sagittal multiplanar reformats were performed by the technologist on a separate workstation. Radiation Dose : Chest/Abdomen/Pelvis: CTDIvol 49 mGy, DLP 2620.45 mGy*cm. Findings: Lower neck: Normal thyroid. Lungs: No focal consolidation, pleural effusion or pneumothorax. Cystic structure posterior to the trachea in the superior mediastinum could represent a tracheal diverticulum. Heart/Vascular Structures: Normal heart size. No pericardial effusion. Lymph Nodes: Right hilar lymph node measuring up to 10 mm. Pleura: No pleural effusion or significant pneumothorax. Liver: Numerous hypoenhancing masses throughout the liver. Largest mass in the caudate lobe measures up to 83 mm and demonstrates calcification. Gallbladder and biliary Tree: Gallbladder is surgically absent. Spleen: Unremarkable Pancreas: The pancreas is normal in appearance without focal lesions or abnormal enhancement. Adrenal Glands: Unremarkable Kidneys: Subcentimeter left renal cysts. Left perinephric stranding No hydronephrosis or nephrolithiasis. Bladder: Unremarkable Bowel: The stomach is grossly normal in appearance. Small bowel and colon are normal in caliber and distribution. Normal appendix is visualized in the right lower quadrant without findings of appendicitis. Wall thickening of the descending colon is again noted. Ascites: Absent Lymphadenopathy: Mildly prominent periportal lymph nodes are noted. Abdominal wall and Mesentery: Fat containing left inguinal hernia. Vasculature: The visualized abdominal aorta is normal in size and caliber. Abdominal and pelvic vessels demonstrate normal enhancement. Pelvic Organs: Prostate is enlarged. Musculoskeletal: No aggressive focal bony lesions, acute fractures or dislocation. IMPRESSION: 1. Numerous masses in the liver, largest in the caudate lobe measures up to 83 mm with some calcification. Prominent right hilar lymph node. Prominent periportal lymph nodes. No other evidence of metastatic disease in the chest abdomen and pelvis. Recommend CT-guided biopsy of the most accessible hepatic mass. Consider further evaluation with PET-CT. HS:Y RING PHYSICIAN: KAMRAN MOTT RESIDENT PROCEDURE(s): HDWCT - HEAD CONTRAST ONLY REASON: Malignancy ORDER NUMBER(s): [id number], ACCESSION NUMBER(s): [id number] CT HEAD WITH CONTRAST CLINICAL HISTORY: Malignancy. TECHNIQUE: Multiple contiguous axial images of the head with contrast. Coronal and sagittal reformats. 100 cc of Omnipaque 300 contrast was injected intravenously.Radiation Dose Information: CT Dose: CTDI volume is 53.99 mGy. Dose-length product is 865.61 mGy*cm Comparison: None. FINDINGS: There is no evidence of intracranial hemorrhage, mass, mass effect or midline shift. There is no hydrocephalus or extra-axial fluid collection. There is no pathologic focus of enhancement. There is a small chronic lacunar infarct in the right caudate head region.. The reynolds-white matter differentiation appears maintained. The visualized paranasal sinuses and mastoid air cells are clear. The osseous structures appear unremarkable. IMPRESSION: There is no acute intracranial process. Condition at Discharge: Fair Final Diagnosis/Problems List Acute intractable abdominal pain with intractable nausea and vomiting Metastatic colon cancer with metastasis to the liver Colitis, infectious versus inflammatory Mild transaminitis Thrombocytosis Type 2 diabetes History of hiatal hernia Discharge Disposition: Home Discharge Instruct/Medications Diet: Consistent carbohydrate Activity: See Comment Follow Up/Referral: Please follow up with Oncology in the outpatient clinic for chemotherapy as soon as possible Please follow up with discharge clinic in 1-2 weeks Discharge Statement: "Patient was advised to return to the ER or call 911 if any headaches, dizziness, shortness of breath, chest pain, abdominal pain, bleeding, fevers, or worsening of medical condition. Patient was counseled about treatment plan, medications, possible side effects, patientverbalized understanding. All questions were answered to the best of my ability. This discharge took greater then 30 minutes in planning, reviewing documentation, counseling the patient, and discussing with other team members." ASSESSMENT ASSESSMENT Assessment Acute intractable abdominal pain with intractable nausea and vomiting Metastatic colon cancer with metastasis to the liver Colitis, infectious versus inflammatory Mild transaminitis Thrombocytosis Type 2 diabetes History of hiatal hernia Date of Service: Oct 21, 2024 Billing Provider: ANDREW BERG MD Common Visit Codes: 21657-RUT/OBS DISCH DAY >30min KAMRAN MOTT Oct 23, 2024 13:52 ANDREW BERG MD Oct 25, 2024 21:46
[2024-10-23 14:48] VITALS: BP 140/71; PULSE 81; RESP 17; TEMP 98; O2SAT 99
== END 2024-10-23 15:27 | disposition home or self-care (01) | DRG 244 ==
LOC: ER 16:31 → OVERFLOW 22:44 → EAST 10-19 18:46
PROVIDERS: ADMIT Student in an Organized Health Care Education/Training Program; ATTEND Student in an Organized Health Care Education/Training Program
PROC: 0DBN8ZZ Excision of Sigmoid Colon, Via Natural or Artificial Opening Endoscopic (ICD-10-PCS; 2024-10-20)
PROC: 0DBL8ZZ Excision of Transverse Colon, Via Natural or Artificial Opening Endoscopic (ICD-10-PCS; 2024-10-20)
PROC: 0DBL8ZX Excision of Transverse Colon, Via Natural or Artificial Opening Endoscopic, Diagnostic (ICD-10-PCS; principal; 2024-10-20 12:39)
PROC: 0JH63XZ Insertion of Tunneled Vascular Access Device into Chest Subcutaneous Tissue and Fascia, Percutaneous Approach (ICD-10-PCS; 2024-10-22)
PROC: 02H633Z Insertion of Infusion Device into Right Atrium, Percutaneous Approach (ICD-10-PCS; 2024-10-22)
PROC: B5181ZA Fluoroscopy of Superior Vena Cava using Low Osmolar Contrast, Guidance (ICD-10-PCS; 2024-10-22)
PROC: B548ZZA Ultrasonography of Superior Vena Cava, Guidance (ICD-10-PCS; 2024-10-22)
DX: K57.30 Diverticulosis of large intestine without perforation or abscess without bleeding (principal); C78.7 Secondary malignant neoplasm of liver and intrahepatic bile duct; C18.4 Malignant neoplasm of transverse colon; A09 Infectious gastroenteritis and colitis, unspecified; D75.839 Thrombocytosis, unspecified; E11.9 Type 2 diabetes mellitus without complications; E78.5 Hyperlipidemia, unspecified; R74.01 Elevation of levels of liver transaminase levels; I10 Essential (primary) hypertension; F17.210 Nicotine dependence, cigarettes, uncomplicated; K64.8 Other hemorrhoids; Z90.49 Acquired absence of other specified parts of digestive tract; Z88.6 Allergy status to analgesic agent; Z56.0 Unemployment, unspecified; K63.5 Polyp of colon
CPT/HCPCS: 36415; 36558; 70460; 71045; 71260; 74177; 77001; 80048; 80053; 80307; 81001; 82105; 82378; 82962; 85025; 85610; 85730; 86301; 86704; 86706; 86708; 86803; 86850; 86900; 86901; 87340; 99152; C1894; G0378; J1815; J2003; J2250; J2405; J2470; J2704; J3480; J3490

== ENCOUNTER 2024-11-01 14:14 | Emergency (ER) | payer MEDICAID ==
[~2024-11-01] VITALS: Ht 175.3 cm; Wt 70.9 kg
[~2024-11-01 14:14] MED LIST changes: -ESCI1TAB36 PO; +HYDR10SY18 PO; +TEMA30CA PO; -ZOFR4T PO
--- NOTE | 2024-11-01 14:44 | ECG ---
[facility] Test Date: 2024-11-01 Test Time: 14:24:19 Pat Name: BAILEY JOHNS Department: ER Room: Gender: M Landscape Crew Member: : [id number] Requested By: CHRISTPOHER COLORADO Order Number: [id number] Reading MD: Jd Gómez Measurements Intervals [place] Rate: 105 P: 45 UT: 142 QRS: 34 QRSD: 97 T: -7 QT: 345 QTc: 457 Interpretive Statements Sinus tachycardia Probable left atrial enlargement Left ventricular hypertrophy Baseline wander in lead(s) I,II,aVR,aVF,V1 Electronically Signed On 11-04-2024 16:31:59 PST by Jd Gómez Please click the below link to view image of tracing.
--- NOTE | 2024-11-01 15:15 | ED.PDOC ---
History of Present Illness HPI Comments 59 y.o male sent to the ED by PCP today for an evaluation of tachycardia. Patient reports recent hospital admission here, was diagnosed with Metastatic colon cancer with metastasis to the liver, was discharged and had a follow up appointment today with PCP who noted an elevated heart rate via EKG and vital signs taken at the office. Patient is asymptomatic at this time, states his PCP told him he looked dehydrated and needed fluids. Patient's heart rate ranges between 90-110's upon ED arrival. Patient does mention recent history of low potassium levels and has increased his potassium intake in his diet. Chief Complaint: Abnormal LAB's Time Seen by MD: 15:02 Primary Care Provider: Purnima Reviewed Notes: Nurses Notes, Medications, Allergies Allergies: Coded Allergies: Aspirin (Verified Allergy, Unknown, 10/02/24) Home Meds Reported Medications Temazepam (Temazepam) 30 Mg Cap, 1 CAP PO QPM, #30 CAP 1 Refill 10/19/24 Hydroxyzine Hcl (Hydroxyzine Hcl) 10 Mg/5 Ml Syp, 10 MG PO, SYP 10/19/24 Buspirone HCl (Buspirone HCl) 10 Mg Tab, 1 TAB PO TID 10/03/24 Metformin Hydrochloride (Metformin Hcl) 500 Mg Tab, BID 02/05/13 Information Source: Patient Mode of Arrival: Wheelchair Severity: Mild Timing: Hours Duration: Since onset Past Medical History PAST MEDICAL HISTORY: Cancer (Metastatic colon cancer with metastasis to the liver), DM, High Lipids, HTN Surgical History: Cholecystectomy Family History Family History: Unknown Social History Smoker: Cigarettes Alcohol: Occasionally Drugs: Marijuana Lives In: Home Constitutional: denies: chills, diaphoresis, fatigue, fever, malaise, sweats, weakness, others EENTM: denies: blurred vision, double vision, ear bleeding, ear discharge, ear drainage, ear pain, ear ringing, eye pain, eye redness, hearing loss, mouth pain, mouth swelling, nasal discharge, nose bleeding, nose congestion, nose pain, photophobia, tearing, throat pain, throat swelling, voice changes, others Respiratory: denies: cough, hemoptysis, orthopnea, SOB at rest, shortness of breath, SOB with excertion, stridor, wheezing, others Cardiovascular: denies: chest pain, dizzy spells, diaphoresis, Dyspnea on exertion, edema, irregular heart beat, left arm pain, lightheadedness, palpitations, PND, syncope, others Gastrointestinal: denies: abdomen distended, abdominal pain, blood streaked bowels, constipated, diarrhea, dysphagia, difficulty swallowing, hematemesis, melena, nausea, poor appetite, poor fluid intake, rectal bleeding, rectal pain, vomiting, others Genitourinary: denies: burning, dysuria, flank pain, frequency, hematuria, incontinence, penile discharge, penile sore, pain, testicle pain, testicle swelling, urgency, others Neurological: denies: dizziness, fainting, headache, left sided numbness, left sided weakness, numbness, paresthesia, pre-existing deficit, right sided numbness, right sided weakness, seizure, speech problems, tingling, tremors, weakness, others Musculoskeletal: denies: back pain, gout, joint pain, joint swelling, muscle pain, muscle stiffness, neck pain, others Integumetry: denies: bruises, change in color, change in hair/nails, dryness, laceration, lesions, lumps, rash, wounds, others Allergic/Immunocompromised: denies: Difficulty Healing, Frequent Infections, Hives, Itching, others Hematologic/Lymphatic: denies: anemia, blood clots, easy bleeding, easy bruising, swollen glands, others Endocrine: denies: excessive hunger, excessive sweating, excessive thirst, excessive urination, flushing, intolerance to cold, intolerance to heat, unexplained weight gain, unexplained weight loss, others Psychiatric: denies: anxiety, bipolar disorder, depression, hopeless, panic disorder, schizophrenia, sleepless, suicidal, others All Other Systems: Reviewed and Negative Physical Exam General Appearance: No Apparent Distress HEENT: Normal ENT Inspection, Pharynx Normal, TMs Normal Neck: Full Range of Motion, Non-Tender, Normal, Normal Inspection Respiratory: Chest Non-Tender, Lungs Clear, No Accessory Muscle Use, No Respiratory Distress, Normal Breath Sounds, Other (The patient has a Port-A-Cath to the right chest) Cardiovascular: No Edema, No JVD, No Murmur, No Gallop, Tachycardia Breast Exam: Deferred Gastrointestinal: No Organomegaly, Non Tender, No Pulsatile Mass, Normal Bowel Sounds, Soft Genitalia: Deferred Pelvic: Deferred Rectal: Deferred Extremities: No calf tenderness, Normal capillary refill, Normal inspection, Normal range of motion, Non-tender, No pedal edema Musculoskeletal : Apperance: Normal Neurologic: Alert, technical administrative assistant II-XII nml as Tested, No Motor Deficits, Normal Affect, Normal Mood, No Sensory Deficits Cerebellar Function: Normal Reflexes: Normal Skin: Dry, Normal Color, Warm Lymphatic: No Adenopathy Was a procedure done? Was a procedure done?: No Differential Dx Considerations may include: Dehydration, Electrolyte imbalance, Viral syndrome X-Ray, Labs, Meds, VS Vital Signs Date Time Temp Pulse Resp B/P (MAP) Pulse Ox O2 Delivery O2 Flow Rate FiO2 11/01/24 14:36 105 11/01/24 14:32 97.8 97 18 152/77 (102) 97 Lab Test 11/01/24 15:12 Range/Units Sodium Level 135 L 136-145 mmol/L Potassium Level 4.7 3.5-5.1 mmol/L Chloride Level 100 98-107 mmol/L Carbon Dioxide Level 27 20-31 mmol/L Anion Gap 8 5-15 Blood Urea Nitrogen 16 9-23 mg/dL Creatinine 0.77 0.700-1.30 mg/dL Glomerular Filtration Rate Calc 104 >90 mL/min BUN/Creatinine Ratio 20.8 H 10.0-20.0 Serum Glucose 240 H 74-106 mg/dL Calcium Level 10.1 8.7-10.4 mg/dL The patient's chemistry panel is within normal limits The patient is being discharged and will follow up with the primary care doctor The patient will return to the emergency department's the condition worsens The patient understands and agrees with the management. Time of 1ST Reevaluation: 15:10 Reevaluation 1ST: Unchanged Time of 2ND Reevaluation: 15:46 Reevaluation 2ND: Improved Patient Education/Counseling: Diagnosis, Treatment, Prognosis, Need For Follow Up Family Education/Counseling: Diagnosis, Treatment, Prognosis, Need For Follow Up Departure 1 Departure Time of Disposition: 15:46 Impression: Primary Impression: Metastatic carcinoma to liver Additional Impression: Generalized weakness Disposition: 01 HOME / SELF CARE / HOMELESS Condition: Fair Discharged With: Self Critical Care Note Critical Care Time?: No Stability Stability form required: No I personally scribed for CHRISTOPHER COLORADO MD ([email or web address]) on 11/01/24 at 15:15. Electronically submitted by Daniela Flores ([facility]). CHRISTOPHER COLORADO MD Nov 01, 2024 15:15
[2024-11-01 15:32] LABS: Chloride 100 mmol/L (98-107); Potassium 4.7 mmol/L (3.5-5.1)
[2024-11-01 15:33] LABS: Anion Gap 8 (5-15); Calcium 10.1 mg/dL (8.7-10.4); Carbon Dioxide 27 mmol/L (20-31); Sodium 135 mmol/L (136-145)
[2024-11-01 15:38] LABS: BUN/Creatinine Ratio 20.8 (10.0-20.0); Blood Urea Nitrogen 16 mg/dL (9-23); Glucose 240 mg/dL (74-106)
[2024-11-01 16:19] VITALS: BP 157/83; PULSE 20; RESP 20; O2SAT 98
== END 2024-11-01 16:21 | disposition home or self-care (01) ==
LOC: ER 14:14
DX: C78.7 Secondary malignant neoplasm of liver and intrahepatic bile duct (principal); R53.1 Weakness; I10 Essential (primary) hypertension; E11.9 Type 2 diabetes mellitus without complications; F17.210 Nicotine dependence, cigarettes, uncomplicated; Z79.84 Long term (current) use of oral hypoglycemic drugs; Z79.899 Other long term (current) drug therapy; Z88.6 Allergy status to analgesic agent; Z90.49 Acquired absence of other specified parts of digestive tract
CPT/HCPCS: 36415; 80048; 93005

== ENCOUNTER 2024-11-22 16:39 | Emergency (ER) | payer MEDICAID ==
[~2024-11-22] VITALS: Ht 175.3 cm; Wt 70.6 kg
[~2024-11-22 16:39] MED LIST changes: -POTA-180 PO
[2024-11-22] MEDS ORDERED: POTASSIUM CHL 20MEQ/100ML 100 ML IV ONE (17:00)
[2024-11-22 17:21] LABS: Basophils # (auto) 0.1 10 ^3/uL (0-0.2); Basophils % (auto) 0.7 % (0.0-2.0); Eosinophils # (auto) 0 10 ^3/uL (0-0.8); Eosinophils % (auto) 0.3 % (0.0-7.0); Hematocrit 34.5 % (41.0-53.0); Lymphocytes # (auto) 1.9 10 ^3/uL (0.4-5.4); Lymphocytes % (auto) 15.5 % (10.0-50.0); Mean Corpuscular Hemoglobin 23.8 pg (28.0-32.0); Mean Corpuscular Hgb Conc. 31.7 g/dL (32.0-36.0); Mean Corpuscular Volume 75.1 fL (80.0-100.0); Monocytes # (auto) 1.2 10 ^3/uL (0-1.3); Monocytes % (auto) 9.5 % (0.0-12.0); Neutrophils # (auto) 9.1 10 ^3/uL (1.6-8.6); Platelet Count (auto) 687 10^3/uL (140-450); Red Cell Distribution Width 18.7 % (11.8-14.3); White Blood Cell 12.3 10^3/uL (4.4-10.8)
[2024-11-22 17:52] LABS: Alanine Aminotransferase 23 U/L (7-40); Albumin 4.2 g/dL (3.2-4.8); Anion Gap 10 (5-15); Aspartate Aminotransferase 39 U/L (13-40); BUN/Creatinine Ratio 11.8 (10.0-20.0); Bilirubin, Total 0.6 mg/dL (0.2-1.0); Calcium 9.6 mg/dL (8.7-10.4); Carbon Dioxide 28 mmol/L (20-31)
[2024-11-22 17:53] LABS: Total Protein 7.4 g/dL (5.7-8.2)
[2024-11-22 17:57] LABS: Alkaline Phosphatase 311 U/L (46-116); Blood Urea Nitrogen 8 mg/dL (9-23); Chloride 94 mmol/L (98-107); Glucose 234 mg/dL (74-106); Potassium 2.8 mmol/L (3.5-5.1); Sodium 132 mmol/L (136-145)
[2024-11-22] MEDS ORDERED: POTA-180 PO (20:54)
--- NOTE | 2024-11-22 20:55 | ED.PDOC ---
History of Present Illness HPI Comments 59-year-old male states he was seen by primary care doctor advised to come into the emergency department. Patient had lab work done today which showed his potassium being 2.8. Patient reports a history of colorectal cancer which has been test x2 liver. Patient states he was labs have all has been elevated and off for the last two months that is how it came to the diagnosis. The drop-in potassium is a new finding. Patient states he does have appointment with primary care doctor tomorrow. Chief Complaint: Abnormal LAB's Time Seen by MD: 16:53 Primary Care Provider: marisel Reviewed Notes: Nurses Notes Allergies: Coded Allergies: Aspirin (Verified Allergy, Unknown, 10/02/24) Home Meds Reported Medications Temazepam (Temazepam) 30 Mg Cap, 1 CAP PO QPM, #30 CAP 1 Refill 10/19/24 Hydroxyzine Hcl (Hydroxyzine Hcl) 10 Mg/5 Ml Syp, 10 MG PO, SYP 10/19/24 Buspirone HCl (Buspirone HCl) 10 Mg Tab, 1 TAB PO TID 10/03/24 Metformin Hydrochloride (Metformin Hcl) 500 Mg Tab, BID 02/05/13 Information Source: Patient Mode of Arrival: Wheelchair Severity: Moderate Past Medical History PAST MEDICAL HISTORY: Cancer, DM, High Lipids, HTN Surgical History: Cholecystectomy Family History Family History: Unknown Social History Smoker: Cigarettes Alcohol: Occasionally Drugs: Marijuana Lives In: Home Constitutional: reports: fatigue, malaise, sweats; denies: chills, diaphoresis, fever, weakness, others EENTM: denies: blurred vision, double vision, ear bleeding, ear discharge, ear drainage, ear pain, ear ringing, eye pain, eye redness, hearing loss, mouth pain, mouth swelling, nasal discharge, nose bleeding, nose congestion, nose pain, photophobia, tearing, throat pain, throat swelling, voice changes, others Respiratory: denies: cough, hemoptysis, orthopnea, SOB at rest, shortness of breath, SOB with excertion, stridor, wheezing, others Cardiovascular: denies: chest pain, dizzy spells, diaphoresis, Dyspnea on exertion, edema, irregular heart beat, left arm pain, lightheadedness, palpitations, PND, syncope, others Gastrointestinal: reports: nausea, vomiting; denies: abdomen distended, abdominal pain, blood streaked bowels, constipated, diarrhea, dysphagia, difficulty swallowing, hematemesis, melena, poor appetite, poor fluid intake, rectal bleeding, rectal pain, others Genitourinary: denies: burning, dysuria, flank pain, frequency, hematuria, incontinence, penile discharge, penile sore, pain, testicle pain, testicle swelling, urgency, others Neurological: denies: dizziness, fainting, headache, left sided numbness, left sided weakness, numbness, paresthesia, pre-existing deficit, right sided numbness, right sided weakness, seizure, speech problems, tingling, tremors, weakness, others Musculoskeletal: denies: back pain, gout, joint pain, joint swelling, muscle pain, muscle stiffness, neck pain, others Integumetry: denies: bruises, change in color, change in hair/nails, dryness, laceration, lesions, lumps, rash, wounds, others Allergic/Immunocompromised: denies: Difficulty Healing, Frequent Infections, Hives, Itching, others Hematologic/Lymphatic: denies: anemia, blood clots, easy bleeding, easy bruising, swollen glands, others Physical Exam General Appearance: No Apparent Distress HEENT: Normal ENT Inspection, Pharynx Normal, TMs Normal Neck: Full Range of Motion, Non-Tender, Normal, Normal Inspection Respiratory: Chest Non-Tender, Lungs Clear, No Accessory Muscle Use, No Respiratory Distress, Normal Breath Sounds Cardiovascular: No Edema, No JVD, No Murmur, No Gallop, Normal Peripheral Pulses, Regular Rate/Rhythm Breast Exam: Deferred Gastrointestinal: No Organomegaly, Non Tender, No Pulsatile Mass, Normal Bowel Sounds, Soft Genitalia: Deferred Pelvic: Deferred Rectal: Deferred Extremities: No calf tenderness, Normal capillary refill, Normal inspection, Normal range of motion, Non-tender, No pedal edema Musculoskeletal : Apperance: Normal Neurologic: Alert, print line supervisor II-XII nml as Tested, No Motor Deficits, Normal Affect, Normal Mood, No Sensory Deficits Cerebellar Function: Normal Reflexes: Normal Skin: Dry, Normal Color, Warm Lymphatic: No Adenopathy Was a procedure done? Was a procedure done?: No Differential Dx Considerations may include: Hypokalemia, leukemia, colorectal cancer X-Ray, Labs, Meds, VS Vital Signs Date Time Temp Pulse Resp B/P (MAP) Pulse Ox O2 Delivery O2 Flow Rate FiO2 11/22/24 16:53 98.4 100 17 131/81 (98) 98 Lab Test 11/22/24 19:22 11/22/24 17:11 Range/Units Potassium Level 2.8 L 2.8 L 3.5-5.1 mmol/L White Blood Count 12.3 H 4.4-10.8 10^3/uL Red Blood Count 4.60 4.5-5.90 10^6/uL Hemoglobin 11.0 L 13.5-17.5 g/dL Hematocrit 34.5 L 41.0-53.0 % Mean Corpuscular Volume 75.1 L 80.0-100.0 fL Mean Corpuscular Hemoglobin 23.8 L 28.0-32.0 pg Mean Corpuscular Hemoglobin Concent 31.7 L 32.0-36.0 g/dL Red Cell Distribution Width 18.7 H 11.8-14.3 % Platelet Count 687 H 140-450 10^3/uL Mean Platelet Volume 6.9 6.9-10.8 fL Neutrophils (%) (Auto) 74.0 37.0-80.0 % Lymphocytes (%) (Auto) 15.5 10.0-50.0 % Monocytes (%) (Auto) 9.5 0.0-12.0 % Eosinophils (%) (Auto) 0.3 0.0-7.0 % Basophils (%) (Auto) 0.7 0.0-2.0 % Neutrophils # (Auto) 9.1 H 1.6-8.6 10 ^3/uL Lymphocytes # (Auto) 1.9 0.4-5.4 10 ^3/uL Monocytes # (Auto) 1.2 0-1.3 10 ^3/uL Eosinophils # (Auto) 0 0-0.8 10 ^3/uL Basophils # (Auto) 0.1 0-0.2 10 ^3/uL Nucleated Red Blood Cells 0.0 % Sodium Level 132 L 136-145 mmol/L Chloride Level 94 L 98-107 mmol/L Carbon Dioxide Level 28 20-31 mmol/L Anion Gap 10 5-15 Blood Urea Nitrogen 8 L 9-23 mg/dL Creatinine 0.68 L 0.700-1.30 mg/dL Glomerular Filtration Rate Calc 108 >90 mL/min BUN/Creatinine Ratio 11.8 10.0-20.0 Serum Glucose 234 H 74-106 mg/dL Calcium Level 9.6 8.7-10.4 mg/dL Total Bilirubin 0.6 0.2-1.0 mg/dL Aspartate Amino Transferase (AST) 39 13-40 U/L Alanine Aminotransferase (ALT) 23 7-40 U/L Alkaline Phosphatase 311 H 46-116 U/L Total Protein 7.4 5.7-8.2 g/dL Albumin 4.2 3.2-4.8 g/dL X-Ray, Labs, Meds, VS Comment Imaging: X-rays and CT scans were reviewed and interpreted by this provider, imaging shows no fractures and no pathological disease. Pending radiology review. Laboratory: Labs reviewed and interpreted by this provider. Potassium of 2.8 Patient has prior medical visits reviewed. Med reconciliation performed Vital signs reviewed Time of 1ST Reevaluation: 20:54 Reevaluation 1ST: Unchanged Patient Education/Counseling: Treatment, Need For Follow Up (Patient advised to follow-up in the emergency room in the next 24 to 48 hours if symptoms do not improve. Advised follow-up with PCP in the next 3 to 5 days. Patient verbalized understanding. 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
[2024-11-22 21:20] VITALS: BP 130/62; PULSE 97; RESP 18; TEMP 98.6; O2SAT 98
[2024-11-22] MEDS: SODIUM CHLORIDE 0.9% 1,000 ML IV ONE (21:27)
[2024-11-22] MEDS: METOCLOPRAMIDE HCL 5MG/ml INJ 2ml VIAL IV ONE (21:27)
[2024-11-22] MEDS: POTASSIUM EFFERVESENT TAB 25 MEQ PO ONE (21:28)
== END 2024-11-22 22:19 | disposition home or self-care (01) ==
LOC: ER 16:39
DX: R74.8 Abnormal levels of other serum enzymes (principal); D72.1 Eosinophilia; E87.6 Hypokalemia; E11.9 Type 2 diabetes mellitus without complications; E78.5 Hyperlipidemia, unspecified; I10 Essential (primary) hypertension; F17.210 Nicotine dependence, cigarettes, uncomplicated; F15.90 Other stimulant use, unspecified, uncomplicated; Z90.49 Acquired absence of other specified parts of digestive tract; Z88.6 Allergy status to analgesic agent; Z79.899 Other long term (current) drug therapy
CPT/HCPCS: 36415; 80053; 84132; 85025; 96361; 96374; 99283; J2765; 96365; 96375

== ENCOUNTER → 2024-11-22 | Outpatient (CLI) | payer MEDICAID ==
[~2024-11-22] MED LIST changes: +POTA-180 PO
[2024-11-22 15:46] LABS: Basophils # (auto) 0.1 10 ^3/uL (0-0.2); Basophils % (auto) 0.5 % (0.0-2.0); Eosinophils # (auto) 0 10 ^3/uL (0-0.8); Eosinophils % (auto) 0.4 % (0.0-7.0); Hematocrit 37.3 % (41.0-53.0); Hemoglobin 11.8 g/dL (13.5-17.5); Lymphocytes # (auto) 1.7 10 ^3/uL (0.4-5.4); Lymphocytes % (auto) 14.6 % (10.0-50.0); Mean Corpuscular Hgb Conc. 31.6 g/dL (32.0-36.0); Mean Corpuscular Volume 75.9 fL (80.0-100.0); Monocytes # (auto) 1.2 10 ^3/uL (0-1.3); Monocytes % (auto) 10.3 % (0.0-12.0); Neutrophils # (auto) 8.6 10 ^3/uL (1.6-8.6); Neutrophils % (auto) 74.2 % (37.0-80.0); Platelet Count (auto) 704 10^3/uL (140-450); Red Blood Cells 4.92 10^6/uL (4.5-5.90); Red Cell Distribution Width 18.7 % (11.8-14.3); White Blood Cell 11.6 10^3/uL (4.4-10.8)
[2024-11-22 16:14] LABS: Alanine Aminotransferase 23 U/L (7-40); Albumin 4.3 g/dL (3.2-4.8); Anion Gap 11 (5-15); Aspartate Aminotransferase 39 U/L (13-40); BUN/Creatinine Ratio 11.9 (10.0-20.0); Bilirubin, Total 0.7 mg/dL (0.2-1.0); Carbon Dioxide 30 mmol/L (20-31); Total Protein 7.5 g/dL (5.7-8.2)
[2024-11-22 16:17] LABS: Alkaline Phosphatase 330 U/L (46-116); Blood Urea Nitrogen 8 mg/dL (9-23); Chloride 93 mmol/L (98-107); Glucose 254 mg/dL (74-106); Potassium 2.8 mmol/L (3.5-5.1); Sodium 134 mmol/L (136-145)
== END | disposition home or self-care (01) ==
LOC: LAB 15:31
PROVIDERS: ATTEND Internal Medicine
DX: E86.0 Dehydration (principal); R16.0 Hepatomegaly, not elsewhere classified
CPT/HCPCS: 36415; 80053; 85025